=== PATIENT | female | born 1945 | race African-American/Black ===

== ENCOUNTER 2016-07-26 14:30 | Inpatient (IN) | payer MEDICARE ==
--- NOTE | 2016-07-26 15:14 | ED ---
Psych HPI - General Chief Complaint: Psychiatric Symptoms Stated Complaint: Mental Health Time Seen by Provider: 07/26/16 14:58 Source: patient Mode of arrival: ambulatory - History of Present Illness Initial Comments: This 70 year-old female presents with daughter with psychiatric concerns. The daughter states that she's been confused, combative, having grandiose thoughts, has had excessive spending, slings, sleepiness, personality changes, ananya, repetitive thoughts, calling people today at night, and suicidal thoughts. This apparently started right around July 08 and has been progressively worsening. They deny any previous known psychiatric problems. She apparently was diagnosed with temporal arteritis back in May and has been on prednisone. This is been tapered down from 60 mg a day to 15 mg per day. She is being treated at [facility] for this. They're unsure if her symptoms could be related to this. She was seen at [facility] recently and had a computed tomography scan urinalysis and blood work done which was essentially within normal limits. They have also followed up at [facility]. The patient does relate that she has depression and suicidal ideations but no plan. No other complaints or modifying factors. - Related Data Home Medications Medication Instructions Recorded Confirmed Glimepiride [Amaryl] 4 mg PO AC-BID 05/14/16 07/26/16 Levothyroxine Sodium [Synthroid] 50 mcg PO DAILY 05/14/16 07/26/16 Losartan Potassium 100 mg PO DAILY 05/14/16 07/26/16 Meloxicam [Mobic] 7.5 mg PO BID 05/14/16 07/26/16 amLODIPine [Norvasc] 5 mg PO BID 05/14/16 07/26/16 metFORMIN HCL [Glucophage] 1,000 mg PO BID 05/14/16 07/26/16 Ergocalciferol [Vitamin D2] 50,000 unit PO Q14D 07/26/16 07/26/16 Gabapentin [Neurontin] 300 mg PO DAILY 07/26/16 07/26/16 Insulin Aspart [NovoLOG] See Protocol SQ AC-TID 07/26/16 07/26/16 Insulin Glargine,Hum.rec.anlog 16 units SQ HS 07/26/16 07/26/16 [Hussain Guerrero] predniSONE 2.5 mg PO QAM 07/26/16 07/26/16 predniSONE 5 mg PO QAM 07/26/16 07/26/16 risperiDONE [RisperDAL] 0.5 mg PO BID 07/26/16 07/26/16 Allergies Allergy/AdvReac Type Severity Reaction Status Date / Time codeine AdvReac Nausea & Verified 07/26/16 14:54 Vomiting Review of Systems ROS Statement: Those systems with pertinent positive or pertinent negative responses have been documented in the HPI. ROS Other: All systems not noted in ROS Statement are negative. Past Medical History Past Medical History: Coronary Artery Disease (CAD), Dementia, Hyperlipidemia, Hypertension, Thyroid Disorder History of Any Multi-Drug Resistant Organisms: None Reported Additional Past Surgical History / Comment(s): carotid gland surgery Past Psychological History: No Psychological Hx Reported Smoking Status: Never smoker Past Alcohol Use History: None Reported Past Drug Use History: None Reported General Exam - General Exam Comments Initial Comments: GENERAL: The patient is well nourished and well hydrated. VITAL SIGNS: Heart rate, blood pressure, respiratory rate reviewed as recorded in nurse's notes. EYES: Pupils are round and reactive. Extraocular movements are intact. No conjunctival / lid redness or swelling. ENT: No external evidence of injury, swelling, or ecchymosis. Airway is patent. Throat is clear. NECK: Nontender. No swelling or evidence of injury. No subcutaneous emphysema. Trachea is midline. No thyroid mass. HEART: Regular rate and rhythm. Good peripheral pulses. LUNGS/CHEST: Breath sounds clear and equal bilaterally. No rales, rhonchi, or wheezes. No ecchymosis, subcutaneous emphysema, or tenderness. ABDOMEN: Abdomen soft without tenderness. No palpable masses or organomegaly. No peritoneal signs. No abdominal wall swelling or ecchymosis. EXTREMITIES: No extremity tenderness. Normal muscle tone and function. No thoracolumbar tenderness. NEUROLOGIC: Sensation is grossly intact. Cranial nerve exam reveals face is symmetrical, tongue is midline, speech is clear. SKIN: No abrasions or ecchymosis is noted. No induration or masses noted. PSYCHIATRIC: Alert and in no distress. Patient does have flight of thoughts and is quite conversive. Course Vital Signs 07/26/16 07/26/16 07/26/16 14:50 16:48 20:46 Temperature 98.3 F 97.8 F Pulse Rate 118 H 101 H 91 Respiratory 22 20 16 Rate Blood Pressure 174/103 158/90 155/89 O2 Sat by Pulse 98 98 98 Oximetry Medical Decision Making - Medical Decision Making The patient was seen and examined. All diagnostics are reviewed. These are fairly unremarkable. There is a slight elevation of the nonfasting blood sugar. A psychiatry consult is placed. They have evaluated the patient and are attempting psychiatric placement. It is felt as though she is medically cleared for further psychiatric treatment. - Lab Data Result diagrams: 07/26/16 16:41 07/26/16 16:41 Lab Results 07/26/16 07/26/16 07/26/16 Range/Units 15:38 16:41 16:41 WBC 10.9 H (3.8-10.6) k/uL RBC 4.63 (3.80-5.40) m/uL Hgb 12.0 (11.4-16.0) gm/dL Hct 38.7 (34.0-46.0) % MCV 83.7 (80.0-100.0) fL MCH 25.9 (25.0-35.0) pg MCHC 31.0 (31.0-37.0) g/dL RDW 15.3 (11.5-15.5) % Plt Count 221 (150-450) k/uL Neutrophils % 82 % Lymphocytes % 12 % Monocytes % 3 % Eosinophils % 1 % Basophils % 0 % Neutrophils # 9.0 H (1.3-7.7) k/uL Lymphocytes # 1.3 (1.0-4.8) k/uL Monocytes # 0.4 (0-1.0) k/uL Eosinophils # 0.1 (0-0.7) k/uL Basophils # 0.0 (0-0.2) k/uL Hypochromasia Slight Sodium 144 (137-145) mmol/L Potassium 4.3 (3.5-5.1) mmol/L Chloride 105 (98-107) mmol/L Carbon Dioxide 24 (22-30) mmol/L Anion Gap 15 mmol/L BUN 16 (7-17) mg/dL Creatinine 0.96 (0.52-1.04) mg/dL Est GFR (MDRD) Af Amer >60 (>60 ml/min/1.73 sqM) Est GFR (MDRD) Non-Af 58 (>60 ml/min/1.73 sqM) Glucose 177 H (74-99) mg/dL Calcium 9.9 (8.4-10.2) mg/dL Urine Color Colorless Urine Appearance Clear (Clear) Urine pH 5.5 (5.0-8.0) Ur Specific [place] 1.006 (1.001-1.035) Urine Protein Negative (Negative) Urine Glucose (UA) 3+ H (Negative) Urine Ketones Negative (Negative) Urine Blood Negative (Negative) Urine Nitrate Negative (Negative) Urine Bilirubin Negative (Negative) Urine Urobilinogen <2.0 (<2.0) mg/dL Ur Leukocyte Esterase Negative (Negative) Salicylates <1.0 mg/dL Urine Opiates Screen Not Detected (NotDetected) Ur Oxycodone Screen Not Detected (NotDetected) Urine Methadone Screen Not Detected (NotDetected) Ur Propoxyphene Screen Not Detected (NotDetected) Acetaminophen <10.0 ug/mL Ur Barbiturates Screen Not Detected (NotDetected) U Tricyclic Antidepress Not Detected (NotDetected) Ur Phencyclidine Scrn Not Detected (NotDetected) Ur Amphetamines Screen Not Detected (NotDetected) U Methamphetamines Scrn Not Detected (NotDetected) U Benzodiazepines Scrn Not Detected (NotDetected) Urine Cocaine Screen Not Detected (NotDetected) U Marijuana (THC) Screen Not Detected (NotDetected) Serum Alcohol <10 mg/dL Disposition Clinical Impression: Depression, Suicidal ideation, Acute psychosis, Ananya Disposition: OTHER INSTITUTION NOT DEFINED Time of Disposition: 21:20 - Out of Hospital Transfer - Req. Specs Out of Hospital Transfer - Requested Specifics: Psychiatric Non-ICU (Admit - geriatric psych)
[2016-07-26 15:55] LABS: Appearance,Urine Clear (Clear); Bilirubin,Urine Negative (Negative); Glucose,Urine (UA) 3+ (Negative); Ketones,Urine Negative (Negative); Leukocyte Esterase,Urine Negative (Negative); Nitrite,Urine Negative (Negative); PH, Urine 5.5 (5.0-8.0); Protein,Urine Negative (Negative); Specific Gravity,Urine 1.006 (1.001-1.035); UA Billing (MACRO vs. MICRO) CHEM; Urobilinogen,Urine <2.0 mg/dL (<2.0)
[2016-07-26 16:52] LABS: Basophils % (A) 0 %; CH 26.2; CHCM 31.4; Eosinophils # (A) 0.1 k/uL (0-0.7); Eosinophils % (A) 1 %; HCT 38.7 % (34.0-46.0); HDW 2.83; Hypochromasia Slight; Luc # (Auto) 0.17; Luc % (Auto) 2; Lymphocytes # (A) 1.3 k/uL (1.0-4.8); Lymphocytes % (A) 12 %; MCH 25.9 pg (25.0-35.0); MCV 83.7 fL (80.0-100.0); Mean Platelet Volume 6.8; Monocytes # (A) 0.4 k/uL (0-1.0); Monocytes % (A) 3 %; Neutrophils % (A) 82 %; RBC 4.63 m/uL (3.80-5.40); RDW 15.3 % (11.5-15.5); WBC 10.9 k/uL (3.8-10.6); WBC (Perox) 10.94
[2016-07-26 17:02] LABS: Acetaminophen <10.0 ug/mL; Alcohol <10 mg/dL; Anion Gap 15 mmol/L; Blood Urea Nitrogen 16 mg/dL (7-17); Calcium 9.9 mg/dL (8.4-10.2); Carbon Dioxide 24 mmol/L (22-30); Chloride 105 mmol/L (98-107); Glucose 177 mg/dL (74-99); Non-African American GFR(MDRD) 58 (>60 ml/min/1.73 sqM); Potassium 4.3 mmol/L (3.5-5.1); Salicylate <1.0 mg/dL; Sodium 144 mmol/L (137-145)
[2016-07-27] MEDS ORDERED: MAG HYDROX/AL HYDROX/SIMETH 30 ML CUP PO PRN (02:59)
[2016-07-27] MEDS ORDERED: risperiDONE 0.5 MG TAB PO SCH ×2 (04:00→09:00)
[2016-07-27] MEDS: ACETAMINOPHEN TAB 325 MG TAB PO PRN (04:45)
[2016-07-27 06:47] LABS: Glucose,Whole Blood 96 mg/dL (75-99)
[2016-07-27] MEDS: LEVOTHYROXINE 50 MCG TAB PO SCH (07:18)
[2016-07-27] MEDS: INSULIN LISPRO (humaLOG) 300 UNIT/3 ML VIAL SQ SCH ×4 (07:44→20:31)
[2016-07-27] MEDS: amLODIPine 5 MG TAB PO SCH ×2 (07:52→20:32)
[2016-07-27] MEDS: GLIMEPIRIDE 2 MG TAB PO SCH ×2 (07:52→17:54)
[2016-07-27] MEDS: LOSARTAN 50 MG TAB PO SCH (07:53)
[2016-07-27] MEDS: metFORMIN 500 MG TAB PO SCH ×2 (07:54→20:31)
[2016-07-27] MEDS: predniSONE 5 MG TAB PO SCH (07:55)
[2016-07-27] MEDS: predniSONE 10 MG TAB PO SCH (07:56)
[2016-07-27] MEDS ORDERED: ERGOCALCIFEROL 50,000 UNIT CAP PO SCH (09:00)
[2016-07-27 11:13] LABS: Hemoglobin A1C 7.7 % (4.2-6.1)
[2016-07-27 12:23] LABS: Glucose,Whole Blood 185 mg/dL (75-99)
--- NOTE | 2016-07-27 15:30 | P.HP ---
Psychiatric H&P - . History & Physical: Allergies Allergy/AdvReac Type Severity Reaction Status Date / Time codeine AdvReac Nausea & Verified 07/27/16 11:36 Vomiting Vital Signs Temp 97.6 F 07/27/16 03:00 Pulse 75 07/27/16 03:00 Resp 18 07/27/16 03:00 BP 171/88 07/27/16 03:00 Pulse Ox 98 07/27/16 01:26 Intake & Output 07/26/16 07/27/16 07/27/16 18:59 06:59 18:59 Weight 97.267 kg 97.267 kg Laboratory Last Values WBC 10.9 k/uL (3.8-10.6) H 07/26/16 16:41 RBC 4.63 m/uL (3.80-5.40) 07/26/16 16:41 Hgb 12.0 gm/dL (11.4-16.0) 07/26/16 16:41 Hct 38.7 % (34.0-46.0) 07/26/16 16:41 MCV 83.7 fL (80.0-100.0) 07/26/16 16:41 MCH 25.9 pg (25.0-35.0) 07/26/16 16:41 MCHC 31.0 g/dL (31.0-37.0) 07/26/16 16:41 RDW 15.3 % (11.5-15.5) 07/26/16 16:41 Plt Count 221 k/uL (150-450) 07/26/16 16:41 Neutrophils % 82 % 07/26/16 16:41 Lymphocytes % 12 % 07/26/16 16:41 Monocytes % 3 % 07/26/16 16:41 Eosinophils % 1 % 07/26/16 16:41 Basophils % 0 % 07/26/16 16:41 Neutrophils # 9.0 k/uL (1.3-7.7) H 07/26/16 16:41 Lymphocytes # 1.3 k/uL (1.0-4.8) 07/26/16 16:41 Monocytes # 0.4 k/uL (0-1.0) 07/26/16 16:41 Eosinophils # 0.1 k/uL (0-0.7) 07/26/16 16:41 Basophils # 0.0 k/uL (0-0.2) 07/26/16 16:41 Hypochromasia Slight 07/26/16 16:41 Sodium 144 mmol/L (137-145) 07/26/16 16:41 Potassium 4.3 mmol/L (3.5-5.1) 07/26/16 16:41 Chloride 105 mmol/L (98-107) 07/26/16 16:41 Carbon Dioxide 24 mmol/L (22-30) 07/26/16 16:41 Anion Gap 15 mmol/L 07/26/16 16:41 BUN 16 mg/dL (7-17) 07/26/16 16:41 Creatinine 0.96 mg/dL (0.52-1.04) 07/26/16 16:41 Est GFR (MDRD) Af Amer >60 (>60 ml/min/1.73 sqM) 07/26/16 16:41 Est GFR (MDRD) Non-Af 58 (>60 ml/min/1.73 sqM) 07/26/16 16:41 Glucose 177 mg/dL (74-99) H 07/26/16 16:41 POC Glucose (mg/dL) 185 mg/dL (75-99) H 07/27/16 12:18 POC Glu Senior Occupational Therapist ID [place] Aguilar 07/27/16 12:[address] Glu mg/dL 174 mg/dL 07/26/16 16:41 Hemoglobin A1c 7.7 % (4.2-6.1) H 07/26/16 16:41 Calcium 9.9 mg/dL (8.4-10.2) 07/26/16 16:41 TSH 1.140 mIU/L (0.465-4.680) 07/26/16 16:41 Urine Color Colorless 07/26/16 15:38 Urine Appearance Clear (Clear) 07/26/16 15:38 Urine pH 5.5 (5.0-8.0) 07/26/16 15:38 Ur Specific [place] 1.006 (1.001-1.035) 07/26/16 15:38 Urine Protein Negative (Negative) 07/26/16 15:38 Urine Glucose (UA) 3+ (Negative) H 07/26/16 15:38 Urine Ketones Negative (Negative) 07/26/16 15:38 Urine Blood Negative (Negative) 07/26/16 15:38 Urine Nitrate Negative (Negative) 07/26/16 15:38 Urine Bilirubin Negative (Negative) 07/26/16 15:38 Urine Urobilinogen <2.0 mg/dL (<2.0) 07/26/16 15:38 Ur Leukocyte Esterase Negative (Negative) 07/26/16 15:38 Salicylates <1.0 mg/dL 07/26/16 16:41 Urine Opiates Screen Not Detected (NotDetected) 07/26/16 15:38 Ur Oxycodone Screen Not Detected (NotDetected) 07/26/16 15:38 Urine Methadone Screen Not Detected (NotDetected) 07/26/16 15:38 Ur Propoxyphene Screen Not Detected (NotDetected) 07/26/16 15:38 Acetaminophen <10.0 ug/mL 07/26/16 16:41 Ur Barbiturates Screen Not Detected (NotDetected) 07/26/16 15:38 U Tricyclic Antidepress Not Detected (NotDetected) 07/26/16 15:38 Ur Phencyclidine Scrn Not Detected (NotDetected) 07/26/16 15:38 Ur Amphetamines Screen Not Detected (NotDetected) 07/26/16 15:38 U Methamphetamines Scrn Not Detected (NotDetected) 07/26/16 15:38 U Benzodiazepines Scrn Not Detected (NotDetected) 07/26/16 15:38 Urine Cocaine Screen Not Detected (NotDetected) 07/26/16 15:38 U Marijuana (THC) Screen Not Detected (NotDetected) 07/26/16 15:38 Serum Alcohol <10 mg/dL 07/26/16 16:41 07/27/16 15:00 IDENTIFYING DATA: This patient is a 70-year-old -[place] female who was admitted to the mental health unit through the emergency room for acute symptoms of rabia and psychosis. HPI: The patient presents with a petition filled out by her daughter Loren stating "confusion total loss of short-term memory, combativeness, impulsive spending emptied her account checking, suicidal thoughts, fits of rage, insomnia only 3 hours a night, rambling, rabia, delusions, grand ideas, thinks she has $700,000 in bank, leaving she had a conversation she didn't have, leaving the house refusing to return running to the bank". The patient states that she has temporal arteritis and she is currently on prednisone 15 mg daily. She reports that this was started back in May and since then she has had a multitude of symptoms. She agrees with many of the symptoms on the petition except for the excessive spending. She also states that she does not intend to stay on this mental health unit and wants to be discharged today. She threatens to natalee me if I don't release her. She states she has an organization called "[employer]" and plans to purchase 9 homes as part of a community outreach. She reports no hallucinations other than hearing "the voice of the Lord". She describes having paranoid thoughts and grandiose ideas. She reports no suicidal or homicidal ideation. She is endorsing no anxiety. She states that she does feel depressed and has suicidal ideation because "people keep bothering me and bugging me about the symptoms". She had recently presented to her primary care physician's office and Risperdal 0.5 mg twice daily was prescribed but the medication was not started as an outpatient. I was able to speak with the petitioner and the patient's other daughter in person and we discussed the patient's diagnosis and treatment. They emphasized the patient's recent insomnia. Her daughters requested visiting off of normal visiting times and that will be granted PAST PSYCHIATRIC HISTORY: No prior inpatient psychiatric care, no current outpatient psychiatric care, she states that she did have a suicide attempt at age 19 where she overdosed on sleeping pills but was not subsequently hospitalized. PMH: Diagnosis of temporal arteritis, coronary artery disease, hyperlipidemia, hypertension, thyroid disease, diabetes ALLERGIES: NO KNOWN DRUG ALLERGIES MEDICATIONS: The patient is currently prescribed Norvasc, Amaryl, Motrin, Humalog, Synthroid, Cozaar, Glucophage, prednisone 15 mg daily [] CHEMICAL DEPENDENCY HISTORY: No reported use of alcohol, marijuana, or any other illicit drug. She reports that she quit cigarette smoking. She has never been in residential treatment for chemical dependency reasons. FAMILY PSYCHIATRIC HISTORY: She states to her brothers were known to have had psychosis and one required inpatient psychiatric treatment, no suicides in the family FAMILY CHEMICAL DEPENDENCY HISTORY: Unknown SOCIAL HISTORY: The patient is a 70-year-old -[place] female she states she has been for over 40 years. She reports having 3 children 2 of her grandchildren live with her. 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 She has a high school education and attended 2 years at [employer]. She had 9 siblings but states all of them are . She has no history of service. She reports being born and raised in [place] and has lived here her whole life. In terms of legal history she states when she was an adolescent she was arrested for shoplifting, she reports no abuse history. MENTAL STATUS EXAM: The patient is an overweight -[place] female appearing her stated age, she presents with adequate hygiene grooming she is ambulating with a wheeled walker. Eye contact is appropriate. She is initially pleasant but becomes argumentative during the course of the hospitalization. She reports her mood is fine she states she has struggled since using the steroids however. Her speech is fluent spontaneous for boasts and pressured at times. She spontaneously reports grandiose thinking as well as paranoid and persecutory thoughts. She seems to have moments of insight recognizing she is doing things out of character and at other times lacks that insight and demands to be discharged. Insight and judgment are impaired. She is reporting suicidal ideation and depressive symptoms but no homicidal ideation. In terms of hallucinations she states "I hear the voice of the Lord" . She demonstrates no verbal or physical aggressiveness but does get mildly agitated towards the end of our interview when discussing treatment planning. She is alert she is oriented to person place and date she was able to register 3 words but could not recall any of the 3 after delay of 3 minutes. She was able to recall 2 words with multiple choice cues but could not get the third. When asked to name the months of the year backwards she omitted September when asked to name 5 major cities [facility] she began naming states. She was prompted and began naming states again and was prompted a third time and named 5 cities in [place] she was able to name 3 objects and she was able to abstract a proverb STRENGTHS/WEAKNESSES: Strengths: Family support, housing, income weaknesses: Current symptoms of rabia and psychosis INTELLECTUAL FUNCTIONING: Average IMPRESSIONS: [] 1. Psychosis unspecified rule out symptoms of psychosis and rabia secondary to steroid use, rule out remote history of depression 2. Deferred 3. Coronary artery disease, diabetes, hypothyroidism, temporal arteritis 4. Psychosocial dysfunction secondary to symptoms of rabia and psychosis PLAN: The patient has been admitted to the mental health unit she is here in voluntarily. I will complete a second clinical certificate due to her unwillingness to remain here voluntarily. We will utilize Risperdal 1 mg at bedtime, the M tab formulation. She has been seen by the sap abap developer for a medical consultation. Social work has met with the patient for a psychosocial assessment and begin discharge planning. We will monitor the patient for safety and encourage her appropriate participation in the milieu and monitor for symptoms of rabia and psychosis. We will monitor her sleep at night. As noted I met with her daughters to discuss diagnosis and treatment planning and discharge planning. We discussed utilizing Risperdal for symptoms of rabia and psychosis it's potential benefits and risks. 07/27/16 15:20
[2016-07-27 17:40] LABS: Glucose,Whole Blood 145 mg/dL (75-99)
[2016-07-27 20:13] LABS: Glucose,Whole Blood 144 mg/dL (75-99)
[2016-07-27] MEDS: risperiDONE ODT 1 MG TAB PO SCH (20:56)
--- NOTE | 2016-07-27 23:20 | P.CONS ---
History of Present Illness - Reason for Consult Consult date: 07/27/16 - History of Present Illness This is a pleasant 70 year old lady patient of Dr Johnston. She was recently diagnosed having temporal arteritis proven by biopsy, follwed at [facility] requiring oral tapering prednisone on director long term care basis. She is currently uisng 15 mg prednisone, She also has underlying diabetes mellitus type 2, hypothyroidism, hypertension.. She comes in thru the emergency room with psychosis, ananya symptoms and insomnia, agitation, She hasnt had sleep isnce 2015 when she was diagnosed to have temporal arteritis. She states improve t of her symptoms after stqrting resperidal. sHe has excessive spending, personality change, suicidal thoughts with current plans. Review of Systems All systems: negative Constitutional: Reports as per HPI, Reports fatigue, Denies anorexia, Denies chills, Denies chronic headaches, Denies chronic pain, Denies daytime sleepiness , Denies fever, Denies lethargy, Denies malaise, Denies night sweats, Denies poor appetite, Denies sweats, Denies weakness, Denies weight gain, Denies weight loss Cardiovascular: Reports as per HPI, Denies chest pain, Denies claudication, Denies decreased exercise tolerance, Denies dyspnea on exertion, Denies edema, Denies high blood pressure, Denies irregular heart beat, Denies leg edema, Denies lightheadedness, Denies orthopnea, Denies palpitations, Denies paroxysmal nocturnal dyspnea, Denies phlebitis, Denies rapid heart beat, Denies shortness of breath, Denies syncope Gastrointestinal: Reports as per HPI, Reports abdominal pain, Denies belching, Denies bloating, Denies BRBPR, Denies change in bowel habits, Denies coffee ground emesis, Denies constipation, Denies diarrhea, Denies dyspepsia, Denies early satiety, Denies excessive gas, Denies heartburn, Denies hematemesis, Denies hematochezia, Denies indigestion, Denies jaundice, Denies lactose intolerance, Denies loss of appetite, Denies melena, Denies nausea, Denies vomiting Genitourinary: Reports as per HPI, Denies abnormal vaginal bleeding, Denies decreased libido, Denies difficulty conceiving, Denies difficulty voiding, Denies dysmenorrhea, Denies dyspareunia, Denies dysuria, Denies flank pain, Denies genital sores, Denies hematuria, Denies hot flashes, Denies incomplete emptying, Denies kidney stones, Denies menorrhagia, Denies mixed incontinence, Denies nocturia, Denies pelvic pain, Denies post void dribbling, Denies , Denies prolapse symptoms, Denies stress incontinence, Denies urge incontinence , Denies urgency, Denies urinary frequency, Denies vaginal discharge, Denies vaginal dryness, Denies vaginal itching, Denies vaginal odor Menstruation: Reports as per HPI, Reports postmenopausal Musculoskeletal: Reports as per HPI, Reports gait dysfunction, Denies arm numbness/tingling, Denies atrophy, Denies fractures, Denies frequent falls, Denies hot joints, Denies leg numbness/tingling, Denies limitation of motion, Denies loss of height, Denies low back pain, Denies morning stiffness, Denies muscle cramps, Denies muscle weakness, Denies myalgias, Denies neck pain, Denies neck stiffness, Denies prior amputations, Denies redness of joints, Denies shooting arm pain, Denies shooting leg pain Integumentary: Reports as per HPI Neurological: Reports as per HPI, Denies aphasia, Denies ataxia, Denies balance difficulties, Denies burning pain, Denies change in mentation, Denies change in smell/taste, Denies change in speech, Denies confusion, Denies convulsions, Denies double vision, Denies gait dysfunction, Denies head injury, Denies headaches, Denies hearing difficulties, Denies lack of coordination, Denies loss of vision, Denies memory loss, Denies migraines, Denies motor disturbance, Denies numbness, Denies paralysis, Denies paresthesias, Denies seizures, Denies sensory deficit, Denies spasticity, Denies syncope, Denies tic, Denies tingling , Denies transient paralysis, Denies tremors, Denies vertigo, Denies weakness, Denies visual changes Psychiatric: Reports as per HPI, Denies anhedonia, Denies anxiety, Denies anxiety attacks, Denies change in appetite, Denies change in libido, Denies change in sleep habits, Denies confusion, Denies depression, Denies difficulty concentrating, Denies disorientation, Denies hallucinations, Denies hopelessness , Denies hypersomnia, Denies insomnia, Denies irritability, Denies memory loss, Denies mood swings, Denies paranoia, Denies sadness/tearfulness, Denies sleep disturbances, Denies suicidal ideation Endocrine: Reports as per HPI, Denies cold intolerance, Denies deepening of the voice, Denies excessive sweating, Denies excessive thirst, Denies fatigue, Denies flushing, Denies heat intolerance, Denies high blood sugars, Denies increase in ring/shoe/hat size, Denies low blood sugars, Denies nocturia, Denies palpitations, Denies polydipsia, Denies polyphagia, Denies polyuria, Denies proptosis, Denies recent glucocorticoid use, Denies thyroid mass, Denies weight change Hematologic/Lymphatic: Reports as per HPI Allergic/Immunologic: Reports as per HPI, Denies allergic rhinitis, Denies anaphylaxis, Denies angioedema, Denies gluten intolerance, Denies persistent infections, Denies seasonal allergies, Denies urticaria, Denies wheezing Past Medical History Past Medical History: Coronary Artery Disease (CAD), Dementia, Diabetes Mellitus , Hyperlipidemia, Hypertension, Thyroid Disorder (parotid gland tumor removal, chest wall excisional biopsy benign.) History of Any Multi-Drug Resistant Organisms: None Reported Additional Past Surgical History / Comment(s): carotid gland surgery Past Psychological History: No Psychological Hx Reported Additional Psychological History / Comment(s): Dementia Smoking Status: Never smoker Past Alcohol Use History: None Reported Past Drug Use History: None Reported Medications and Allergies Home Medications Medication Instructions Recorded Confirmed Type Glimepiride [Amaryl] 2 mg PO AC-BID 05/14/16 07/27/16 History Levothyroxine Sodium [Synthroid] 50 mcg PO DAILY 05/14/16 07/26/16 History Losartan Potassium 100 mg PO DAILY 05/14/16 07/26/16 History amLODIPine [Norvasc] 5 mg PO BID 05/14/16 07/26/16 History metFORMIN HCL [Glucophage] 1,000 mg PO BID 05/14/16 07/26/16 History Ergocalciferol [Vitamin D2] 50,000 unit PO Q14D 07/26/16 07/27/16 History Insulin Aspart [NovoLOG] See Protocol SQ AC-TID 07/26/16 07/26/16 History predniSONE 5 mg PO QAM 07/26/16 07/26/16 History predniSONE 10 mg PO QAM 07/26/16 07/27/16 History risperiDONE [RisperDAL] 0.5 mg PO BID 07/26/16 07/26/16 History Ibuprofen [Motrin] 800 mg PO Q8HR PRN 07/27/16 07/27/16 History Allergies Allergy/AdvReac Type Severity Reaction Status Date / Time codeine AdvReac Nausea & Verified 07/27/16 11:36 Vomiting Physical Exam Vitals: Vital Signs Temp Pulse Resp BP 07/27/16 03:00 97.6 F 75 18 171/88 Intake and Output 07/26/16 07/27/16 07/27/16 22:59 06:59 14:59 Other: Weight 97.267 kg 97.267 kg Patient Weight 07/28/16 06:59 Weight 97.267 kg - Constitutional General appearance: average body habitus, cooperative, morbidly obese, no acute distress - EENT Eyes: disc margins sharp, PERRLA, dentition normal ENT: hearing grossly normal, NA/AT, normal oropharynx - Neck Neck: no lymphadenopathy, normal ROM, no other, no rigidity, no stridor, no thyromegaly Thyroid: bilateral: normal size - Respiratory Respiratory: bilateral: CTA - Gastrointestinal General gastrointestinal: normal bowel sounds - Integumentary Integumentary: normal, normal turgor - Musculoskeletal Musculoskeletal: generalized weakness, strength equal bilaterally Results CBC & Chem 7: 07/26/16 16:41 07/26/16 16:41 Labs: Abnormal Lab Results - Last 24 Hours (Table) 07/27/16 Range/Units 12:18 POC Glucose (mg/dL) 185 H (75-99) mg/dL Laboratory Results WBC 10.9 k/uL (3.8-10.6) H 07/26/16 16:41 RBC 4.63 m/uL (3.80-5.40) 07/26/16 16:41 Hgb 12.0 gm/dL (11.4-16.0) 07/26/16 16:41 Hct 38.7 % (34.0-46.0) 07/26/16 16:41 MCV 83.7 fL (80.0-100.0) 07/26/16 16:41 MCH 25.9 pg (25.0-35.0) 07/26/16 16:41 MCHC 31.0 g/dL (31.0-37.0) 07/26/16 16:41 RDW 15.3 % (11.5-15.5) 07/26/16 16:41 Plt Count 221 k/uL (150-450) 07/26/16 16:41 Neutrophils % 82 % 07/26/16 16:41 Lymphocytes % 12 % 07/26/16 16:41 Monocytes % 3 % 07/26/16 16:41 Eosinophils % 1 % 07/26/16 16:41 Basophils % 0 % 07/26/16 16:41 Neutrophils # 9.0 k/uL (1.3-7.7) H 07/26/16 16:41 Lymphocytes # 1.3 k/uL (1.0-4.8) 07/26/16 16:41 Monocytes # 0.4 k/uL (0-1.0) 07/26/16 16:41 Eosinophils # 0.1 k/uL (0-0.7) 07/26/16 16:41 Basophils # 0.0 k/uL (0-0.2) 07/26/16 16:41 Hypochromasia Slight 07/26/16 16:41 Sodium 144 mmol/L (137-145) 07/26/16 16:41 Potassium 4.3 mmol/L (3.5-5.1) 07/26/16 16:41 Chloride 105 mmol/L (98-107) 07/26/16 16:41 Carbon Dioxide 24 mmol/L (22-30) 07/26/16 16:41 Anion Gap 15 mmol/L 07/26/16 16:41 BUN 16 mg/dL (7-17) 07/26/16 16:41 Creatinine 0.96 mg/dL (0.52-1.04) 07/26/16 16:41 Est GFR (MDRD) Af Amer >60 (>60 ml/min/1.73 sqM) 07/26/16 16:41 Est GFR (MDRD) Non-Af 58 (>60 ml/min/1.73 sqM) 07/26/16 16:41 Glucose 177 mg/dL (74-99) H 07/26/16 16:41 POC Glucose (mg/dL) 185 mg/dL (75-99) H 07/27/16 12:18 POC Glu Office Administrator ID [place] Aguilar 07/27/16 12:[address] Glu mg/dL 174 mg/dL 07/26/16 16:41 Hemoglobin A1c 7.7 % (4.2-6.1) H 07/26/16 16:41 Calcium 9.9 mg/dL (8.4-10.2) 07/26/16 16:41 TSH 1.140 mIU/L (0.465-4.680) 07/26/16 16:41 Urine Color Colorless 07/26/16 15:38 Urine Appearance Clear (Clear) 07/26/16 15:38 Urine pH 5.5 (5.0-8.0) 07/26/16 15:38 Ur Specific Golden 1.006 (1.001-1.035) 07/26/16 15:38 Urine Protein Negative (Negative) 07/26/16 15:38 Urine Glucose (UA) 3+ (Negative) H 07/26/16 15:38 Urine Ketones Negative (Negative) 07/26/16 15:38 Urine Blood Negative (Negative) 07/26/16 15:38 Urine Nitrate Negative (Negative) 07/26/16 15:38 Urine Bilirubin Negative (Negative) 07/26/16 15:38 Urine Urobilinogen <2.0 mg/dL (<2.0) 07/26/16 15:38 Ur Leukocyte Esterase Negative (Negative) 07/26/16 15:38 Salicylates <1.0 mg/dL 07/26/16 16:41 Urine Opiates Screen Not Detected (NotDetected) 07/26/16 15:38 Ur Oxycodone Screen Not Detected (NotDetected) 07/26/16 15:38 Urine Methadone Screen Not Detected (NotDetected) 07/26/16 15:38 Ur Propoxyphene Screen Not Detected (NotDetected) 07/26/16 15:38 Acetaminophen <10.0 ug/mL 07/26/16 16:41 Ur Barbiturates Screen Not Detected (NotDetected) 07/26/16 15:38 U Tricyclic Antidepress Not Detected (NotDetected) 07/26/16 15:38 Ur Phencyclidine Scrn Not Detected (NotDetected) 07/26/16 15:38 Ur Amphetamines Screen Not Detected (NotDetected) 07/26/16 15:38 U Methamphetamines Scrn Not Detected (NotDetected) 07/26/16 15:38 U Benzodiazepines Scrn Not Detected (NotDetected) 07/26/16 15:38 Urine Cocaine Screen Not Detected (NotDetected) 07/26/16 15:38 U Marijuana (THC) Screen Not Detected (NotDetected) 07/26/16 15:38 Serum Alcohol <10 mg/dL 07/26/16 16:41 Assessment and Plan Plan: 1. Ananya aggravated by prednisone use and insomnia with sleep deprivation. patient cannot get off the prednisone with fears of causing blindlness from temporal arteritis. she showed immediate response with resperidal. no sleep agents currently offered, medications need to be simplified with the regimen offered by psychiatry. 2. temporal aeteritis, currently on predniosne 15 mg, to be tapered down slowly by [facility] 3. Diabetes Mellitus type 2' currenlty on glimepwride, metofrmin and maribel.og scale correctional coverage 4. hypothyroidism, ucrrently on levothyroxine 5 hypertension on losaetwn norvasc. no current changes made 6insomnia with sleep deprivation syndrome, see above' might need to add melatonin [address] Rinaldi in allowing us to participate in her care. Please do not hesistate to contact us for any medical problems that may arise during her care. Time with Patient: Greater than 30
[2016-07-28] MEDS: ACETAMINOPHEN TAB 325 MG TAB PO PRN (03:38)
[2016-07-28 06:55] LABS: Glucose,Whole Blood 131 mg/dL (75-99)
[2016-07-28] MEDS: LEVOTHYROXINE 50 MCG TAB PO SCH (07:09)
[2016-07-28] MEDS: LOSARTAN 50 MG TAB PO SCH (08:26)
[2016-07-28] MEDS: amLODIPine 5 MG TAB PO SCH ×2 (08:26→21:13)
[2016-07-28] MEDS: GLIMEPIRIDE 2 MG TAB PO SCH ×2 (08:26→17:34)
[2016-07-28] MEDS: predniSONE 10 MG TAB PO SCH (08:27)
[2016-07-28] MEDS: predniSONE 5 MG TAB PO SCH (08:27)
[2016-07-28] MEDS: metFORMIN 500 MG TAB PO SCH ×2 (08:27→21:14)
[2016-07-28] MEDS: INSULIN LISPRO (humaLOG) 300 UNIT/3 ML VIAL SQ SCH ×5 (08:28→21:13)
[2016-07-28] MEDS: IBUPROFEN 800 MG TAB PO PRN ×2 (08:33→21:15)
--- NOTE | 2016-07-28 11:08 | P.PN ---
Progress Note - Text Interval history: The patient is found at a table in the hallway playing cards with a peer. She follows me to an interview room. She states that she would like to be discharged as she has to giveaway houses. She reports having 100s of thousands of dollars and would like to donate to 40 inch TVs to the mental health unit. She states that if I do not agree she will go to the head of the hospital to accomplish this task. She reports she has an divorce attorney retained for several lawsuits. She reports as she feels more comfortable here today she will consider not suing me. She requests to have snacks in between meals and we will have dietary meet with her. She states she slept 4 hours last evening staff report she slept 3 hours last evening. Patient's appetite is stable she has been directable. She becomes mildly agitated when she was weighed as she does not believe the measurement provided. She is reporting no side effects from the Risperdal at this time. Mental status exam: The patient is a overweight -Spanish female appearing her stated age. She is ambulating with a wheeled walker. She is dressed in her own clothing. Eye contact is appropriate speech is spontaneous fluent nonpressured. She spontaneously describes a delusional thought content mainly grandiose in nature. She reports no thoughts of self-harm or harm to others. Thought process can be linear for much of the conversation she can be briefly tangential at times. Insight and judgment impaired. She demonstrates no verbal or physical aggressiveness. Plan: We are utilizing Risperdal 1 mg at bedtime to address her symptoms of psychosis and rabia. We will allow the medication time to demonstrate efficacy. We will continue to monitor her for safety including vital signs. We will ask dietary to meet with the patient regarding the availability of snacks in between meals. Her family will be permitted to visit off normal visiting hours to provide the patient additional support. The patient's encouraged to participate in the milieu.
[2016-07-28 11:38] LABS: Glucose,Whole Blood 127 mg/dL (75-99)
[2016-07-28 17:37] LABS: Glucose,Whole Blood 183 mg/dL (75-99)
[2016-07-28] MEDS ORDERED: ZIPRASIDONE 20 MG VIAL IM PRN (18:17)
[2016-07-28] MEDS: risperiDONE ODT 1 MG TAB PO SCH (18:19)
[2016-07-28 20:21] LABS: Glucose,Whole Blood 152 mg/dL (75-99)
[2016-07-28] MEDS: MELATONIN 3 MG TABLET PO SCH (21:14)
[2016-07-29 06:21] LABS: Glucose,Whole Blood 96 mg/dL (75-99)
[2016-07-29] MEDS: LEVOTHYROXINE 50 MCG TAB PO SCH (06:28)
[2016-07-29] MEDS: LOSARTAN 50 MG TAB PO SCH (08:27)
[2016-07-29] MEDS: GLIMEPIRIDE 2 MG TAB PO SCH ×2 (08:27→18:34)
[2016-07-29] MEDS: metFORMIN 500 MG TAB PO SCH ×2 (08:28→21:16)
[2016-07-29] MEDS: predniSONE 10 MG TAB PO SCH (08:28)
[2016-07-29] MEDS: amLODIPine 5 MG TAB PO SCH ×2 (08:28→21:17)
[2016-07-29] MEDS: predniSONE 5 MG TAB PO SCH (08:28)
[2016-07-29] MEDS: INSULIN LISPRO (humaLOG) 300 UNIT/3 ML VIAL SQ SCH ×4 (09:12→21:15)
--- NOTE | 2016-07-29 09:46 | P.PN ---
Progress Note - Text Interval history: The patient is found at the front counter attendant she follows me to an interview room. She had approached me several times this morning to speak intrusively. She states that she is going to be discharged today and will go to the [facility] with her family for 2 days. She states that she will purchase 9 homes to give away. She reports praying for everybody on the unit. She discusses concerns that doctors in this hospital are pretending to be gynecologists to take advantage of female patients. She reports sleeping approximate 4 hours last evening. She is reporting no side effects from her medication. She has consistently been complaining about not getting enough food while here we have consulted dietary. Mental status exam: The patient is an overweight -Guyanese female she is dressed in her own clothing she is ambulating with a wheeled walker. She initially is seated calmly in her chair and is soft-spoken but during the session becomes acutely agitated uses profanity and informs me that I'm fired. She often makes references to suing the hospital and several other individuals. She spontaneously reports grandiose delusional thoughts as well as paranoid and persecutory auditory thoughts. Insight and judgment are impaired. She maintains a bland affect until she became agitated later in the session. Once agitated she quickly stood up and left the room. She threatened no physical violence. Thought process is not well organized she demonstrates tangential thinking and loose associations. There are times when she can be more linear. Plan: The patient continues to demonstrate acute symptoms of psychosis that are causing psychosocial dysfunction. I will titrate the Risperdal M tab to 0.5 mg in the morning and continue the 1 mg at bedtime. We will consider utilizing Depakote as a mood stabilizer but at this time controlling the psychosis appears to be more relevant. We will continue to monitor her for safety, encourage her appropriate participation in the milieu, and we will continue to try to provide reality orientation when possible. We will stay in touch with her family to involve them in treatment and discharge planning. We are anticipating a deferral conference this week. Vital signs reviewed there is no evidence of orthostasis she is reporting no dizziness she is ambulating appropriately with her wheeled walker.
[2016-07-29] MEDS: risperiDONE ODT 1 MG TAB PO SCH ×2 (10:04→21:16)
[2016-07-29 11:07] VITALS: BMI 37.7
[2016-07-29 13:19] LABS: Glucose,Whole Blood 160 mg/dL (75-99)
[2016-07-29 17:27] LABS: Glucose,Whole Blood 172 mg/dL (75-99)
[2016-07-29 19:56] LABS: Glucose,Whole Blood 158 mg/dL (75-99)
[2016-07-29] MEDS: MELATONIN 3 MG TABLET PO SCH (21:16)
[2016-07-30 05:28] LABS: Glucose,Whole Blood 65 mg/dL (75-99)
[2016-07-30] MEDS: LEVOTHYROXINE 50 MCG TAB PO SCH ×2 (05:30→05:45)
[2016-07-30 05:44] LABS: Glucose,Whole Blood 91 mg/dL (75-99)
[2016-07-30] MEDS: INSULIN LISPRO (humaLOG) 300 UNIT/3 ML VIAL SQ SCH ×4 (08:57→22:11)
[2016-07-30] MEDS: LOSARTAN 50 MG TAB PO SCH (09:27)
[2016-07-30] MEDS: predniSONE 10 MG TAB PO SCH (09:27)
[2016-07-30] MEDS: amLODIPine 5 MG TAB PO SCH ×2 (09:27→22:04)
[2016-07-30] MEDS: predniSONE 5 MG TAB PO SCH (09:27)
[2016-07-30] MEDS: risperiDONE ODT 1 MG TAB PO SCH ×2 (09:28→22:05)
[2016-07-30] MEDS: GLIMEPIRIDE 2 MG TAB PO SCH ×2 (09:33→09:40)
[2016-07-30] MEDS: metFORMIN 500 MG TAB PO SCH ×3 (09:33→22:04)
--- NOTE | 2016-07-30 09:47 | P.PN ---
Progress Note - Text Interval history: The patient is found in the hallway at the front office director she follows me to an interview room. The patient continues to be hyperverbal and psychotic per staff report. She does require redirection. The patient apologizes for her agitated behavior yesterday. She states that she loves the food here and does not mind staying here. Social work notes reviewed and it does appear that her family feels that this behavior is definitely triggered by use of the steroids. The patient states she is willing to sign a release so that I can contact her physician at the [facility] to discuss any changes we might be able to make to the steroid. The patient reports sleeping about 4 hours last night nursing notes indicate she slept 3 hours. The patient continues to spontaneously describe paranoid thoughts and grandiose thinking. Social work notes indicate the patient has not had any psychiatric symptoms prior to May when the steroids were initiated. Mental status exam: The patient is an overweight -Eritrean female she is ambulating without a walker this morning. Eye contact is appropriate speech is spontaneous fluent she is quite verbose she is directable today. She demonstrates loose associations flight of ideas at times tangential thinking. She continues to demonstrate a psychotic thought content. She speaks of having an excessive amount of money and will give away houses and is offering money to patient's on the mental health unit. She expresses concerns about "mean nurses " and other staff in a persecutory fashion. Insight and judgment are poor. She demonstrates no verbal or physical aggressiveness today. Affect is less labile than yesterday. Plan: The patient will continue on her current medication we will contact her treating physician at the [facility] who is prescribing the prednisone. The patient requires continued psychiatric hospitalization for her symptoms of rabia and psychosis. Vital signs reviewed. We will continue to monitor her for safety and encourage her appropriate participation in the milieu. Her family continues to visit her and have been involved in the treatment planning.
[2016-07-30 12:40] LABS: Glucose,Whole Blood 197 mg/dL (75-99)
[2016-07-30] MEDS: GLIMEPIRIDE 1 MG TAB PO SCH (17:54)
[2016-07-30 17:59] LABS: Glucose,Whole Blood 149 mg/dL (75-99)
[2016-07-30 20:13] LABS: Glucose,Whole Blood 186 mg/dL (75-99)
[2016-07-30] MEDS ORDERED: ZIPRASIDONE 20 MG VIAL IM STA (20:44)
[2016-07-30] MEDS ORDERED: ZIPRASIDONE 20 MG VIAL IM ONE ×2 (21:00→21:06)
[2016-07-30] MEDS ORDERED: WATER FOR INJECTION, STERILE 10 ML IV ONE ×2 (21:00→21:05)
[2016-07-30] MEDS: MELATONIN 3 MG TABLET PO SCH (22:04)
[2016-07-31] MEDS: LEVOTHYROXINE 50 MCG TAB PO SCH ×2 (05:46→05:53)
[2016-07-31 06:18] LABS: Glucose,Whole Blood 99 mg/dL (75-99)
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
[2016-07-31] MEDS: INSULIN LISPRO (humaLOG) 300 UNIT/3 ML VIAL SQ SCH ×4 (09:36→20:53)
[2016-07-31] MEDS: GLIMEPIRIDE 2 MG TAB PO SCH (09:37)
[2016-07-31 12:03] LABS: Glucose,Whole Blood 135 mg/dL (75-99)
[2016-07-31] MEDS: LOSARTAN 50 MG TAB PO SCH (12:47)
[2016-07-31] MEDS: risperiDONE ODT 1 MG TAB PO SCH ×2 (12:47→20:49)
[2016-07-31] MEDS: metFORMIN 500 MG TAB PO SCH ×3 (12:47→20:53)
[2016-07-31] MEDS: predniSONE 10 MG TAB PO SCH ×2 (12:47→13:51)
[2016-07-31] MEDS: predniSONE 5 MG TAB PO SCH (12:47)
[2016-07-31] MEDS: amLODIPine 5 MG TAB PO SCH ×2 (12:47→20:49)
[2016-07-31 17:22] LABS: Glucose,Whole Blood 162 mg/dL (75-99)
[2016-07-31] MEDS: GLIMEPIRIDE 1 MG TAB PO SCH (17:59)
[2016-07-31] MEDS: DIVALPROEX ER 250 MG TAB.ER.24H PO SCH (20:50)
[2016-07-31 21:26] LABS: Glucose,Whole Blood 167 mg/dL (75-99)
[2016-08-01] MEDS: LEVOTHYROXINE 50 MCG TAB PO SCH (06:30)
[2016-08-01] MEDS: MAGNESIUM HYDROXIDE 2,400 MG/10 ML CUP PO PRN (06:31)
[2016-08-01 07:01] LABS: Glucose,Whole Blood 96 mg/dL (75-99)
[2016-08-01] MEDS: amLODIPine 5 MG TAB PO SCH ×2 (08:18→21:18)
[2016-08-01] MEDS: LOSARTAN 50 MG TAB PO SCH (08:18)
[2016-08-01] MEDS: metFORMIN 500 MG TAB PO SCH ×2 (08:20→21:16)
[2016-08-01] MEDS: predniSONE 10 MG TAB PO SCH (08:20)
[2016-08-01] MEDS: GLIMEPIRIDE 2 MG TAB PO SCH (08:20)
[2016-08-01] MEDS: risperiDONE ODT 1 MG TAB PO SCH ×2 (08:20→21:18)
[2016-08-01] MEDS: INSULIN LISPRO (humaLOG) 300 UNIT/3 ML VIAL SQ SCH ×4 (08:20→21:16)
[2016-08-01] MEDS: IBUPROFEN 800 MG TAB PO PRN (08:21)
--- NOTE | 2016-08-01 08:54 | P.PN ---
Progress Note - Text Interval history: The patient is found in the hallway she follows me to an interview room. She states that she slept 9 hours last night. Documentation suggests that she slept 4. She refused several medications yesterday but did comply with the prednisone and it appears the evening dose of Risperdal and Depakote. We discussed the importance of complying with all of her medications. She states she refused to get back at the mean nurses on the emulsion operator. She continues to demonstrate a tangential thought process and ongoing delusional thoughts. I did have the opportunity to speak with her son Param via phone yesterday. He confirms that the patient had no psychiatric symptoms prior to starting the steroids certainly no manic or psychotic symptoms. Mental status exam: The patient is an overweight Afro-Cambodian female appearing her stated age. Eye contact is appropriate speech is fluent spontaneous she is verbose. She reports her mood is "wonderful". She demonstrates tangential thinking loose associations. She continues to endorse persecutory thinking and grandiose thinking. Insight and judgment are poor. She demonstrates no verbal or physical aggressiveness today. She is dressed in her own clothing hygiene grooming are adequate. Affect is expressive she demonstrates a full range without tearfulness. Plan: The patient continues to experience symptoms of rabia and psychosis. She is encouraged to comply with her medications as written. We will consider titrating the Depakote further. Her CRP was within the normal range we were able to reduce the prednisone 10 mg daily as directed by her side panel hanger. We continue to closely involve family in the patient's treatment. The patient is not yet stable for discharge she is demonstrated little improvement so far. We will continue to monitor her for safety and encourage her participation in the milieu.
[2016-08-01] MEDS ORDERED: ERGOCALCIFEROL 50,000 UNIT CAP PO SCH (09:00)
[2016-08-01 12:55] LABS: Glucose,Whole Blood 164 mg/dL (75-99)
[2016-08-01] MEDS: GLIMEPIRIDE 1 MG TAB PO SCH (17:52)
[2016-08-01 17:54] LABS: Glucose,Whole Blood 161 mg/dL (75-99)
[2016-08-01] MEDS: DIVALPROEX ER 250 MG TAB.ER.24H PO SCH (21:18)
[2016-08-02] MEDS: LEVOTHYROXINE 50 MCG TAB PO SCH (05:34)
[2016-08-02 06:12] LABS: Glucose,Whole Blood 96 mg/dL (75-99)
[2016-08-02] MEDS: GLIMEPIRIDE 2 MG TAB PO SCH (08:27)
[2016-08-02] MEDS: INSULIN LISPRO (humaLOG) 300 UNIT/3 ML VIAL SQ SCH ×5 (08:28→20:07)
[2016-08-02] MEDS: metFORMIN 500 MG TAB PO SCH ×2 (08:29→20:04)
[2016-08-02] MEDS: amLODIPine 5 MG TAB PO SCH ×2 (09:09→20:06)
[2016-08-02] MEDS: predniSONE 10 MG TAB PO SCH (09:09)
[2016-08-02] MEDS: risperiDONE ODT 1 MG TAB PO SCH (09:09)
[2016-08-02] MEDS: LOSARTAN 50 MG TAB PO SCH (09:09)
--- NOTE | 2016-08-02 09:21 | P.PN ---
Progress Note - Text Interval history: The patient is found at the electrician front she follows me to an interview room. She states that she would like to write numerous checks to provide equipment for the mental health unit and the like me to write an order to approve that. She reports that she slept well last night however staff documented very little sleep last evening. She continues to spontaneously verbalize paranoid and persecutory thoughts as well as thoughts of grandiosity. We discussed drawing a CRP for Friday at the recommendation of her sewer and inspector. If the result is in the normal range we will continue the prednisone at 10 mg daily. The patient has no questions or concerns regarding her medication. Mental status exam: The patient is an overweight -Guyanese female. Eye contact is appropriate speech is fluent spontaneous she is verbose. She continues to have a disorganized thought process. She continues to feel persecuted by staff and continues to have several grandiose ideas and plans. She demonstrates no agitated behavior with me today. Insight and judgment are poor. She is noted to have lability of affect throughout the day. She is oriented to person place and date. She is dressed in her own clothing. Plan: The patient continues to exhibit symptoms of psychosis with elements of rabia. After numerous days be seen no improvement with utilization of Risperdal. Rather than titrate the dose further I will initiate Seroquel 50 mg at bedtime in conjunction with the Depakote ER. We will discontinue the Risperdal. We will of course consider titrating the Depakote further. We will monitor her for any sedation or hypotension. Vital signs reviewed. The patient requires continued psychiatric hospitalization due to her lack of improvement. We will draw the C-reactive protein on Friday. Dr. Kurtz will provide coverage over the weekend and I will resume her care on Friday.
[2016-08-02] MEDS: DIVALPROEX ER 250 MG TAB.ER.24H PO SCH ×2 (10:30→20:06)
[2016-08-02] MEDS: IBUPROFEN 800 MG TAB PO PRN (10:44)
[2016-08-02 12:44] LABS: Glucose,Whole Blood 165 mg/dL (75-99)
[2016-08-02 17:31] LABS: Glucose,Whole Blood 163 mg/dL (75-99)
[2016-08-02] MEDS: GLIMEPIRIDE 1 MG TAB PO SCH (17:43)
[2016-08-02 20:06] LABS: Glucose,Whole Blood 149 mg/dL (75-99)
[2016-08-02] MEDS: QUEtiapine 50 MG TAB PO SCH (20:06)
[2016-08-03] MEDS: LEVOTHYROXINE 50 MCG TAB PO SCH (06:08)
[2016-08-03] MEDS: IBUPROFEN 800 MG TAB PO PRN (06:08)
[2016-08-03] MEDS: ACETAMINOPHEN TAB 325 MG TAB PO PRN (06:09)
[2016-08-03 06:28] LABS: Glucose,Whole Blood 115 mg/dL (75-99)
[2016-08-03] MEDS: amLODIPine 5 MG TAB PO SCH ×2 (08:36→21:33)
[2016-08-03] MEDS: predniSONE 10 MG TAB PO SCH (08:36)
[2016-08-03] MEDS: DIVALPROEX ER 250 MG TAB.ER.24H PO SCH ×2 (08:36→21:33)
[2016-08-03] MEDS: INSULIN LISPRO (humaLOG) 300 UNIT/3 ML VIAL SQ SCH ×4 (08:36→21:34)
[2016-08-03] MEDS: GLIMEPIRIDE 2 MG TAB PO SCH (08:36)
[2016-08-03] MEDS: LOSARTAN 50 MG TAB PO SCH (08:36)
[2016-08-03] MEDS: metFORMIN 500 MG TAB PO SCH ×2 (08:37→21:34)
[2016-08-03 12:52] LABS: Glucose,Whole Blood 153 mg/dL (75-99)
--- NOTE | 2016-08-03 15:45 | P.PN ---
Progress Note - Text SUBJECTIVE: I reviewed the medical record and interviewed Ms. Jeffery. She has several complaints about her treatment on the unit unit. The primary of which was number times her requests have been denied by staff. However, she offered her blessings and prayers to the nursing staff. OBJECTIVE: She presented as a casually groomed elderly -Welsh female who walked with the aid of a wheeled walker. She was pleasant on approach and appeared to attend to the interview. She had no distinguishing features or prominent physical abnormalities. She had a bright facial expression. She was alert and oriented to person, place and time. She showed no abnormality of psychomotor activity. She had a slow and unsteady gait. Her speech was pressured, digressive and circumstantial. Her affect was euphoric. She denied suicidal ideation or wishes. She denied homicidal ideation. She denied feelings of hopelessness, helplessness or worthlessness. She denied ideas of reference and did not express paranoid ideation or delusional thoughts. She was religiously preoccupied. She denied hallucinations and did not appear to be responding to internal stimuli. ASSESSMENT: She continues to show signs and symptoms of hypomania. PLAN: Continued current treatment plan, encourage participation in therapeutic groups and activities as tolerated, evaluate clinical status and response to treatment daily basis.
[2016-08-03 17:37] LABS: Glucose,Whole Blood 166 mg/dL (75-99)
[2016-08-03] MEDS: GLIMEPIRIDE 1 MG TAB PO SCH (18:42)
[2016-08-03 20:19] LABS: Glucose,Whole Blood 146 mg/dL (75-99)
[2016-08-03] MEDS: QUEtiapine 50 MG TAB PO SCH (21:33)
[2016-08-04] MEDS: LEVOTHYROXINE 50 MCG TAB PO SCH (06:11)
[2016-08-04] MEDS: INSULIN LISPRO (humaLOG) 300 UNIT/3 ML VIAL SQ SCH ×4 (08:51→22:21)
[2016-08-04] MEDS: GLIMEPIRIDE 2 MG TAB PO SCH (08:51)
[2016-08-04] MEDS: amLODIPine 5 MG TAB PO SCH ×2 (09:52→22:21)
[2016-08-04] MEDS: LOSARTAN 50 MG TAB PO SCH (09:52)
[2016-08-04] MEDS: predniSONE 10 MG TAB PO SCH (09:52)
[2016-08-04] MEDS: metFORMIN 500 MG TAB PO SCH ×2 (09:55→22:21)
[2016-08-04] MEDS: DIVALPROEX ER 250 MG TAB.ER.24H PO SCH ×2 (09:57→22:21)
[2016-08-04 12:46] LABS: Glucose,Whole Blood 117 mg/dL (75-99)
--- NOTE | 2016-08-04 14:18 | P.PN ---
Progress Note - Text SUBJECTIVE: Mrs. Jeffery was restless and intrusive. She approached me several times during the day with various complaints. She alleged that nursing staff owes her $1 million because she is charging us $100,000 every time we denied a request. She asked me to call [employer] and order her a set of new clothing. She also requested that I allow her family to come into unit and visit for 12 hours. She was angry when I told her that we could not allow that length of visit. OBJECTIVE: She presented as a casually dressed dressed moderately obese 70- year-old -Slovenian female who is mostly pleasant on approach. She maintained eye contact and appeared to attend to the interview. She had a bright facial expression. She was alert and oriented to person, place and time. She was restless and paced the unit. Her speech was spontaneous. She demonstrated pressured speech and flight of ideas. She denied suicidal ideation or wishes. She did not expressed depressive cognitions including helplessness, hopelessness or worthlessness. Quite the opposite she has inflated self-esteem. She did not express ideas of reference. She did not overtly express paranoid ideation but suggested a conspiracy against her by nursing staff. Her thinking was concrete but his associations were coherent. She perseverated on several grandiose themes. She denied hallucinations and did not appear to be responding to internal stimuli. She slept 2 hours last night. She did not require when necessary medication over the last 24 hours. ASSESSMENT: She continues to demonstrate signs and symptoms of rabia. She remains on prednisone 10 mg daily for the treatment of a temporal arthritis. PLAN: Increase Seroquel to 100 mg at bedtime and Depakote ER to 500 mg twice a day, 10 units 15 minute checks. Encourage the result of a walker when ambulating. Encouraged continued participation in therapeutic groups and activities. Dr. Hernandes to resume care on 08/05/2016.
[2016-08-04] MEDS: GLIMEPIRIDE 1 MG TAB PO SCH (18:00)
[2016-08-04] MEDS: IBUPROFEN 800 MG TAB PO PRN (18:22)
[2016-08-04] MEDS ORDERED: QUEtiapine 50 MG TAB PO SCH (21:00)
[2016-08-04 22:32] LABS: Glucose,Whole Blood 192 mg/dL (75-99)
[2016-08-05] MEDS: IBUPROFEN 800 MG TAB PO PRN (04:25)
[2016-08-05] MEDS: ACETAMINOPHEN TAB 325 MG TAB PO PRN (04:32)
[2016-08-05 06:04] LABS: Glucose,Whole Blood 146 mg/dL (75-99)
[2016-08-05] MEDS: LEVOTHYROXINE 50 MCG TAB PO SCH (06:33)
[2016-08-05] MEDS: GLIMEPIRIDE 2 MG TAB PO SCH (08:01)
[2016-08-05] MEDS: INSULIN LISPRO (humaLOG) 300 UNIT/3 ML VIAL SQ SCH ×4 (08:02→20:28)
--- NOTE | 2016-08-05 08:34 | P.PN ---
Progress Note - Text Interval history: The patient is found in the hallway she follows me to an interview room. She reports that the staff continues to deny her things. She reports that she would like to pay for overtime here on the unit she would also like to repair the heating equipment. She states that she would like to be discharged and would like her family to visit more often. Notes from the weekend were reviewed. Her Depakote ER and Seroquel were increased. She states that she will continue to follow complaints as long as she sees injustices. The patient is documented to have slept only 3 hours last evening. Mental status exam: The patient is an overweight -Libyan female dressed in her own clothing. Eye contact is appropriate. Speech is fluent spontaneous verbose mildly pressured at times. She describes her mood as being "wonderful and fantastic". Affect was more constricted during this session. She continues to experience grandiose and persecutory thoughts. She is endorsing no hallucinations. She does again reference her yarsanism beliefs numerous times throughout the session. Insight and judgment are impaired. She demonstrates no verbal or physical aggressiveness during this session. Thought process is often circumstantial and can be tangential still. [facility] and year. No observed EPS. Plan: The patient will continue on the Depakote ER which was increased over the weekend. We will draw a Depakote level after enough days have passed to reach steady state. I will increase the Seroquel 250 g at bedtime as she continues to insufficiently sleep at night. The patient requires continued inpatient psychiatric hospitalization. A CRP will be drawn and we will review that results to see if we are able to maintain the 10 mg of prednisone. Vital signs reviewed. She is instructed to continue using her wheeled walker if needed.
[2016-08-05] MEDS: DIVALPROEX ER 250 MG TAB.ER.24H PO SCH ×2 (10:29→20:29)
[2016-08-05] MEDS: amLODIPine 5 MG TAB PO SCH ×2 (10:29→20:29)
[2016-08-05] MEDS: metFORMIN 500 MG TAB PO SCH ×2 (10:30→20:32)
[2016-08-05] MEDS: LOSARTAN 50 MG TAB PO SCH (10:30)
[2016-08-05] MEDS: predniSONE 10 MG TAB PO SCH (10:30)
--- NOTE | 2016-08-05 14:20 | P.PN ---
Progress Note - Text 08/05: We have been asked to reassess patient as she has been refusing her diabetic medications. Her blood sugars are running 117-192. Patient states that she is taking all her other medications that she does not want to take her diabetic medications. Described in detail the need for her to do this as she is currently on prednisone for her temporal arteritis. Despite this, patient continues to refuse. Nursing staff updated.
[2016-08-05 17:14] LABS: Glucose,Whole Blood 137 mg/dL (75-99)
[2016-08-05] MEDS: GLIMEPIRIDE 1 MG TAB PO SCH (17:43)
[2016-08-05] MEDS: QUEtiapine 50 MG TAB PO SCH (20:29)
[2016-08-06 05:34] LABS: Glucose,Whole Blood 96 mg/dL (75-99)
[2016-08-06] MEDS: LEVOTHYROXINE 50 MCG TAB PO SCH (05:45)
[2016-08-06] MEDS: LOSARTAN 50 MG TAB PO SCH (09:52)
[2016-08-06] MEDS: amLODIPine 5 MG TAB PO SCH ×2 (09:52→22:14)
[2016-08-06] MEDS: INSULIN LISPRO (humaLOG) 300 UNIT/3 ML VIAL SQ SCH ×4 (09:52→23:23)
[2016-08-06] MEDS: GLIMEPIRIDE 2 MG TAB PO SCH (09:52)
[2016-08-06] MEDS: DIVALPROEX ER 250 MG TAB.ER.24H PO SCH ×2 (09:53→22:14)
[2016-08-06] MEDS: metFORMIN 500 MG TAB PO SCH ×2 (09:53→22:14)
[2016-08-06] MEDS: predniSONE 10 MG TAB PO SCH (09:53)
--- NOTE | 2016-08-06 10:09 | P.PN ---
Progress Note - Text Interval history: The patient is found in the hallway she follows me to an interview room. She states that she slept 6 hours last night staff have documented 3. She reports that the Seroquel helped her fall asleep quickly. She continues to spontaneously verbalize grandiose thoughts and persecutory concerns. She states that she is building a $1.5 million home in [place] and is buying another one in [place]. She states that people here don't like her and no one will help her. She plans on leaving today and states there is nothing we can do to stop her. Her CRP came back at 9 which is elevated from last measurement but within normal range. We will recheck in several days. I did have a phone conversation with the patient's daughter, Loren, to discuss the patient's current status medications and goals prior to discharge. Mental status exam: The patient is an overweight -Guamanian female ambulating with a walker. She is dressed in her own clothing. Eye contact is appropriate speech is spontaneous fluent mildly pressured. She is reporting no thoughts of harming herself or others. She makes numerous hindu references during our brief session. She continues to have a delusional thought content that is impacting her ability to function. She will still have demonstrations of irritability and labile affect. She demonstrates no verbal or physical aggressiveness. Insight and judgment is impaired. Plan: The patient will continue on her current medications we will plan to get a Depakote level later in the week. Recheck the CRP later in the week. We will continue Seroquel as written. Vital signs are reviewed. She requires continued hospitalization for acute safety reasons. She does have a court hearing scheduled for this Friday. I discussed with family that as soon as her symptoms improve and they feel that they can manage her at home we will begin planning for discharge.
[2016-08-06 13:08] LABS: Glucose,Whole Blood 159 mg/dL (75-99)
[2016-08-06] MEDS: GLIMEPIRIDE 1 MG TAB PO SCH (17:23)
[2016-08-06 20:08] LABS: Glucose,Whole Blood 236 mg/dL (75-99)
[2016-08-06] MEDS: QUEtiapine 50 MG TAB PO SCH (22:15)
[2016-08-07] MEDS: MAGNESIUM HYDROXIDE 2,400 MG/10 ML CUP PO PRN (02:30)
[2016-08-07] MEDS: IBUPROFEN 800 MG TAB PO PRN (02:30)
[2016-08-07] MEDS: ACETAMINOPHEN TAB 325 MG TAB PO PRN (02:31)
[2016-08-07 06:08] LABS: Glucose,Whole Blood 122 mg/dL (75-99)
[2016-08-07] MEDS: LEVOTHYROXINE 50 MCG TAB PO SCH (06:22)
[2016-08-07] MEDS: INSULIN LISPRO (humaLOG) 300 UNIT/3 ML VIAL SQ SCH ×4 (08:02→20:06)
[2016-08-07] MEDS: LOSARTAN 50 MG TAB PO SCH (10:32)
[2016-08-07] MEDS: amLODIPine 5 MG TAB PO SCH ×2 (10:32→20:07)
[2016-08-07] MEDS: predniSONE 10 MG TAB PO SCH (10:32)
[2016-08-07] MEDS: GLIMEPIRIDE 2 MG TAB PO SCH (10:32)
[2016-08-07] MEDS: metFORMIN 500 MG TAB PO SCH ×2 (10:33→20:07)
[2016-08-07] MEDS: DIVALPROEX ER 250 MG TAB.ER.24H PO SCH ×2 (10:34→20:06)
--- NOTE | 2016-08-07 10:52 | P.PN ---
Progress Note - Text Interval history: The patient is found in the hallway she follows me to an interview room. She reports that she sleeping more than staff are recording. She continues to feel that she's been underfed during the overnight hours. Again we have consulted dietary further recommendations. 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 The patient states that she does not feel that she is grandiose and is preparing for her court hearing Friday. She appreciates our session today by leaving the office. She has complied with the Depakote but refused the Seroquel in the evening last night. She states she does not want to comply with that dose but is more agreeable to a decreased dose. Mental status exam: The patient is an overweight -South Sudanese female appearing her stated age. She has a wheeled walker accessible but is not using it this morning. She reports her mood is okay she finds herself frustrated with the structure here on the mental health unit. She reports no suicidal or homicidal ideation. She does continue to have grandiose thoughts with some paranoid thinking. Her behavior is more controlled there is less impulsivity. She does not raise her voice she demonstrates no verbal or physical aggressiveness. Insight and judgment remains impaired. The patient is ambulating without ataxia at time she chooses to utilize the wheeled walker. Plan: The patient will continue on her current medications. I will reduce the Seroquel to 100 mg at bedtime to improve her compliance. We will draw a Depakote level and another CRP tomorrow. Vital signs reviewed. We will continue to monitor her for safety. She has a court hearing scheduled for Friday 9 AM. We are hoping to see continued clinical improvement so that we are able to facilitate a discharge by the end of the week and she has a very supportive family.
[2016-08-07 12:46] LABS: Glucose,Whole Blood 143 mg/dL (75-99)
[2016-08-07] MEDS ORDERED: cloNIDine HCL 0.1 MG TAB PO PRN (13:41)
[2016-08-07] MEDS: GLIMEPIRIDE 1 MG TAB PO SCH (17:20)
[2016-08-07 20:04] LABS: Glucose,Whole Blood 203 mg/dL (75-99)
[2016-08-07] MEDS: QUEtiapine 100 MG TAB PO SCH (20:07)
[2016-08-08 05:31] LABS: Glucose,Whole Blood 149 mg/dL (75-99)
[2016-08-08] MEDS: LEVOTHYROXINE 50 MCG TAB PO SCH (05:31)
[2016-08-08] MEDS: IBUPROFEN 800 MG TAB PO PRN (06:47)
[2016-08-08] MEDS: ACETAMINOPHEN TAB 325 MG TAB PO PRN (06:48)
[2016-08-08] MEDS: INSULIN LISPRO (humaLOG) 300 UNIT/3 ML VIAL SQ SCH ×4 (07:30→19:55)
[2016-08-08] MEDS: GLIMEPIRIDE 2 MG TAB PO SCH (07:30)
--- NOTE | 2016-08-08 09:40 | P.PN ---
Progress Note - Text Interval history: The patient is found at the front desk person she follows me to an interview room. She reports that she slept 8 hours last evening and nursing confirms. She states she feels great mood is improved. She continues to be bothered by rules here on the mental health unit and continues to express some grandiose thinking. Behavior again appears to be improving there has been no yelling no agitation no impulsive behavior. She has been redirectable. Mental status exam: The patient is an overweight -Senegalese female appearing her stated age. She is ambulating without ataxia. She intermittently uses her walker. She endorses her mood as being "good". Affect is congruent. She reports no suicidal or homicidal ideation intent or plan. She continues to have some delusional thought content. Thought process is more linear. She demonstrates no agitation and her affect is more consistent. Insight and judgment slowly improving. There is no verbal or physical aggressiveness. She is oriented. Plan: We are awaiting the Depakote level and most recent CRP. We are seeing some clinical improvement we will consider discharge in the next few days if she continues to demonstrate stability with further clinical improvement. Social work will confer with family to see if they feels she is manageable at home. We will continue to monitor for safety. Vital signs are reviewed.
[2016-08-08] MEDS: predniSONE 10 MG TAB PO SCH (09:54)
[2016-08-08] MEDS: metFORMIN 500 MG TAB PO SCH ×2 (09:54→20:42)
[2016-08-08] MEDS: amLODIPine 5 MG TAB PO SCH ×2 (09:54→20:42)
[2016-08-08] MEDS: DIVALPROEX ER 250 MG TAB.ER.24H PO SCH ×2 (09:54→20:42)
[2016-08-08] MEDS: LOSARTAN 50 MG TAB PO SCH (09:54)
[2016-08-08 11:31] LABS: ALT 52 U/L (9-52); AST 27 U/L (14-36); C Reactive Protein <5.0 mg/L (<10.0)
[2016-08-08 12:47] LABS: Glucose,Whole Blood 214 mg/dL (75-99)
--- NOTE | 2016-08-08 17:42 | XR ---
EXAMINATION TYPE: XR lumbar spine 3V DATE OF EXAM: 08/08/2016 5:20 PM COMPARISON: NONE HISTORY: Pain after injury TECHNIQUE: 3 views FINDINGS: The bones and joints and soft tissues are negative for acute findings. Degenerative facet c hanges are noted in the mid and lower lumbar spine, [id number] in degree. IMPRESSION: NO ACUTE PROCESS.
[2016-08-08] MEDS: GLIMEPIRIDE 1 MG TAB PO SCH (17:53)
[2016-08-08 19:52] LABS: Glucose,Whole Blood 279 mg/dL (75-99)
--- NOTE | 2016-08-08 20:14 | XR ---
EXAMINATION TYPE: XR Hip Complete RT DATE OF EXAM: 08/08/2016 6:24 PM COMPARISON: NONE HISTORY: Pain following trauma TECHNIQUE: 2 views FINDINGS: The bones and joints and soft tissues are negative. IMPRESSION: Negative for fracture or malalignment.
[2016-08-08] MEDS: QUEtiapine 100 MG TAB PO SCH (20:42)
[2016-08-09 05:16] LABS: Glucose,Whole Blood 121 mg/dL (75-99)
[2016-08-09 05:21] VITALS: BP 174/89; PULSE 89; RESP 16; TEMP 98.4
[2016-08-09] MEDS: LEVOTHYROXINE 50 MCG TAB PO SCH (05:33)
[2016-08-09] MEDS: GLIMEPIRIDE 2 MG TAB PO SCH (10:32)
[2016-08-09] MEDS: LOSARTAN 50 MG TAB PO SCH (10:33)
[2016-08-09] MEDS: amLODIPine 5 MG TAB PO SCH (10:33)
[2016-08-09] MEDS: INSULIN LISPRO (humaLOG) 300 UNIT/3 ML VIAL SQ SCH ×2 (10:33→12:40)
[2016-08-09] MEDS: DIVALPROEX ER 250 MG TAB.ER.24H PO SCH (10:35)
[2016-08-09] MEDS: predniSONE 10 MG TAB PO SCH (10:36)
[2016-08-09] MEDS: metFORMIN 500 MG TAB PO SCH (10:36)
--- NOTE | 2016-08-09 10:52 | P.DS ---
Providers Date of admission: 07/27/16 02:27 Expected date of discharge: 08/09/16 Attending physician: Marcos Rinaldi Consults: 07/27/16 02:59 Consult Physician Routine Consulting Provider: Evelin Marcus Consult Reason/Comments: H & P and medical follow up Do you want consulting provider notified?: Yes, Notify in am Primary care physician: Cong Johnston - Discharge Diagnosis(es) (1) Unspecified psychosis Current Visit: Yes Status: Acute Priority: High Hospital Course: Brief summary admission note: This patient is a 70-year-old female who was admitted to the mental health unit through the emergency room for acute symptoms of psychosis and rabia. The patient presented with a petition completed by her daughter noting that the patient was confused she demonstrated impulsive behavior and combativeness. The patient had presented also with grandiose ideas and paranoid thinking. She does have a documented temporal arteritis and is being treated with steroids since May. Her family feels that the psychiatric symptoms are iatrogenic and due to the steroids that are medically necessary. For full details please refer to my psychiatric evaluation dated 07/27/2016. Summary of hospital course: The patient was admitted to the mental health unit in voluntarily. I did complete a second clinical certificate to pursue court ordered treatment. A full court hearing was held today. The patient's was originally started on Risperdal for her symptoms of psychosis and that medication was titrated. Unfortunately no benefit was perceived and she was placed on Seroquel in addition we utilize Depakote ER for mood stabilization. Over this last week the patient has demonstrated an improved ability to sleep and she has exercised more control over her behavior. She has not been demonstrating any agitated behavior or aggressiveness and has not been using profanity. She does continue to have some grandiose thinking with some mild paranoid thinking but that has significantly improved. She was seen for a routine medical consultation. I did speak with her rotary pump operator at the [facility], Dr. Blankenship. We discussed a procedure of checking her CRP and lowering the prednisone to 10 mg daily if the CRP result was acceptable. We were able to do that and have checked the CRP twice since then and has remained under 10. The last 2 readings were 9 and most recently 5. Her Depakote level drawn yesterday was 75.4 her liver enzymes were within normal limits. The patient's family has been closely involved in the patient's care. They have been visiting daily and social work has spoken to them several times during the hospitalization. Her family feels that they are able to manage her now in an outpatient setting and with close family support. Mental status exam: The patient is an overweight -Nicaraguan female appearing her stated age. She is ambulating with a walker today. She is dressed in her own clothing hygiene's adequate. Eye contact is good speech is fluent and spontaneous nonpressured. Her thought process is more linear. She demonstrates no aggressive behavior there is no aggressive speech. She reports no suicidal or homicidal ideation intent or plan. Affect is becoming more appropriately expressive. She does continue to have some grandiose thinking with some mild paranoid thoughts but these have significantly improved. She is alert and oriented to person place and date. Symptoms of rabia are much improved. Impressions 1. Psychosis unspecified rule out symptoms of psychosis and rabia secondary to use of steroids, rule out remote history of depression 2. Coronary artery disease, diabetes, hyperthyroidism, temporal arteritis 3. Psychosocial dysfunction secondary to recent symptoms of psychosis and rabia Plan: The patient will be discharged from the mental health unit today to return home with close family support. She will continue on Seroquel 100 mg at bedtime and Depakote ER 500 mg twice daily. Social work will arrange outpatient mental health follow-up. The patient will continue following with her primary care physician as needed and with her rotary pump operator at the [facility]. She will continue on prednisone 10 mg daily. There is no imminent safety risk she is appropriate for continued outpatient care. I have asked the court order a combined inpatient outpatient 90 day treatment order. The patient is instructed to return to the hospital with any acute safety concerns. Patient Condition at Discharge: Stable Plan - Discharge Summary New Discharge Prescriptions: Divalproex ER [Depakote ER] 500 mg PO BID #120 tab.er.24h QUEtiapine [SEROquel] 100 mg PO HS #30 tab predniSONE 10 mg PO DAILY #30 tab Discharge Medication List Glimepiride [Amaryl] 2 mg PO AC-BID 05/14/16 [History] Levothyroxine Sodium [Synthroid] 50 mcg PO DAILY 05/14/16 [History] Losartan Potassium 100 mg PO DAILY 05/14/16 [History] amLODIPine [Norvasc] 5 mg PO BID 05/14/16 [History] metFORMIN HCL [Glucophage] 1,000 mg PO BID 05/14/16 [History] Ergocalciferol [Vitamin D2 (DRISDOL)] 50,000 unit PO Q14D 07/26/16 [History] Insulin Aspart [NovoLOG] See Protocol SQ AC-TID 07/26/16 [History] Ibuprofen [Motrin] 800 mg PO Q8HR PRN 07/27/16 [History] Divalproex ER [Depakote ER] 500 mg PO BID #120 tab.er.24h 08/09/16 [Rx] QUEtiapine [SEROquel] 100 mg PO HS #30 tab 08/09/16 [Rx] predniSONE 10 mg PO DAILY #30 tab 08/09/16 [Rx] Follow up Appointment(s)/Referral(s): [facility] [Outside] - 1 Week (FridayAugust 12 at 11:00 with Javier) Cong Johnston MD [Primary Care Provider] - 1-2 days
== END 2016-08-09 13:53 | disposition home or self-care (01) | DRG 885 ==
LOC: EC 14:30 → 3MHU 07-27 02:27
PROVIDERS: ADMIT Psychiatry & Neurology Psychiatry; ATTEND Psychiatry & Neurology Psychiatry
DX: F29 Unspecified psychosis not due to a substance or known physiological condition (principal); F03.90 Unspecified dementia, unspecified severity, without behavioral disturbance, psychotic disturbance, mood disturbance, and anxiety; R45.851 Suicidal ideations; M31.6 Other giant cell arteritis; E03.9 Hypothyroidism, unspecified; E66.3 Overweight; E78.5 Hyperlipidemia, unspecified; I10 Essential (primary) hypertension; I25.10 Atherosclerotic heart disease of native coronary artery without angina pectoris; M19.90 Unspecified osteoarthritis, unspecified site; Z79.52 Long term (current) use of systemic steroids; Z79.899 Other long term (current) drug therapy; Z79.84 Long term (current) use of oral hypoglycemic drugs; Z79.1 Long term (current) use of non-steroidal anti-inflammatories (NSAID); Z79.4 Long term (current) use of insulin; T38.0X5A Adverse effect of glucocorticoids and synthetic analogues, initial encounter
CPT/HCPCS: 36415; 72100; 73502; 80048; 80164; 80306; 80320; 81003; 82075; 83036; 83520; 84443; 84450; 84460; 85025; 86140; 93005; 99285

== ENCOUNTER 2016-12-07 15:14 | Inpatient (IN) | payer MEDICARE ==
--- NOTE | 2016-12-07 15:37 | ED ---
General Adult HPI - General Chief complaint: Weakness Stated complaint: WEAKNESS Time Seen by Provider: 12/07/16 15:20 Source: patient, EMS, RN notes reviewed Mode of arrival: EMS Limitations: no limitations - History of Present Illness Initial comments: Patient is a pleasant 71-year-old female presenting to emergency Department complaining of weakness. 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 Following this patient did have an episode where she was admitted to [facility]. Patient has had intermittent weakness over the past month. Symptoms worsened last night and worsened this morning. Patient is unable to walk more than one or 2 steps at this time. Patient feels weak all over. Majority of weakness appears to be in the legs. No isolated area of weakness. No confusion. No speech problems. No headache. - Related Data Home Medications Medication Instructions Recorded Confirmed Glimepiride [Amaryl] 2 mg PO AC-BID 05/14/16 07/27/16 Levothyroxine Sodium [Synthroid] 50 mcg PO DAILY 05/14/16 07/26/16 Losartan Potassium 100 mg PO DAILY 05/14/16 07/26/16 amLODIPine [Norvasc] 5 mg PO BID 05/14/16 07/26/16 metFORMIN HCL [Glucophage] 1,000 mg PO BID 05/14/16 07/26/16 Ergocalciferol [Vitamin D2 50,000 unit PO Q14D 07/26/16 07/27/16 (DRISDOL)] Ibuprofen [Motrin] 800 mg PO Q8HR PRN 07/27/16 07/27/16 Previous Rx's Medication Instructions Recorded Divalproex ER [Depakote ER] 500 mg PO BID #120 tab.er.24h 08/09/16 QUEtiapine [SEROquel] 100 mg PO HS #30 tab 08/09/16 predniSONE 10 mg PO DAILY #30 tab 08/09/16 Allergies Allergy/AdvReac Type Severity Reaction Status Date / Time codeine AdvReac Nausea & Verified 12/07/16 15:27 Vomiting Review of Systems ROS Statement: Those systems with pertinent positive or pertinent negative responses have been documented in the HPI. ROS Other: All systems not noted in ROS Statement are negative. Constitutional: Denies: fever Eyes: Denies: eye pain ENT: Denies: ear pain Respiratory: Denies: cough Cardiovascular: Denies: chest pain Endocrine: Reports: fatigue Gastrointestinal: Denies: abdominal pain Genitourinary: Denies: dysuria Musculoskeletal: Denies: back pain Skin: Denies: rash Neurological: Reports: weakness. Denies: headache, paresthesias, confusion Past Medical History Past Medical History: Coronary Artery Disease (CAD), Dementia, Diabetes Mellitus , Hyperlipidemia, Hypertension, Osteoarthritis (OA), Thyroid Disorder History of Any Multi-Drug Resistant Organisms: None Reported Additional Past Surgical History / Comment(s): carotid gland surgery Past Psychological History: No Psychological Hx Reported Additional Psychological History / Comment(s): Dementia Smoking Status: Never smoker Past Alcohol Use History: None Reported Past Drug Use History: None Reported General Exam Limitations: no limitations General appearance: alert, in no apparent distress Head exam: Present: atraumatic Eye exam: Present: normal appearance, PERRL, EOMI. Absent: nystagmus ENT exam: Present: normal oropharynx Neck exam: Present: normal inspection Respiratory exam: Present: normal lung sounds bilaterally Cardiovascular Exam: Present: regular rate, normal rhythm GI/Abdominal exam: Present: soft. Absent: tenderness Extremities exam: Present: normal inspection. Absent: pedal edema, calf tenderness Neurological exam: Present: alert, oriented X3, CN II-XII intact Expanded Patient oriented to: Present: person, place, time Speech: Present: fluid speech Cranial nerves: EOM's Intact: Normal, Facial Sensation: Normal Sensory exam: Upper Extremity Light Touch: Normal, Lower Extremity Light Touch: Normal Motor strength exam: RUE: 5, LUE: 5, RLE: 2/1, LLE: 2/1 Eye Response: (4) open spontaneously Motor Response: (6) obeys commands Verbal Response: (5) oriented Psychiatric exam: Present: flat affect Skin exam: Present: normal color Course Vital Signs 12/07/16 12/07/16 12/07/16 15:16 15:52 17:24 Temperature 97.8 F Pulse Rate 72 75 75 Respiratory 18 Rate Blood Pressure 163/76 180/80 210/95 O2 Sat by Pulse 98 Oximetry - Reevaluation(s) Reevaluation #1: 12/07/16 17:14 Case was discussed in detail with Dr. Johnston who does want lumbar puncture done and neurology consult. He does not feel patient will benefit from steroids secondary to severe psychosis associated recently. He questions if patient could benefit from IgG however will defer this to neurology. Dr. Mcdaniels has been paged. 12/07/16 17:54 Dr. Mcdaniels patient again EKG Findings - EKG Comments: EKG Findings:: Normal sinus rhythm 72. [place] 186. QRS 88. QT 388. QTC 424. Left axis. LVH with nonspecific T waves. Procedures - Lumbar Puncture Consent Obtained: verbal consent, written consent Time Out Performed: Yes Indication for Procedure: other (Weakness) Patient Position: sitting upright/leaning forward Skin Prep: Povidone-Iodine 1% Local Anesthetic Used: Lidocaine 1% Interspace Used: L4-L5 Complications: none Patient Tolerated Procedure: well Additional Comments: Despite 3 attempts unable to obtain cerebral spinal fluid. Medical Decision Making - Lab Data Result diagrams: 12/07/16 15:40 12/07/16 15:40 Lab Results 12/07/16 12/07/16 12/07/16 Range/Units 15:40 15:40 15:40 WBC 6.7 (3.8-10.6) k/uL RBC 4.09 (3.80-5.40) m/uL Hgb 11.2 L (11.4-16.0) gm/dL Hct 35.5 (34.0-46.0) % MCV 86.7 (80.0-100.0) fL MCH 27.3 (25.0-35.0) pg MCHC 31.5 (31.0-37.0) g/dL RDW 13.8 (11.5-15.5) % Plt Count 201 (150-450) k/uL Neutrophils % 63 % Lymphocytes % 27 % Monocytes % 6 % Eosinophils % 1 % Basophils % 1 % Neutrophils # 4.2 (1.3-7.7) k/uL Lymphocytes # 1.8 (1.0-4.8) k/uL Monocytes # 0.4 (0-1.0) k/uL Eosinophils # 0.1 (0-0.7) k/uL Basophils # 0.0 (0-0.2) k/uL Hypochromasia Slight PT (9.0-12.0) sec INR (<1.1) APTT (22.0-30.0) sec Sodium 145 (137-145) mmol/L Potassium 3.6 (3.5-5.1) mmol/L Chloride 106 (98-107) mmol/L Carbon Dioxide 25 (22-30) mmol/L Anion Gap 14 mmol/L BUN 21 H (7-17) mg/dL Creatinine 1.08 H (0.52-1.04) mg/dL Est GFR (MDRD) Af Amer >60 (>60 ml/min/1.73 sqM) Est GFR (MDRD) Non-Af 50 (>60 ml/min/1.73 sqM) Glucose 112 H (74-99) mg/dL Calcium 9.1 (8.4-10.2) mg/dL Phosphorus 3.5 (2.5-4.5) mg/dL Magnesium 2.0 (1.6-2.3) mg/dL Total Bilirubin 0.4 (0.2-1.3) mg/dL AST 28 (14-36) U/L ALT 29 (9-52) U/L Alkaline Phosphatase 54 (38-126) U/L Total Creatine Kinase 123 (30-135) U/L CK-MB (CK-2) 0.8 (0.0-2.4) ng/mL CK-MB (CK-2) Rel Index 0.7 Troponin I <0.012 (0.000-0.034) ng/mL Total Protein 7.4 (6.3-8.2) g/dL Albumin 4.1 (3.5-5.0) g/dL TSH 2.410 (0.465-4.680) mIU/L Free T4 1.22 (0.78-2.19) ng/dL Free T3 pg/mL 3.1 (2.8-5.3) pg/ml Urine Color Urine Appearance (Clear) Urine pH (5.0-8.0) Ur Specific [place] (1.001-1.035) Urine Protein (Negative) Urine Glucose (UA) (Negative) Urine Ketones (Negative) Urine Blood (Negative) Urine Nitrite (Negative) Urine Bilirubin (Negative) Urine Urobilinogen (<2.0) mg/dL Ur Leukocyte Esterase (Negative) 12/07/16 12/07/16 Range/Units 15:40 15:51 WBC (3.8-10.6) k/uL RBC (3.80-5.40) m/uL Hgb (11.4-16.0) gm/dL Hct (34.0-46.0) % MCV (80.0-100.0) fL MCH (25.0-35.0) pg MCHC (31.0-37.0) g/dL RDW (11.5-15.5) % Plt Count (150-450) k/uL Neutrophils % % Lymphocytes % % Monocytes % % Eosinophils % % Basophils % % Neutrophils # (1.3-7.7) k/uL Lymphocytes # (1.0-4.8) k/uL Monocytes # (0-1.0) k/uL Eosinophils # (0-0.7) k/uL Basophils # (0-0.2) k/uL Hypochromasia PT 10.2 (9.0-12.0) sec INR 1.0 (<1.1) APTT 22.8 (22.0-30.0) sec Sodium (137-145) mmol/L Potassium (3.5-5.1) mmol/L Chloride (98-107) mmol/L Carbon Dioxide (22-30) mmol/L Anion Gap mmol/L BUN (7-17) mg/dL Creatinine (0.52-1.04) mg/dL Est GFR (MDRD) Af Amer (>60 ml/min/1.73 sqM) Est GFR (MDRD) Non-Af (>60 ml/min/1.73 sqM) Glucose (74-99) mg/dL Calcium (8.4-10.2) mg/dL Phosphorus (2.5-4.5) mg/dL Magnesium (1.6-2.3) mg/dL Total Bilirubin (0.2-1.3) mg/dL AST (14-36) U/L ALT (9-52) U/L Alkaline Phosphatase (38-126) U/L Total Creatine Kinase (30-135) U/L CK-MB (CK-2) (0.0-2.4) ng/mL CK-MB (CK-2) Rel Index Troponin I (0.000-0.034) ng/mL Total Protein (6.3-8.2) g/dL Albumin (3.5-5.0) g/dL TSH (0.465-4.680) mIU/L Free T4 (0.78-2.19) ng/dL Free T3 pg/mL (2.8-5.3) pg/ml Urine Color Yellow Urine Appearance Clear (Clear) Urine pH 5.5 (5.0-8.0) Ur Specific [place] 1.015 (1.001-1.035) Urine Protein Trace H (Negative) Urine Glucose (UA) Negative (Negative) Urine Ketones 1+ H (Negative) Urine Blood Negative (Negative) Urine Nitrite Negative (Negative) Urine Bilirubin Negative (Negative) Urine Urobilinogen <2.0 (<2.0) mg/dL Ur Leukocyte Esterase Negative (Negative) - Radiology Data Radiology results: report reviewed (Computed tomography scan of the brain reveals no acute intercranial hemorrhage.), image reviewed (Chest x-ray shows no acute process) Disposition Clinical Impression: Leg weakness Disposition: ADMITTED IP TO THIS HOSP Referrals: Evelin Marcus MD [Primary Care Provider] - 1-2 days Time of Disposition: 17:55
[2016-12-07 15:58] LABS: Basophils % (A) 1 %; CHCM 31.3; Eosinophils # (A) 0.1 k/uL (0-0.7); Eosinophils % (A) 1 %; HCT 35.5 % (34.0-46.0); HGB 11.2 gm/dL (11.4-16.0); Hypochromasia Slight; Luc # (Auto) 0.19; Luc % (Auto) 3; Lymphocytes # (A) 1.8 k/uL (1.0-4.8); Lymphocytes % (A) 27 %; MCH 27.3 pg (25.0-35.0); MCHC 31.5 g/dL (31.0-37.0); MCV 86.7 fL (80.0-100.0); Mean Platelet Volume 7.5; Monocytes # (A) 0.4 k/uL (0-1.0); Monocytes % (A) 6 %; Neutrophils # (A) 4.2 k/uL (1.3-7.7); Neutrophils % (A) 63 %; RBC 4.09 m/uL (3.80-5.40); RDW 13.8 % (11.5-15.5); WBC 6.7 k/uL (3.8-10.6); WBC (Perox) 7.48
[2016-12-07 15:58] LABS: Appearance,Urine Clear (Clear); Bilirubin,Urine Negative (Negative); Glucose,Urine (UA) Negative (Negative); Ketones,Urine 1+ (Negative); Leukocyte Esterase,Urine Negative (Negative); Nitrite,Urine Negative (Negative); PH, Urine 5.5 (5.0-8.0); Protein,Urine Trace (Negative); Specific Gravity,Urine 1.015 (1.001-1.035); UA Billing (MACRO vs. MICRO) CHEM; Urobilinogen,Urine <2.0 mg/dL (<2.0)
[2016-12-07 16:06] LABS: ALT 29 U/L (9-52); AST 28 U/L (14-36); Alkaline Phosphatase 54 U/L (38-126); Anion Gap 14 mmol/L; Blood Urea Nitrogen 21 mg/dL (7-17); Calcium 9.1 mg/dL (8.4-10.2); Carbon Dioxide 25 mmol/L (22-30); Chloride 106 mmol/L (98-107); Glucose 112 mg/dL (74-99); Non-African American GFR(MDRD) 50 (>60 ml/min/1.73 sqM); Phosphorous 3.5 mg/dL (2.5-4.5); Potassium 3.6 mmol/L (3.5-5.1); Sodium 145 mmol/L (137-145); Total Bilirubin 0.4 mg/dL (0.2-1.3); Total Protein 7.4 g/dL (6.3-8.2)
[2016-12-07 16:12] LABS: Creatine Kinase 123 U/L (30-135); Partial Thromboplastin Time 22.8 sec (22.0-30.0); Prothrombin Time 10.2 sec (9.0-12.0)
[2016-12-07 16:26] LABS: Creatine Kinase MB 0.8 ng/mL (0.0-2.4); Troponin I <0.012 ng/mL (0.000-0.034)
--- NOTE | 2016-12-07 16:27 | XR ---
EXAMINATION TYPE: XR chest 2V DATE OF EXAM: 12/07/2016 COMPARISON: NONE HISTORY: Weakness, coronary artery disease TECHNIQUE: Frontal and lateral views of the chest are obtained. FINDINGS: There is no focal air space opacity, pleural effusion, or pneumothorax seen. Patient is ro tated. There are overlying cardiac leads. The cardiac silhouette size is within normal limits. The osseous structures are intact. IMPRESSION: No acute cardiopulmonary process.
--- NOTE | 2016-12-07 16:57 | CT ---
EXAMINATION TYPE: CT brain wo con DATE OF EXAM: 12/07/2016 COMPARISON: Prior CT brain 05/14/2016 HISTORY: Weakness and falls. CT DLP: 1121.00 mGycm Automated exposure control for dose reduction was used. FINDINGS: There is no acute intracranial hemorrhage, mass effect, or midline shift identified. Periventricular white matter demyelination, cortical atrophy is again seen. The ventricles and sulci are within marco a l limits in size. The globes are intact and the visualized sinuses are clear. IMPRESSION: No acute intracranial hemorrhage, mass effect, or midline shift is seen.
[2016-12-07] MEDS ORDERED: LIDOCAINE 2% INJ 20 MG/ML (20 ML MDV) ONE (19:07)
[2016-12-07] MEDS ORDERED: LIDOCAINE 1% INJ 10MG/ML (20 ML MDV) ONE (19:07)
--- NOTE | 2016-12-07 19:31 | P.CNNES ---
History of Present Illness Consult date: 12/07/16 Reason for Consult: Patient admitted with bilateral leg weakness and back pain. History of Present Illness: This patient is a 71-year-old right-handed white female who was brought into the emergency room today for evaluation of sudden onset of bilateral leg weakness. She was accompanied by her daughter who has been providing help for her. The patient apparently celebrated her birthday yesterday and was noted by several family members as having a great deal of difficulty to stand and ambulate. According to the daughter she was shuffling and just taking one or 2 steps before feeling excessively fatigued and tired. According to the daughter this is a sudden change in the last 48 hours. Prior to that she was able to get up and ambulate with the use of a walker. She does have a history of having chronic low back pain. This was evaluated last year with some neuroimaging studies. After review of her tests she was not felt to require any surgical intervention. She has been managing fairly well and does use a walker at home. Apparently in the last 2 days she has significantly declined with inability to stand and significant weakness in both of her legs. She does have some degree of back pain which she rates as 3/10 in intensity at this time. She has not had any recent lumbar imaging studies. The patient was brought into the emergency room at [facility] for further evaluation. She required a wheelchair. She felt weak all over. The majority of her weakness was only in her legs as described to the ER physician. She was seen in the ER by Dr. Henson. He sent her for a computed tomography scan of the brain which was reported negative for acute stroke or hemorrhage. Given the acute onset of her symptoms that was concern for possibility of Guillain-Beaver syndrome. We did discuss this with Dr. Henson in the ER. We did recommend that a lumbar puncture be performed for further evaluation. Dr. Henson attempted 3 times to perform the LP. He was unsuccessful. He has consulted anesthesia to try and obtain the spinal fluid today. The patient has no previous history of similar episode of severe weakness in the legs. She has been having symptoms of fatigue in general but the leg weakness has been quite severe in the last 2 days. We are recommending an MRI of the lumbar spine to be done for further evaluation. Anesthesia has been consulted. If they are unsuccessful we are recommending a fluoroscopic LP to be done by radiology as soon as possible. The patient does have a history recently of being treated for temporal arteritis. She was treated for this condition with IV steroids and did seem to respond. Unfortunately she developed severe psychosis secondary to steroid use. She is unable to take steroids at this time. We have discussed all of this patient's exam findings with the patient and her daughter at bedside. She does appear to have significant bilateral lower extremity weakness. She is areflexic in the lower extremities but this may also be due to her history of diabetes and diabetic neuropathy. She states her back pain currently is only 3/ 10. Her weakness is significant and she is unable to stand without assistance at this time. We have discussed the differential diagnosis in detail with the patient and her daughter at bedside. We would like to rule out first and foremost the possibility of Guillain-Beaver syndrome. If she does test positive for this condition she will be started on IVIG as primary treatment for 5 days. The patient is now been admitted and neurology has been consulted for further evaluation and recommendations. Review of Systems Constitutional: Denies chills, Denies fever Eyes: denies blurred vision, denies pain Ears, nose, mouth and throat: Denies headache, Denies sore throat Cardiovascular: Denies chest pain, Denies shortness of breath Respiratory: Denies cough Gastrointestinal: Denies abdominal pain, Denies diarrhea, Denies nausea, Denies vomiting Genitourinary: Denies dysuria, Denies hematuria Musculoskeletal: Denies myalgias Integumentary: Denies pruritus, Denies rash Neurological: Denies numbness, Denies weakness Psychiatric: Denies anxiety, Denies depression Endocrine: Denies fatigue, Denies weight change Past Medical History Past Medical History: Coronary Artery Disease (CAD), Dementia, Diabetes Mellitus , Hyperlipidemia, Hypertension, Osteoarthritis (OA), Thyroid Disorder History of Any Multi-Drug Resistant Organisms: None Reported Additional Past Surgical History / Comment(s): carotid gland surgery Past Psychological History: No Psychological Hx Reported Additional Psychological History / Comment(s): Dementia Smoking Status: Never smoker Past Alcohol Use History: None Reported Past Drug Use History: None Reported Medications and Allergies Home Medications Medication Instructions Recorded Confirmed Type Glimepiride [Amaryl] 2 mg PO W/BRKFST 05/14/16 12/07/16 History Losartan Potassium 100 mg PO QAM 05/14/16 12/07/16 History amLODIPine [Norvasc] 5 mg PO BID 05/14/16 12/07/16 History metFORMIN HCL [Glucophage] 500 mg PO BID 05/14/16 12/07/16 History Ergocalciferol [Vitamin D2 50,000 unit PO Q14D 07/26/16 12/07/16 History (DRISDOL)] Ibuprofen [Motrin] 800 mg PO Q8HR PRN 07/27/16 12/07/16 History Divalproex Sodium [Depakote ER] 500 mg PO BID 12/07/16 12/07/16 History Furosemide [Lasix] 40 mg PO BID 12/07/16 12/07/16 History Glimepiride [Amaryl] 1 mg PO W/SUPPER 12/07/16 12/07/16 History Insulin Glargine,Hum.rec.anlog 12 units SQ HS 12/07/16 12/07/16 History [Toujeo Solostar] Levothyroxine Sodium [Synthroid] 75 mcg PO QAM 12/07/16 12/07/16 History Mar-Gxio-Ehcli Acid 1 cap PO QAM 12/07/16 12/07/16 History [-U Capsule (formulary)] metFORMIN HCL [Metformin HCl] 1,000 mg PO AC-BRKFST 12/07/16 12/07/16 History Allergies Allergy/AdvReac Type Severity Reaction Status Date / Time codeine AdvReac Nausea & Verified 12/07/16 18:08 Vomiting morphine AdvReac Nausea & Verified 12/07/16 18:08 Vomiting Physical Examination - Vital Signs Vital Signs: Vital Signs Temp Pulse Resp BP Pulse Ox 12/07/16 18:15 98.4 F 67 18 174/86 99 12/07/16 17:37 68 185/93 98 12/07/16 17:24 75 210/95 12/07/16 15:52 75 180/80 12/07/16 15:16 97.8 F 72 18 163/76 98 Intake and Output 12/07/16 12/07/16 12/07/16 06:59 14:59 22:59 Other: Weight 107.955 kg Patient Weight 12/08/16 06:59 Weight 107.955 kg - Constitutional General appearance: cooperative, obese - EENT EENT: PERRL, mucous membranes moist - Respiratory Respiratory: lungs clear, normal breath sounds - Cardiovascular Cardiovascular: regular rate, normal S1, normal S2 Extremities: no peripheral edema bilaterally - Gastrointestinal Gastrointestinal: normoactive bowel sounds - Integumentary Integumentary: normal - Neurologic Cranial nerve examination: PERRL, EOMI, VFF, V1/V2/V3 grossly intact, face symmetric, tongue midline, intact gag reflex, intact corneal reflex, normal palatal elevation Speech examination: intact Sensorimotor examination: intact Motor examination - right side: 1/5: dorsiflexion, toe extension (EHL), plantarflexion, 2/5: knee extensors, 3/5: hip flexors, 5/5: biceps, triceps, wrist flexion, wrist extension, truck spotter Motor examination - left side: 1/5: dorsiflexion, toe extension (EHL), plantarflexion, 2/5: knee extensors, 3/5: hip flexors, 5/5: biceps, triceps, wrist flexion, wrist extension, truck spotter Detailed sensory examination: intact Reflex and gait examination: intact Reflexes: 1+: ankle, bicep, knee, tricep - Musculoskeletal Musculoskeletal: no pain - Psychiatric Psychiatric: mood/affect appropriate, cooperative Results - Laboratory Findings CBC and BMP: 12/07/16 15:40 12/07/16 15:40 Abnormal Lab Findings: Abnormal Labs 12/07/16 12/07/16 12/07/16 15:40 15:40 15:51 Hgb 11.2 L BUN 21 H Creatinine 1.08 H Glucose 112 H Urine Protein Trace H Urine Ketones 1+ H Assessment and Plan (1) Acute inflammatory demyelinating polyneuropathy Status: Acute Code(s): G37.8 - OTH DEMYELINATING DISEASES OF CENTRAL NERVOUS SYSTEM (2) Lumbar disc disease with radiculopathy Status: Acute Code(s): M51.16 - INTERVERTEBRAL DISC DISORDERS W RADICULOPATHY , LUMBAR REGION (3) Diabetes mellitus Status: Acute Code(s): E11.9 - TYPE 2 DIABETES MELLITUS WITHOUT COMPLICATIONS (4) Leg weakness Status: Acute Code(s): R29.898 - OTH SYMPTOMS AND SIGNS INVOLVING THE MUSCULOSKELETAL SYSTEM Plan: This patient is a 71-year-old right-handed white female who was brought into the emergency room at [facility] for evaluation of severe leg weakness bilaterally of relatively sudden onset. Patient was brought in by her daughter who states that in the last 48 hours are spent a drastic change in her ability to walk and ambulate at home. She had celebrated her birthday yesterday with several family members and was noted by them as having a major change in her leg strength bilaterally. She was unable to get up out of bed this morning. Her daughter finally decided to bring her to the emergency room today for further evaluation. She was seen in the ER by Dr. Henson. Computed tomography scan of the brain was done and was negative for any acute changes. We had recommended a lumbar puncture to be done to rule out Guillain-Beaver syndrome. 3 attempts were made by Dr. Henson in the ER however he was unsuccessful. Anesthesia has been consulted and we will await to see if this can be completed as soon as possible. If this also fails she will need to undergo fluoroscopic lumbar puncture procedure for spinal fluid analysis. We will await the spinal fluid results to see if she does have a more definitive pitcher for Guillain-Beaver syndrome. If she does prove to be positive for Guillain-Beaver she will require IVIG treatment for 5 days. We've discussed all of these findings today with the patient and her daughter at bedside. They're aware of her very guarded condition at this time. We would recommend an MRI of the lumbar spine to further evaluate for any acute lumbar disc disease as well. She does have a history of chronic low back pain. We recommend tight control of her diabetes mellitus. We will continue close neurological follow-up of this patient during this admission. Her overall prognosis at this time remains very guarded. Time with Patient: Greater than 30
--- NOTE | 2016-12-07 19:38 | P.PN ---
Progress Note - Text Anesthesia was consulted to perform a lumbar puncture by Dr. Arslan Piña. There was a prior attempt earlier today by the ER physician to perform a lumbar puncture and it was not successful. The patient is incurring [lower extremity weakness ]. The chart was reviewed. The procedure, the risks and benefits of the procedure, were explained to the patient. The patient then agreed to the procedure after informed consent was obtained. Procedure: The patient was placed in the sitting position. The low back was then sterilely prepped and draped. Then 1 mL of lidocaine 1% was injected subcutaneously at the L3-L4 interspace. Then a 22-gauge quinke spinal needle was placed into the subarachnoid space at L3-L4 without difficulty. Then approximately 8 mL's of clear colorless spinal fluid was obtained in 4 tubes. 2 mL's/tube. The patient tolerated the procedure well. There were no complications. Instructions were then given to the patient. Patient was to be at bed rest for the next 2 hours. Patient is encouraged to increase oral fluids. Patient may take previously prescribed pain meds if needed.
[2016-12-07] MEDS: SODIUM CHLORIDE 0.9% 1,000 ML IV SCH (19:52)
[2016-12-07] MEDS ORDERED: IBUPROFEN 800 MG TAB PO PRN (20:09)
[2016-12-07 20:14] LABS: Glucose,CSF 59 mg/dL (40-70)
[2016-12-07 20:36] LABS: Glucose,Whole Blood 61 mg/dL (75-99)
[2016-12-07] MEDS: DIVALPROEX ER 500 MG TAB.ER.24H PO SCH (20:38)
[2016-12-07] MEDS: FUROSEMIDE 40 MG TAB PO SCH (20:39)
[2016-12-07] MEDS: amLODIPine 5 MG TAB PO SCH (20:39)
[2016-12-07] MEDS: INSULIN LISPRO (humaLOG) 300 UNIT/3 ML VIAL SQ SCH (20:39)
[2016-12-07] MEDS: metFORMIN 500 MG TAB PO SCH (20:40)
[2016-12-07] MEDS: INSULIN GLARGINE 100 UNIT/ML 10 ML VIAL SQ SCH (20:41)
[2016-12-07 20:54] LABS: Prothrombin Time 10.4 sec (9.0-12.0)
[2016-12-07 21:01] LABS: Glucose,Whole Blood 92 mg/dL (75-99)
[2016-12-07 22:16] LABS: Appearance,CSF Clear
[2016-12-07 22:22] LABS: Appearance,CSF Clear
[2016-12-07 22:23] LABS: Red Blood Cell, CSF Crenated 95 %; Red Blood Cell, CSF Fresh 5 %
[2016-12-07 22:27] VITALS: BMI 39.6
[2016-12-08] MEDS: LEVOTHYROXINE 75 MCG TAB PO SCH (05:50)
[2016-12-08] MEDS: INSULIN LISPRO (humaLOG) 300 UNIT/3 ML VIAL SQ SCH ×4 (06:30→20:36)
[2016-12-08 07:30] LABS: Glucose,Whole Blood 80 mg/dL (75-99)
[2016-12-08 07:39] LABS: Cholesterol 189 mg/dL (<200); HDL Cholesterol 45 mg/dL (40-60); Triglycerides 139 mg/dL (<150)
[2016-12-08] MEDS: metFORMIN 500 MG TAB PO SCH ×3 (07:45→18:11)
[2016-12-08] MEDS: FUROSEMIDE 40 MG TAB PO SCH ×2 (08:30→20:35)
[2016-12-08] MEDS: DIVALPROEX ER 500 MG TAB.ER.24H PO SCH ×2 (08:30→20:35)
[2016-12-08] MEDS: LOSARTAN 50 MG TAB PO SCH (08:30)
[2016-12-08] MEDS: GLIMEPIRIDE 2 MG TAB PO SCH (08:30)
[2016-12-08] MEDS: amLODIPine 5 MG TAB PO SCH ×2 (08:30→20:35)
[2016-12-08] MEDS: IMMUNE GLOBULIN (HUMAN-IGG) 5 GM in EMPTY BAG 1 BAG IV ONE ×2 (08:48→11:00)
[2016-12-08] MEDS ORDERED: IMMUNE GLOBULIN 1 GM/10 ML VL IV SCH (09:00)
[2016-12-08] MEDS ORDERED: IMMUNE GLOBULIN (HUMAN-IGG) 20 GM in EMPTY BAG 1 BAG IV ONE (10:00)
--- NOTE | 2016-12-08 10:49 | US ---
EXAMINATION TYPE: US carotid duplex BILAT DATE OF EXAM: 12/08/2016 COMPARISON: NONE CLINICAL HISTORY: Stenosis. Stenosis EXAM MEASUREMENTS: RIGHT: Peak Systolic Velocity (PSV) cm/sec ----- Right CCA: 48.8 ----- Right ICA: 49.6 ----- Right ECA: 47.9 ICA/CCA ratio: 1.0 RIGHT: End Diastole cm/sec ----- Right CCA: 8.3 ----- Right ICA: 12.5 ----- Right ECA: 6.4 LEFT: Peak Systolic Velocity (PSV) cm/sec ----- Left CCA: 43.3 ----- Left ICA: 41.6 ----- Left ECA: 41.6 ICA/CCA ratio: 1.0 LEFT: End Diastole cm/sec ----- Left CCA: 7.4 ----- Left ICA: 13.3 ----- Left ECA: 5.6 VERTEBRALS (direction of flow): Right Vertebral: Antegrade Left Vertebral: Antegrade No elevated velocities, no significant stenosis Grayscale, color Doppler, spectral Doppler imaging performed of the carotid arteries. IMPRESSION: No hemodynamic significant stenosis of the proximal internal carotid arteries bilaterall y by Doppler criteria, an indirect measurement of carotid stenosis
[2016-12-08 11:12] LABS: Hemoglobin A1C 6.6 % (4.2-6.1)
--- NOTE | 2016-12-08 11:16 | ECHOF ---
Referral Reason:Thrombus MEASUREMENTS -------- HEIGHT: 165.1 cm WEIGHT: 108.0 kg BP: 177/84 RVIDd: 2.8 cm (< 3.3) IVSd: 1.3 cm (0.6 - 1.1) LVIDd: 5.0 cm (3.9 - 5.3) LVPWd: 1.3 cm (0.6 - 1.1) IVSs: 1.8 cm LVIDs: 3.0 cm LVPWs: 1.9 cm LA Diam: 3.4 cm (2.7 - 3.8) LAESV Index (A-L): 17.48 ml/m Ao Diam: 3.4 cm (2.0 - 3.7) AV Cusp: 1.7 cm (1.5 - 2.6) MV EXCURSION: 14.230 mm (> 18.000) MV EF SLOPE: 61 mm/s (70 - 150) EPSS: 0.8 cm MV E Costa: 0.84 m/s MV DecT: 197 ms MV A Costa: 0.86 m/s MV E/A Ratio: 0.98 FINDINGS -------- Sinus rhythm. This was a technically good study. The left ventricular size is normal. There is mild concentric left ventricular hypertrophy. Overall left ventricular systolic function is normal with, an EF between 55 - 60 %. The right ventricle is normal in size and function. Normal LA size by volume 22+/-6 ml/m2. The right atrium is normal in size. There is mild aortic valve sclerosis. Mild mitral annular calcification present. There is trace mitral regurgitation. The tricuspid valve appears structurally normal. Trace/mild (physiologic) pulmonic regurgitation. The aortic root size is normal. IVC Not well visulized. The pericardium is normal. CONCLUSIONS -------- 1. Sinus rhythm. 2. Mild mitral annular calcification present. 3. There is trace mitral regurgitation. 4. The tricuspid valve appears structurally normal. 5. Trace/mild (physiologic) pulmonic regurgitation. 6. The aortic root size is normal. 7. IVC Not well visulized. 8. The pericardium is normal. 9. This was a technically good study. 10. The left ventricular size is normal. 11. There is mild concentric left ventricular hypertrophy. 12. Overall left ventricular systolic function is normal with, an EF between 55 - 60 %. 13. The right ventricle is normal in size and function. 14. Normal LA size by volume 22+/-6 ml/m2. 15. The right atrium is normal in size. 16. There is mild aortic valve sclerosis. [employer] MACHINE: Becca Trevino RDCS
[2016-12-08 12:06] LABS: Glucose,Whole Blood 97 mg/dL (75-99)
[2016-12-08 12:17] LABS: Glucose,Whole Blood 88 mg/dL (75-99)
--- NOTE | 2016-12-08 13:55 | P.HPIM ---
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 Also was seen by physiatry and orthopedic for mild to moderate spinal stenosis of the lumbar spine did not require any surgery. Patient has been seen Dr. Marcus's last few month she apparently has been having significant decreased mobility with multiple fall abnormal balance and gait and worsening encephalopathy. Patient presented to the emergency department by a family late on 12/07/2016 not been able to ambulate and walk and severe weakness of the lower extremity becomes sudden that day. Patient was seen and evaluated her testing in the emergency room did not show initially any major abnormality. CAT scan of the brain showed no acute intracranial abnormality. 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 Dr. Mcdaniels was called to see patient in the emergency department and order IVIG after LP was ordered to be done for spinal fluid analysis. Patient was admitted to the hospital after her LP done. Review of Systems Constitutional: Reports chronic pain, Reports fatigue, Reports lethargy, Reports malaise, Denies as per HPI, Denies anorexia, Denies chills, Denies chronic headaches, Denies daytime sleepiness, Denies fever, Denies night sweats , Denies poor appetite, Denies sweats, Denies weakness, Denies weight gain, Denies weight loss Eyes: bilateral as per HPI Ears: bilateral: decreased hearing Ears, nose, mouth and throat: Reports ant. neck pain, Reports nasal congestion, Reports nasal discharge, Reports sinus pressure, Reports sore throat, Denies as per HPI, Denies bleeding gums, Denies dental pain, Denies dysphagia, Denies epistaxis, Denies headache, Denies hoarseness, Denies mouth pain, Denies neck fullness/pressure, Denies neck lump, Denies nose pain, Denies odynophagia, Denies post-nasal drip, Denies sinus pain, Denies swelling in mouth, Denies swelling in throat, Denies vertigo, Denies voice changes Breasts: bilateral: as per HPI Cardiovascular: Reports chest pain, Reports decreased exercise tolerance, Reports edema, Reports high blood pressure, Denies as per HPI, Denies claudication, Denies dyspnea on exertion, Denies irregular heart beat, Denies leg edema, Denies lightheadedness, Denies orthopnea, Denies palpitations, Denies paroxysmal nocturnal dyspnea, Denies phlebitis, Denies rapid heart beat, Denies shortness of breath, Denies syncope Respiratory: Reports congestion, Reports cough, Reports dyspnea, Reports home oxygen, Denies as per HPI, Denies cough with sputum, Denies excessive sputum, Denies hemoptysis, Denies pain, Denies pain on inspiration, Denies pleurisy, Denies respiratory infections, Denies sleep apnea, Denies snoring, Denies wheezing Gastrointestinal: Reports abdominal pain, Reports bloating, Reports dyspepsia, Reports excessive gas, Reports heartburn, Reports indigestion, Reports nausea, Denies as per HPI, Denies belching, Denies BRBPR, Denies change in bowel habits , Denies coffee ground emesis, Denies constipation, Denies diarrhea, Denies early satiety, Denies hematemesis, Denies hematochezia, Denies jaundice, Denies lactose intolerance, Denies loss of appetite, Denies melena, Denies vomiting Genitourinary: Reports nocturia, Reports stress incontinence, Denies as per HPI , Denies abnormal vaginal bleeding, Denies decreased libido, Denies difficulty conceiving, Denies difficulty voiding, Denies dysmenorrhea, Denies dyspareunia, Denies dysuria, Denies flank pain, Denies genital sores, Denies hematuria, Denies hot flashes, Denies incomplete emptying, Denies kidney stones, Denies menorrhagia, Denies mixed incontinence, Denies pelvic pain, Denies post void dribbling, Denies , Denies prolapse symptoms, Denies urge incontinence, Denies urgency, Denies urinary frequency, Denies vaginal discharge, Denies vaginal dryness, Denies vaginal itching, Denies vaginal odor Musculoskeletal: Reports frequent falls, Reports gait dysfunction, Reports low back pain, Reports morning stiffness, Reports muscle cramps, Reports muscle weakness, Denies as per HPI, Denies arm numbness/tingling, Denies atrophy, Denies fractures, Denies hot joints, Denies leg numbness/tingling, Denies limitation of motion, Denies loss of height, Denies myalgias, Denies neck pain, Denies neck stiffness, Denies prior amputations, Denies redness of joints, Denies shooting arm pain, Denies shooting leg pain Musculoskeletal: bilateral: ankle pain, ankle stiffness, foot pain, foot stiffness, foot swelling Integumentary: Reports dryness, Reports pruritus, Reports rash, Denies as per HPI, Denies acne, Denies boils, Denies brittle nails, Denies change in hair/ nails, Denies color changes, Denies darkening of skin, Denies depigmentation, Denies foot/leg ulcers, Denies growths, Denies hirsutism, Denies lesions, Denies onychomycosis, Denies sores, Denies striae, Denies unusual bruising, Denies wounds Neurological: Reports ataxia, Reports motor disturbance, Reports numbness, Reports paresthesias, Denies as per HPI, Denies aphasia, Denies balance difficulties, Denies burning pain, Denies change in mentation, Denies change in smell/taste, Denies change in speech, Denies confusion, Denies convulsions, Denies double vision, Denies gait dysfunction, Denies head injury, Denies headaches, Denies hearing difficulties, Denies lack of coordination, Denies loss of vision, Denies memory loss, Denies migraines, Denies paralysis, Denies seizures, Denies sensory deficit, Denies spasticity, Denies syncope, Denies tic , Denies tingling, Denies transient paralysis, Denies tremors, Denies vertigo, Denies weakness, Denies visual changes Psychiatric: Reports anhedonia, Reports anxiety, Reports anxiety attacks, Reports change in sleep habits, Reports depression, Reports difficulty concentrating, Reports hypersomnia, Reports mood swings, Reports sadness/ tearfulness Endocrine: Reports fatigue, Reports flushing, Reports heat intolerance, Reports thyroid mass, Denies as per HPI, Denies cold intolerance, Denies deepening of the voice, Denies excessive sweating, Denies excessive thirst, Denies high blood sugars, Denies increase in ring/shoe/hat size, Denies low blood sugars, Denies nocturia, Denies palpitations, Denies polydipsia, Denies polyphagia, Denies polyuria, Denies proptosis, Denies recent glucocorticoid use, Denies weight change Hematologic/Lymphatic: Reports easy bleeding, Denies as per HPI, Denies easy bruising, Denies lymphadenopathy, Denies lymphedema, Denies thrombophilia Allergic/Immunologic: Denies as per HPI, Denies allergic rhinitis, Denies anaphylaxis, Denies angioedema, Denies gluten intolerance, Denies persistent infections, Denies seasonal allergies, Denies urticaria, Denies wheezing Past Medical History Past Medical History: Coronary Artery Disease (CAD), Dementia, Diabetes Mellitus , Hyperlipidemia, Hypertension, Osteoarthritis (OA), Thyroid Disorder History of Any Multi-Drug Resistant Organisms: None Reported Additional Past Surgical History / Comment(s): carotid gland surgery Past Psychological History: No Psychological Hx Reported Additional Psychological History / Comment(s): Dementia Smoking Status: Never smoker Past Alcohol Use History: None Reported Past Drug Use History: None Reported Medications and Allergies Home Medications Medication Instructions Recorded Confirmed Type Glimepiride [Amaryl] 2 mg PO W/BRKFST 05/14/16 12/07/16 History Losartan Potassium 100 mg PO QAM 05/14/16 12/07/16 History amLODIPine [Norvasc] 5 mg PO BID 05/14/16 12/07/16 History metFORMIN HCL [Glucophage] 500 mg PO BID 05/14/16 12/07/16 History Ergocalciferol [Vitamin D2 50,000 unit PO Q14D 07/26/16 12/07/16 History (DRISDOL)] Ibuprofen [Motrin] 800 mg PO Q8HR PRN 07/27/16 12/07/16 History Divalproex Sodium [Depakote ER] 500 mg PO BID 12/07/16 12/07/16 History Furosemide [Lasix] 40 mg PO BID 12/07/16 12/07/16 History Glimepiride [Amaryl] 1 mg PO W/SUPPER 12/07/16 12/07/16 History Insulin Glargine,Hum.rec.anlog 12 units SQ HS 12/07/16 12/07/16 History [Toujeo Solostar] Levothyroxine Sodium [Synthroid] 75 mcg PO QAM 12/07/16 12/07/16 History Cbg-[id number]-Znqpv Acid 1 cap PO QAM 12/07/16 12/07/16 History [-U Capsule (formulary)] metFORMIN HCL [Metformin HCl] 1,000 mg PO AC-BRKFST 12/07/16 12/07/16 History Allergies Allergy/AdvReac Type Severity Reaction Status Date / Time codeine AdvReac Nausea & Verified 12/07/16 18:08 Vomiting morphine AdvReac Nausea & Verified 12/07/16 18:08 Vomiting Physical Exam Vitals: Vital Signs Temp Pulse Pulse Resp BP BP Pulse Ox 12/08/16 08:00 66 18 12/08/16 07:00 98.7 F 66 18 166/87 97 12/08/16 06:00 97.5 F L 67 16 177/84 97 12/08/16 04:00 97.8 F 65 162/85 99 12/08/16 02:00 77 16 156/91 98 12/08/16 00:00 97.3 F L 62 169/88 95 12/07/16 22:11 97.7 F 63 16 156/74 97 12/07/16 19:50 65 194/89 95 12/07/16 18:15 98.4 F 67 18 174/86 99 12/07/16 17:37 68 185/93 98 12/07/16 17:24 75 210/95 12/07/16 15:52 75 180/80 12/07/16 15:16 97.8 F 72 18 163/76 98 Intake and Output 12/07/16 12/08/16 12/08/16 22:59 06:59 14:59 Other: Voiding Method Bedside Commode Bedside Commode Diaper Diaper # Voids 1 1 Weight 107.955 kg - Constitutional General appearance: no average body habitus, cooperative, disheveled, no mild distress, no morbidly obese, no acute distress, no obese, no severe distress, no thin - EENT Eyes: no abnormal pupil, no anicteric sclerae, no disc margins sharp, no edentulous, no EOMI, no PERRLA, no fundus normal, no photophobia, no dentition normal, no poor dentition, no ptosis, no scleral icterus, normal appearance ENT: no hard of hearing, no hearing grossly normal, no NA/AT, normal oropharynx , no other, pharyngeal erythema, no thrush, no tonsillar exudates, no tonsillar swelling Ears: bilateral: normal - Neck Neck: normal ROM Carotids: left: upstroke normal, upstroke delayed Thyroid: bilateral: normal size - Respiratory Respiratory: bilateral: CTA, diminished - Cardiovascular Rhythm: regular Heart sounds: normal: S1, S2 Abnormal Heart Sounds: systolic murmur - Gastrointestinal General gastrointestinal: no absent bowel sounds, no decreased bowel sounds, no distended, no hepatomegaly, no hyperactive bowel sounds, normal bowel sounds, no organomegaly, no rigid, no scaphoid, soft, no splenomegaly, no tenderness, no umbilical hernia, no ventral hernia - Integumentary Integumentary: normal, pale, rash - Neurologic Creatinine nerve II-12 intact even family up approach with slightly droopy face before she made it to the emergency room had recover after the her emergency course. Lower extremity had slight more weakness in the left compared to the right side but both still weak compared to her baseline right-sided 3 out of 5 compared to 2 out of 5 for the left. Upper extremity strength is better but 3+ over 5 in both. Not been able to do gait exam currently the patient had slight flatter flexes at this point. With help she still shoveling when she had them to walk similar to parkinsonism with no other Parkinson symptoms. Neurologic: CNII-XII intact - Musculoskeletal Musculoskeletal: generalized weakness, left sided weakness - Psychiatric Psychiatric: A&O x's 3, appropriate affect, no intact judgment & insight Results CBC & Chem 7: 12/07/16 15:40 12/07/16 15:40 Labs: Abnormal Lab Results - Last 24 Hours (Table) 12/07/16 12/07/16 12/07/16 Range/Units 15:40 15:40 15:51 Hgb 11.2 L (11.4-16.0) gm/dL BUN 21 H (7-17) mg/dL Creatinine 1.08 H (0.52-1.04) mg/dL Glucose 112 H (74-99) mg/dL POC Glucose (mg/dL) (75-99) mg/dL Hemoglobin A1c (4.2-6.1) % LDL Cholesterol, Calc (0-99) mg/dL Urine Protein Trace H (Negative) Urine Ketones 1+ H (Negative) CSF RBC (0-10) u/L CSF Total Protein (12-60) mg/dL 12/07/16 12/07/16 12/07/16 Range/Units 17:15 17:15 20:33 Hgb (11.4-16.0) gm/dL BUN (7-17) mg/dL Creatinine (0.52-1.04) mg/dL Glucose (74-99) mg/dL POC Glucose (mg/dL) 61 L (75-99) mg/dL Hemoglobin A1c (4.2-6.1) % LDL Cholesterol, Calc (0-99) mg/dL Urine Protein (Negative) Urine Ketones (Negative) CSF RBC 423 H (0-10) u/L CSF Total Protein 69 H (12-60) mg/dL 12/08/16 12/08/16 Range/Units 06:57 06:57 Hgb (11.4-16.0) gm/dL BUN (7-17) mg/dL Creatinine (0.52-1.04) mg/dL Glucose (74-99) mg/dL POC Glucose (mg/dL) (75-99) mg/dL Hemoglobin A1c 6.6 H (4.2-6.1) % LDL Cholesterol, Calc 116 H (0-99) mg/dL Urine Protein (Negative) Urine Ketones (Negative) CSF RBC (0-10) u/L CSF Total Protein (12-60) mg/dL Microbiology - Last 24 Hours (Table) 12/07/16 17:15 CSF Gram Stain - Preliminary Cerebral Spinal Fluid CSF Culture - Preliminary Thrombosis Risk Factor Assmnt - DVT/VTE Prophylaxis DVT/VTE Prophylaxis: Pharmacologic Prophylaxis ordered, Mechanical Prophylaxis ordered - Choose All That Apply Any of the Below Risk Factors Present?: Yes Each Factor Represents 1 point: Obesity (BMI >25), Swollen legs (current) Other Risk Factors: Yes Each Risk Factor Represents 2 Points: Age 61-74 years Thrombosis Risk Factor Assessment Total Risk Factor Score: 4 Thrombosis Risk Factor Assessment Level: Moderate Risk Assessment and Plan Plan: 1 severe weakness of the lower extremity: 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 Mcdaniels cannot be on any steroid at this point with her recent reactive psychosis from steroid. 2 severe abnormal balance gait and mobility with known mild to moderate spinal stenosis [address] jackson off MRI of the lumbar spine was order to see if there is any abnormality new or change compared to 2 years ago. 3 mild to moderate encephalopathy: Patient is doing better with her mentation but has not been back to normal completely since her acute psychosis from steroid. 4 giant cell arthritis: She was taking off steroids so far she was seen by Dr. Tatiana cosme in [facility] and manage till she was weaned off steroids. 5 diabetes: Patient remain on metformin 500 mg 2 in the morning when in the evening along with Amaryl 2 mg in a.m. 1 mg in p.m. still using Toujeo 12 unit to at bedtime and sliding scales as needed. 6 recent history of acute psychosis: Has been on Depakote CAD ER 500 mg twice a day. 7 chronic neuropathy: Has not been on any medication lately if can't tolerate gabapentin might be a good option and choice. 8 hypothyroidism: Continue levothyroxine 75 g daily. 9 hypertension: Remain on Norvasc 5 mg twice a day and losartan 100 mg daily. 10 Friday elevated creatinine: With GFR still normal at this point with no sign of chronic kidney disease. 11 GI prophylaxis: Patient will be on hep Synthroid 20 mg daily. 12 DVT prophylaxis: Patient will be on heparin 5000 units obtain his twice a day. Next CODE STATUS: Full code. Family meeting: I had long discussion with the daughter all her questions were answer, the son apparently was upset refused to stay in the room at the time. The plan was still to order an MRI of the lumbar spine and follow Dr. Arslan cardenas still ask if patient had any consistent symptom with Parkinson disease and how to guided through making a diagnosis of severe progressive neuropathy. Expectation from this admission: Patient be in the hospital for more than 2 nights
[2016-12-08 17:27] LABS: Glucose,Whole Blood 104 mg/dL (75-99)
[2016-12-08] MEDS: SODIUM CHLORIDE 0.9% 1,000 ML IV SCH (18:11)
[2016-12-08] MEDS: GLIMEPIRIDE 1 MG TAB PO SCH (18:18)
--- NOTE | 2016-12-08 19:42 | P.PN ---
Subjective This patient is a 71-year-old right-handed -[place] female who was admitted to hospital yesterday with complaint of severe bilateral leg weakness present further 2 days prior to her admission. Apparently prior to this she had been ambulating at home very easily. She suddenly became quite severe in the bilateral leg weakness. Her daughter was noticing this significant change and decided to bring her to the emergency room for further evaluation yesterday. She was seen in the ER by Dr. Henson. It was recommended for her to undergo a lumbar puncture for further evaluation and Dr. Henson attempted this in the ER. He tried 3 times and was unsuccessful. Anesthesia was consulted and they were able to obtain spinal fluid. Her spinal fluid analysis from yesterday came back revealing CSF protein of 69 and slightly elevated. CSF glucose was 59. 2 for containing 0 RBCs and 0 WBCs. 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 She was started on IVIG and is tolerating this quite well. We would recommend she continue on IVIG daily for 5 days. Physical therapy is also been consulted and we will await their assessment. Patient states she was able to ambulate to the bathroom with assistance earlier this morning. She feels there may be slight improvement in her lower extremity strength. We have recommended a MRI of the lumbar spine to be done and we're waiting this to be scheduled for her for further evaluation of her known history of chronic low back pain. Depending on these results she may require reevaluation from orthopedic spine surgery. Her overall prognosis at this time remains guarded. Objective - Vital Signs Vital signs: Vital Signs Temp 97.6 F 12/08/16 18:00 Pulse 79 12/08/16 18:00 Resp 18 12/08/16 18:00 BP 164/79 12/08/16 18:00 Pulse Ox 99 12/08/16 18:00 Intake & Output 12/08/16 12/08/16 12/09/16 06:59 18:59 06:59 Weight 107.955 kg Other: Voiding Method Bedside Commode Bedside Commode Diaper Diaper # Voids 1 2 - Exam Physical examination: PHYSICAL EXAMINATION: Patient is resting comfortably in bed. VITAL SIGNS: Blood pressure is [164/79]. Heart rate is [79]. Respiration is [18] . Temperature is [97.7]. HEENT: Head is atraumatic, neck is supple, there were no carotid bruits. CHEST: Lungs are clear to auscultation and percussion. CARDIAC: S1, S2 normal rate and rhythm. There is no murmur. ABDOMEN: Soft and nontender. Bowel sounds are present. EXTREMITIES: There is no pedal edema. Peripheral pulses are present. Neurological examination: Patient's neurological examination is unchanged from yesterday. She remains areflexic in the lower extremities. Muscle strength is unchanged from yesterday in the lower extremities. - Labs CBC & Chem 7: 12/07/16 15:40 12/07/16 15:40 Labs: Abnormal Lab Results - Last 24 Hours (Table) 12/07/16 12/07/16 12/07/16 Range/Units 17:15 17:15 20:33 POC Glucose (mg/dL) 61 L (75-99) mg/dL Hemoglobin A1c (4.2-6.1) % LDL Cholesterol, Calc (0-99) mg/dL CSF RBC 423 H (0-10) u/L CSF Total Protein 69 H (12-60) mg/dL 12/08/16 12/08/16 12/08/16 Range/Units 06:57 06:57 17:26 POC Glucose (mg/dL) 104 H (75-99) mg/dL Hemoglobin A1c 6.6 H (4.2-6.1) % LDL Cholesterol, Calc 116 H (0-99) mg/dL CSF RBC (0-10) u/L CSF Total Protein (12-60) mg/dL Microbiology - Last 24 Hours (Table) 12/07/16 17:15 CSF Gram Stain - Preliminary Cerebral Spinal Fluid CSF Culture - Preliminary Assessment and Plan (1) Acute inflammatory demyelinating polyneuropathy Status: Acute Code(s): G37.8 - OTH DEMYELINATING DISEASES OF CENTRAL NERVOUS SYSTEM (2) Lumbar disc disease with radiculopathy Status: Acute Code(s): M51.16 - INTERVERTEBRAL DISC DISORDERS W RADICULOPATHY , LUMBAR REGION (3) Diabetes mellitus Status: Acute Code(s): E11.9 - TYPE 2 DIABETES MELLITUS WITHOUT COMPLICATIONS (4) Leg weakness Status: Acute Code(s): R29.898 - OTH SYMPTOMS AND SIGNS INVOLVING THE MUSCULOSKELETAL SYSTEM Plan: This patient is a 71-year-old right-handed -[place] female admitted to hospital yesterday with 2 day history of severe weakness in bilateral lower extremities. Patient apparently was unable to stand and walk on the day of her admission to the hospital. She was seen in the emergency room in an attempt to perform a lumbar puncture was done by the ER physician Dr. Henson. This was unsuccessful and anesthesia was consulted and a lumbar puncture was completed yesterday. Spinal fluid results are as noted above. CSF was abnormal with increase in serum protein. Given her history of areflexia with sudden bilateral lower extremity weakness there was concern for possibility of early Guillain-Beaver syndrome. 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 We did review the results of the spinal fluid today with the patient in detail. She has been able to get up with assistance but is a 2 person assist. She was able to take a few steps. We are recommending that she continue on IVIG for 5 days. She is also awaiting an MRI of the lumbar spine to be done for further evaluation of her chronic low back pain and recent changes with muscle strength in the lower extremities. We are recommending physical therapy to evaluate her as well. We will continue to follow her progress closely. We have reviewed all of the test results today with the patient at bedside. All of her questions were answered. She is aware of our current treatment plan and is in full agreement. Overall prognosis at this time remains guarded.
[2016-12-08 20:17] LABS: Glucose,Whole Blood 173 mg/dL (75-99)
[2016-12-08] MEDS: INSULIN GLARGINE 100 UNIT/ML 10 ML VIAL SQ SCH (20:36)
[2016-12-08] MEDS: HEPARIN SODIUM,PORCINE 5,000 UNIT/ML 1 ML VIAL SQ SCH (20:36)
[2016-12-08 21:58] VITALS: RESP 16
[2016-12-09] MEDS: SODIUM CHLORIDE 0.9% 1,000 ML IV SCH ×4 (04:44→17:17)
[2016-12-09] MEDS: LEVOTHYROXINE 75 MCG TAB PO SCH (06:18)
[2016-12-09 07:01] LABS: Anion Gap 11 mmol/L; Calcium 8.6 mg/dL (8.4-10.2); Carbon Dioxide 23 mmol/L (22-30); Chloride 111 mmol/L (98-107); Glucose 83 mg/dL (74-99); Non-African American GFR(MDRD) >60 (>60 ml/min/1.73 sqM); Sodium 145 mmol/L (137-145); Total Bilirubin 0.6 mg/dL (0.2-1.3); Total Protein 8.1 g/dL (6.3-8.2)
[2016-12-09 07:07] LABS: ALT 29 U/L (9-52); AST 32 U/L (14-36); Alkaline Phosphatase 51 U/L (38-126); Blood Urea Nitrogen 12 mg/dL (7-17); Potassium 3.6 mmol/L (3.5-5.1)
[2016-12-09 07:49] LABS: Glucose,Whole Blood 81 mg/dL (75-99)
[2016-12-09 07:49] LABS: Basophils % (A) 1 %; CHCM 31.6; Eosinophils # (A) 0.1 k/uL (0-0.7); Eosinophils % (A) 2 %; HDW 2.58; HGB 12.1 gm/dL (11.4-16.0); Hypochromasia Slight; Luc # (Auto) 0.13; Luc % (Auto) 2; Lymphocytes # (A) 1.6 k/uL (1.0-4.8); Lymphocytes % (A) 26 %; MCH 27.2 pg (25.0-35.0); MCHC 31.8 g/dL (31.0-37.0); MCV 85.7 fL (80.0-100.0); Mean Platelet Volume 10.2; Monocytes # (A) 0.5 k/uL (0-1.0); Monocytes % (A) 8 %; Neutrophils # (A) 3.7 k/uL (1.3-7.7); Neutrophils % (A) 61 %; RBC 4.43 m/uL (3.80-5.40); WBC 6.1 k/uL (3.8-10.6); WBC (Perox) 6.11
[2016-12-09] MEDS: INSULIN LISPRO (humaLOG) 300 UNIT/3 ML VIAL SQ SCH ×4 (07:58→21:01)
[2016-12-09] MEDS: GLIMEPIRIDE 2 MG TAB PO SCH (08:11)
[2016-12-09] MEDS: FUROSEMIDE 40 MG TAB PO SCH ×2 (08:11→21:08)
[2016-12-09] MEDS: LOSARTAN 50 MG TAB PO SCH (08:12)
[2016-12-09] MEDS: DIVALPROEX ER 500 MG TAB.ER.24H PO SCH ×2 (08:12→21:08)
[2016-12-09] MEDS: amLODIPine 5 MG TAB PO SCH ×2 (08:12→21:08)
[2016-12-09] MEDS: FAMOTIDINE 20 MG TAB PO SCH (08:12)
[2016-12-09] MEDS: metFORMIN 500 MG TAB PO SCH ×3 (08:12→17:17)
[2016-12-09] MEDS: HEPARIN SODIUM,PORCINE 5,000 UNIT/ML 1 ML VIAL SQ SCH ×2 (08:12→21:08)
[2016-12-09] MEDS ORDERED: IMMUNE GLOBULIN (HUMAN-IGG) 5 GM in EMPTY BAG 1 BAG IV ONE (09:00)
[2016-12-09] MEDS ORDERED: IMMUNE GLOBULIN (HUMAN-IGG) 20 GM in EMPTY BAG 1 BAG IV ONE (10:00)
[2016-12-09 11:42] LABS: Glucose,Whole Blood 104 mg/dL (75-99)
[2016-12-09] MEDS: PRENATAL VIT-IRON-FOLIC ACID 1 EACH CAP PO SCH (12:14)
--- NOTE | 2016-12-09 13:08 | P.PN ---
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 Also was seen by physiatry and orthopedic for mild to moderate spinal stenosis of the lumbar spine did not require any surgery. Patient has been seen Dr. Marcus's last few month she apparently has been having significant decreased mobility with multiple fall abnormal balance and gait and worsening encephalopathy. Patient presented to the emergency department by a family late on 12/07/2016 not been able to ambulate and walk and severe weakness of the lower extremity becomes sudden that day. Patient was seen and evaluated her testing in the emergency room did not show initially any major abnormality. CAT scan of the brain showed no acute intracranial abnormality. 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 Dr. Mcdaniels was called to see patient in the emergency department and order IVIG after LP was ordered to be done for spinal fluid analysis. Patient was admitted to the hospital after her LP. Analysis of the spinal fluid to me looks negative for transfer myelitis but from Dr. Mcdaniels notes seems he still have suspicion for transfer myelitis and preferred to continue IVIG for total of 5 days. Attempt for physical therapy and ambulating patient today was not very successful but was able to stand with 2 people help ambulating very minimum at this point. Patient is laying in bed does not look in any pain or distress her interaction is very limited and was too sleepy at the time is seen her. I had long discussion with the family yesterday in was going on with the testing and lifted up to Dr. Mcdaniels to decide on the final with a trans- myelitis and the IVIG treatment which was still in a fall of his guide on this no family member at the bedside today with try to meet with the family again tomorrow. Objective - Vital Signs Vital signs: Vital Signs Temp 97.6 F 12/09/16 07:00 Pulse 73 12/09/16 07:00 Resp 16 12/09/16 07:00 BP 154/76 12/09/16 07:00 Pulse Ox 97 12/09/16 07:00 Intake & Output 12/08/16 12/09/16 12/09/16 18:59 06:59 18:59 Intake Total 57.75 Balance 57.75 Weight 107.955 kg 107.955 kg Intake: Intake, IV Titration 57.75 Amount Immune Globulin (Human- 57.75 IgG) 20 gm In Empty Bag 1 bag @ Titrate IV .Q0M ONE Rx#:[id number] Other: Voiding Method Bedside Commode Bedside Commode Bedside Commode Diaper Diaper Diaper # Voids 2 2 - Constitutional General appearance: Present: disheveled, no acute distress. Absent: average body habitus, cooperative, mild distress, morbidly obese, obese, severe distress , thin - EENT Eyes: Present: abnormal pupil. Absent: anicteric sclerae, disc margins sharp, edentulous, EOMI, PERRLA, fundus normal, photophobia, dentition normal, poor dentition, ptosis, scleral icterus, normal appearance ENT: Present: normal oropharynx. Absent: hard of hearing, hearing grossly normal, NA/AT, other, pharyngeal erythema, thrush, tonsillar exudates, tonsillar swelling Ears: bilateral: normal - Neck Neck: Present: normal ROM. Absent: lymphadenopathy, other, rigidity, stridor, thyromegaly Carotids: bilateral: upstroke normal Thyroid: bilateral: normal size - Respiratory Respiratory: bilateral: CTA, diminished, dullness - Cardiovascular Rhythm: regular Heart sounds: normal: S1, S2 Abnormal Heart Sounds: Present: systolic murmur - Gastrointestinal General gastrointestinal: Present: decreased bowel sounds, soft. Absent: absent bowel sounds, distended, hepatomegaly, hyperactive bowel sounds, normal bowel sounds, organomegaly, rigid, scaphoid, splenomegaly, tenderness, umbilical hernia, ventral hernia - Integumentary Integumentary: Present: normal, pale, rash. Absent: calor, cellulitis, cyanotic , decreased turgor, flushed, jaundiced, normal turgor, ulcer - Neurologic Neurologic Comment(s): Severe generalized weak not interacting well currently and nerve II-12 has minimal effect and the creatinine nerve VII on the left side, upper extremity are strong lower oximetry still weak more in the left side than the right side. Neurologic: Present: CNII-XII intact - Musculoskeletal Musculoskeletal: Present: generalized weakness, left sided weakness - Labs CBC & Chem 7: 12/09/16 06:34 12/09/16 06:34 Labs: Abnormal Lab Results - Last 24 Hours (Table) 12/08/16 12/08/16 12/09/16 Range/Units 17:26 20:13 06:34 Plt Count 147 L (150-450) k/uL Chloride (98-107) mmol/L POC Glucose (mg/dL) 104 H 173 H (75-99) mg/dL 12/09/16 12/09/16 Range/Units 06:34 11:33 Plt Count (150-450) k/uL Chloride 111 H (98-107) mmol/L POC Glucose (mg/dL) 104 H (75-99) mg/dL Microbiology - Last 24 Hours (Table) 12/07/16 17:15 CSF Gram Stain - Preliminary Cerebral Spinal Fluid CSF Culture - Preliminary Assessment and Plan Plan: 1 severe weakness of the lower extremity: 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 Mcdaniels cannot be on any steroid at this point with her recent reactive psychosis from steroid. 2 severe abnormal balance gait and mobility with known mild to moderate spinal stenosis [address] Estrada, MRI of the lumbar spine was order to see if there is any abnormality new or change compared to 2 years ago. 3 mild to moderate encephalopathy: Patient is doing better with her mentation but has not been back to normal completely since her acute psychosis from steroid. 4 giant cell arthritis: She was taking off steroids so far she was seen by Dr. Tatiana cosme in [facility] and manage till she was weaned off steroids. 5 diabetes: Patient remain on metformin 500 mg 2 in the morning when in the evening along with Amaryl 2 mg in a.m. 1 mg in p.m. still using Toujeo 12 unit to at bedtime and sliding scales as needed. 6 recent history of acute psychosis: Has been on Depakote CAD ER 500 mg twice a day. 7 chronic neuropathy: Has not been on any medication lately if can't tolerate gabapentin might be a good option and choice. 8 hypothyroidism: Continue levothyroxine 75 g daily. 9 hypertension: Remain on Norvasc 5 mg twice a day and losartan 100 mg daily. 10 Friday elevated creatinine: With GFR still normal at this point with no sign of chronic kidney disease. 11 GI prophylaxis: Patient will be on hep Synthroid 20 mg daily. 12 DVT prophylaxis: Patient will be on heparin 5000 units obtain his twice a day. Next CODE STATUS: Full code. Still continue treatment with IVIG, by tomorrow if family prefer to transfer patient to [facility] will help to transfer her to Tertiary center.
--- NOTE | 2016-12-09 14:05 | P.PN ---
Subjective This patient is a 71-year-old right-handed -Martiniquais female who was admitted to hospital yesterday with complaint of severe bilateral leg weakness present further 2 days prior to her admission. Apparently prior to this she had been ambulating at home very easily. She suddenly became quite severe in the bilateral leg weakness. Her daughter was noticing this significant change and decided to bring her to the emergency room for further evaluation yesterday. She was seen in the ER by Dr. Henson. It was recommended for her to undergo a lumbar puncture for further evaluation and Dr. Henson attempted this in the ER. He tried 3 times and was unsuccessful. Anesthesia was consulted and they were able to obtain spinal fluid. Her spinal fluid analysis from yesterday came back revealing CSF protein of 69 and slightly elevated. CSF glucose was 59. CSF cell count in tube 2 containing 0 RBCs and 0 WBCs. 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 She was started on IVIG and is tolerating this quite well. We would recommend she continue on IVIG daily for 5 days. Physical therapy is also been consulted and we will await their assessment. Patient states she was able to ambulate to the bathroom with assistance earlier this morning. She feels there may be slight improvement in her lower extremity strength. Patient is sitting in her chair at bedside and really shows improvement in her leg strength this morning. She is able to lift her legs easily off of the ground which she could not do 2 days ago. Patient's neurological examination continues to reveal areflexia in both lower extremities. Patient also feels improvement with overall strength in the legs today as compared to yesterday. She was able to stand today and walk to the bathroom with nursing assistance. Patient is completed day 2 of IVIG therapy today. She seems to be tolerating the immunoglobulin therapy quite well. She is not yet had her MRI of the lumbar spine. We have recommended a MRI of the lumbar spine to be done and we are awaiting this to be scheduled for her for further evaluation of her known history of chronic low back pain. Her previous MRI of the lumbar spine was done over 2 years ago. Depending on this MRI result we will consider reevaluation by orthopedic spine surgery as she has seen Dr. Pasia in the past. Would recommend further follow- up to rule out any acute lumbar disc disease contributing to her lower extremity weakness. Dr. Johnston has talked to the patient's daughter and there may be some thought of possibly transferring this patient to a tertiary center such as [facility]. Dr. Johnston will discuss this again with the family members tomorrow. In the meantime she should continue with current treatment plans. Her overall prognosis at this time remains guarded. Objective - Vital Signs Vital signs: Vital Signs Temp 97.6 F 12/09/16 07:00 Pulse 73 12/09/16 07:00 Resp 16 12/09/16 07:00 BP 154/76 12/09/16 07:00 Pulse Ox 97 12/09/16 07:00 Intake & Output 12/08/16 12/09/16 12/09/16 18:59 06:59 18:59 Intake Total 57.75 Balance 57.75 Weight 107.955 kg 107.955 kg Intake: Intake, IV Titration 57.75 Amount Immune Globulin (Human- 57.75 IgG) 20 gm In Empty Bag 1 bag @ Titrate IV .Q0M ONE Rx#:[id number] Other: Voiding Method Bedside Commode Bedside Commode Bedside Commode Diaper Diaper Diaper # Voids 2 2 - Exam Physical examination: PHYSICAL EXAMINATION: Patient is resting comfortably and is sitting up in chair at bedside. VITAL SIGNS: Blood pressure is [154/76]. Heart rate is [73]. Respiration is [16] . Temperature is [97.7]. HEENT: Head is atraumatic, neck is supple, there were no carotid bruits. CHEST: Lungs are clear to auscultation and percussion. CARDIAC: S1, S2 normal rate and rhythm. There is no murmur. ABDOMEN: Soft and nontender. Bowel sounds are present. EXTREMITIES: There is no pedal edema. Peripheral pulses are present. Neurological examination: Patient's neurological examination is stable on examination today. She remains areflexic in the lower extremities. Muscle strength is improved in the lower extremities today. Patient is able to lift both legs to 90 from the knee which she was unable to do on initial evaluation 2 days ago. Patient was able to stand and take steps with nurse assistance. She was able to walk to bathroom with nursing assistance today. Muscle strength in the upper extremities is 4/5. Lower extremity strength proximal is 3/5 with a proximal to distal gradient. Plantar responses flexor bilaterally. - Labs CBC & Chem 7: 12/09/16 06:34 12/09/16 06:34 Labs: Abnormal Lab Results - Last 24 Hours (Table) 12/08/16 12/08/16 12/09/16 Range/Units 17:26 20:13 06:34 Plt Count 147 L (150-450) k/uL Chloride (98-107) mmol/L POC Glucose (mg/dL) 104 H 173 H (75-99) mg/dL 12/09/16 12/09/16 Range/Units 06:34 11:33 Plt Count (150-450) k/uL Chloride 111 H (98-107) mmol/L POC Glucose (mg/dL) 104 H (75-99) mg/dL Microbiology - Last 24 Hours (Table) 12/07/16 17:15 CSF Gram Stain - Preliminary Cerebral Spinal Fluid CSF Culture - Preliminary Assessment and Plan (1) Acute inflammatory demyelinating polyneuropathy Status: Acute Code(s): G37.8 - OTH DEMYELINATING DISEASES OF CENTRAL NERVOUS SYSTEM (2) Lumbar disc disease with radiculopathy Status: Acute Code(s): M51.16 - INTERVERTEBRAL DISC DISORDERS W RADICULOPATHY , LUMBAR REGION (3) Diabetes mellitus Status: Acute Code(s): E11.9 - TYPE 2 DIABETES MELLITUS WITHOUT COMPLICATIONS (4) Leg weakness Status: Acute Code(s): R29.898 - OT SYMPTOMS AND SIGNS INVOLVING THE MUSCULOSKELETAL SYSTEM Plan: This patient is a 71-year-old right-handed female was being evaluated for acute onset of bilateral lower extremity leg weakness. Symptoms progressed very quickly at home over 48 hours according to the daughter who provided the medical history on admission. She was unable to stand or walk. There was concern for possibility of acute demyelinating polyneuropathy. She underwent a lumbar puncture which came back abnormal with slightly elevated protein. The patient was areflexic in the lower extremities. Given the sudden weakness and sudden onset of her symptoms it was felt she may have early stage Guillain-Beaver syndrome. She was started on IVIG and is currently completed day 2 of IVIG therapy. We will continue immunotherapy for a total of 5 days. Patient is shown some improvement today in the lower extremity strength. This was clearly improvement from 2 days prior. We're waiting MRI of the lumbar spine to be done for further evaluation of her known history of chronic low back pain and arthritic changes in the lumbar spine. Previous MRI of the lumbar spine was done over 2 years ago. The admitting physician Dr. Johnston has discussed with the patient's daughter possibility of transfer to a tertiary center. We will await their further input tomorrow regarding further treatment plans. If the patient is transferred to a tertiary center she may benefit from EMG study which may be more definitive in diagnosing acute demyelinating polyneuropathy. She does have overlapping history of severe polyneuropathy from diabetes mellitus. However this sudden weakness in 48 hours and inability to walk suggests more of an acute process such as AIDP. In the meantime we will continue with IVIG therapy and will continue close monitoring with PT/OT evaluation. Case was discussed at length with the patient today at bedside. She was sitting up in her chair and does seem to be noticing improvement in terms of lower extremity muscle strength since admission to the hospital. We will continue close neurological follow-up of this patient during this admission.
[2016-12-09 17:11] LABS: Glucose,Whole Blood 74 mg/dL (75-99)
[2016-12-09] MEDS: GLIMEPIRIDE 1 MG TAB PO SCH (17:17)
[2016-12-09 20:27] LABS: Glucose,Whole Blood 79 mg/dL (75-99)
[2016-12-09] MEDS: INSULIN GLARGINE 100 UNIT/ML 10 ML VIAL SQ SCH (21:08)
[2016-12-10] MEDS: LEVOTHYROXINE 75 MCG TAB PO SCH (06:18)
[2016-12-10 07:26] LABS: Basophils % (A) 0 %; CH 27.1; CHCM 31.3; Eosinophils # (A) 0.1 k/uL (0-0.7); Eosinophils % (A) 1 %; HCT 39.4 % (34.0-46.0); HDW 2.58; HGB 12.4 gm/dL (11.4-16.0); Hypochromasia Slight; Luc # (Auto) 0.17; Luc % (Auto) 3; Lymphocytes # (A) 1.1 k/uL (1.0-4.8); Lymphocytes % (A) 21 %; MCH 27.2 pg (25.0-35.0); MCHC 31.4 g/dL (31.0-37.0); MCV 86.7 fL (80.0-100.0); Mean Platelet Volume 7.1; Monocytes # (A) 0.4 k/uL (0-1.0); Monocytes % (A) 8 %; Neutrophils # (A) 3.4 k/uL (1.3-7.7); Neutrophils % (A) 67 %; RBC 4.55 m/uL (3.80-5.40); RDW 13.8 % (11.5-15.5); WBC 5.1 k/uL (3.8-10.6); WBC (Perox) 5.05
[2016-12-10 07:29] LABS: Glucose,Whole Blood 111 mg/dL (75-99)
[2016-12-10 07:35] LABS: ALT 32 U/L (9-52); AST 28 U/L (14-36); Alkaline Phosphatase 64 U/L (38-126); Anion Gap 10 mmol/L; Blood Urea Nitrogen 12 mg/dL (7-17); Calcium 8.8 mg/dL (8.4-10.2); Carbon Dioxide 27 mmol/L (22-30); Chloride 106 mmol/L (98-107); Glucose 117 mg/dL (74-99); Non-African American GFR(MDRD) 56 (>60 ml/min/1.73 sqM); Potassium 3.3 mmol/L (3.5-5.1); Sodium 143 mmol/L (137-145); Total Bilirubin 0.5 mg/dL (0.2-1.3); Total Protein 8.6 g/dL (6.3-8.2)
[2016-12-10] MEDS: GLIMEPIRIDE 2 MG TAB PO SCH (08:47)
[2016-12-10] MEDS: amLODIPine 5 MG TAB PO SCH (08:49)
[2016-12-10] MEDS: DIVALPROEX ER 500 MG TAB.ER.24H PO SCH (08:49)
[2016-12-10] MEDS: HEPARIN SODIUM,PORCINE 5,000 UNIT/ML 1 ML VIAL SQ SCH (08:50)
[2016-12-10] MEDS: LOSARTAN 50 MG TAB PO SCH (08:50)
[2016-12-10] MEDS: FAMOTIDINE 20 MG TAB PO SCH (08:51)
[2016-12-10] MEDS: FUROSEMIDE 40 MG TAB PO SCH (08:51)
[2016-12-10] MEDS: metFORMIN 500 MG TAB PO SCH ×2 (08:52→14:22)
[2016-12-10] MEDS: SODIUM CHLORIDE 0.9% 1,000 ML IV SCH (08:53)
[2016-12-10] MEDS: INSULIN LISPRO (humaLOG) 300 UNIT/3 ML VIAL SQ SCH ×2 (08:53→11:56)
[2016-12-10] MEDS ORDERED: IMMUNE GLOBULIN (HUMAN-IGG) 5 GM in EMPTY BAG 1 BAG IV ONE (09:00)
[2016-12-10 09:45] VITALS: BP 158/83; PULSE 90; TEMP 100.1
[2016-12-10] MEDS ORDERED: IMMUNE GLOBULIN (HUMAN-IGG) 20 GM in EMPTY BAG 1 BAG IV ONE (10:00)
--- NOTE | 2016-12-10 10:24 | EEG ---
DATE OF SERVICE: 12/09/2016 INDICATIONS FOR EXAMINATION: This patient is a 71-year-old female being evaluated for bilateral leg weakness and difficulty with ambulation of sudden onset. Patient being evaluated for possibility of Guillain-Merino syndrome. The patient also with a history of steroid-induced psychosis with memory loss. AGE: 71Y EEG FINDINGS: A routine 21-channel, awake digital EEG recording was accomplished utilizing the 10 to 20 international system with bipolar and referential montages. The background activity in the most alert resting state consists of a low to medium amplitude, fairly well-developed and well-sustained 5 to 6 Hz activity over the posterior head regions. This posterior rhythm attenuates to eye opening. There is a small amount of low amplitude 18 to 20 Hz beta activity seen maximally over the anterior head regions. Muscle and movement artifact was observed on a few occasions during the tracing. Hyperventilation was not performed. Photic stimulation at flash frequencies of 2 to 30 Hz produced a minimal occipital driving response. Towards the mid and latter portion of the tracing, the patient does drift into spontaneous drowsiness. No epileptiform discharges were seen. IMPRESSION: This EEG is moderately abnormal in diffuse fashion due to slowing of the EEG background. The EEG failed to reveal any focal, lateralized or epileptiform abnormalities. Clinical correlation is recommended.
--- NOTE | 2016-12-10 11:15 | MR ---
EXAMINATION TYPE: MR lumbar spine wo con DATE OF EXAM: 12/10/2016 COMPARISON: Plain film 08/08/2016 HISTORY: Patient with bilateral leg weakness and back pain TECHNIQUE: Multiplanar, multisequence images of the lumbar spine were acquired. L1-L2: Normal disc appearance without desiccation. No herniation, protrusion or disc bulging. No ca nal stenosis is present. Foramina are patent bilaterally. L2-L3: Normal disc appearance without desiccation. No herniation, protrusion or disc bulging. No ca nal stenosis is present. Foramina are patent bilaterally. L3-L4: Normal disc appearance without desiccation. No herniation, protrusion or disc bulging. No ca nal stenosis is present. Foramina are patent bilaterally. L4-L5: Posterior broad-based disc bulge effaces the anterior thecal sac. There is facet arthropathy w ith hypertrophy of the ligamentum flavum encroaching on the lateral recesses. No significant foramina l encroachment or central stenosis. L5-S1: Circumferential extension of broad-based disc bulge causes some foraminal encroachment right g reater than left, there is no significant central stenosis. Lumbar segments are intact. No paraspinal masses are identified. Conus medullaris has a normal appe arance. Lumbar vertebral bodies show preserved height and alignment. Multilevel spondylosis is presen t, there is endplate discogenic marrow signal change. This spaces are relatively maintained. Probable hemangioma present within the L1 vertebral body. IMPRESSION: Degenerative disc disease as described.
[2016-12-10 11:51] LABS: Glucose,Whole Blood 78 mg/dL (75-99)
[2016-12-10] MEDS: PRENATAL VIT-IRON-FOLIC ACID 1 EACH CAP PO SCH (14:22)
[2016-12-11 02:27] LABS: Lyme Specimen Source Not Provided
[2016-12-11] MEDS ORDERED: IMMUNE GLOBULIN (HUMAN-IGG) 5 GM in EMPTY BAG 1 BAG IV ONE (09:00)
[2016-12-11] MEDS ORDERED: IMMUNE GLOBULIN (HUMAN-IGG) 20 GM in EMPTY BAG 1 BAG IV ONE (10:00)
[2016-12-12] MEDS ORDERED: IMMUNE GLOBULIN (HUMAN-IGG) 5 GM in EMPTY BAG 1 BAG IV ONE (09:00)
[2016-12-12] MEDS ORDERED: IMMUNE GLOBULIN (HUMAN-IGG) 20 GM in EMPTY BAG 1 BAG IV ONE (10:00)
--- NOTE | 2016-12-15 10:32 | P.DS ---
Providers Date of admission: 12/07/16 17:57 Expected date of discharge: 12/10/16 Attending physician: Cong Johnston Consults: 12/07/16 17:55 Consult Physician Urgent Consulting Provider: Rip Sims Consult Reason/Comments: Lumbar puncture Do you want consulting provider notified?: Yes 12/07/16 17:57 Consult Physician Urgent Consulting Provider: Portia Mcdaniels Consult Reason/Comments: weakness Do you want consulting provider notified?: Already Contacted Primary care physician: Evelin Marcus [place] Course: 71-year-old female with known for long time known to have history of diabetes, hypertension, hyperlipidemia, neuropathy, atherosclerotic heart disease and 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 Also was seen by physiatry and orthopedic for mild to moderate spinal stenosis of the lumbar spine did not require any surgery. Patient has been seen Dr. Mracus's last few month she apparently has been having significant decreased mobility with multiple fall abnormal balance and gait and worsening encephalopathy. Patient presented to the emergency department by a family late on 12/07/2016 not been able to ambulate and walk and severe weakness of the lower extremity becomes sudden that day. Patient was seen and evaluated her testing in the emergency room did not show initially any major abnormality. CAT scan of the brain showed no acute intracranial abnormality. 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 Dr. Mcdaniels was called to see patient in the emergency department and order IVIG after LP was ordered to be done for spinal fluid analysis. Patient was admitted to the hospital after her LP. Analysis of the spinal fluid to me looks negative for transfer myelitis but from Dr. Mcdaniels notes seems he still have suspicion for transfer myelitis and preferred to continue IVIG for total of 5 days. Attempt for physical therapy and ambulating patient today was not very successful but was able to stand with 2 people help ambulating very minimum at this point. Patient is laying in bed does not look in any pain or distress her interaction is very limited and was too sleepy at the time is seen her. I had long discussion with the family yesterday in was going on with the testing and lifted up to Dr. Mcdaniels to decide on the final with a trans- myelitis and the IVIG treatment which was still in a fall of his guide on this no family member at the bedside today with try to meet with the family again tomorrow. 12/10: MRI of the lumbar spine showed degenerative disc disease. Dr. Mcdaniels continues to follow with concern for early [place] Beaver syndrome and patient was started on IVIG. There is also concern for acute demyelinating polyneuropathy and he has recommended transfer to tertiary center. Discussed with the patient and family and it was agreed the patient will be transferred to [facility] which will be arranged today. 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 Estrada, 3 metabolic encephalopathy 4 giant cell arthritis: She was taken off steroids, seen by Dr. Tatiana cosme in [facility] 5 diabetes mellitus type II 6 recent history of acute psychosis 7 chronic neuropathy 8 hypothyroidism 9 hypertension 10 no sign of chronic kidney disease. Impression and plan of care have been directed as dictated by the signing physician. Iona Prajapati nurse practitioner acting as scribe for signing physician. Patient Condition at Discharge: Stable Plan - Discharge Summary New Discharge Prescriptions: No Action metFORMIN HCL [Glucophage] 500 mg PO BID amLODIPine [Norvasc] 5 mg PO BID Losartan Potassium 100 mg PO QAM Glimepiride [Amaryl] 2 mg PO W/BRKFST Ergocalciferol [Vitamin D2 (DRISDOL)] 50,000 unit PO Q14D Ibuprofen [Motrin] 800 mg PO Q8HR PRN PRN Reason: Mild To Moderate Pain Levothyroxine Sodium [Synthroid] 75 mcg PO QAM metFORMIN HCL [Metformin HCl] 1,000 mg PO AC-BRKFST Glimepiride [Amaryl] 1 mg PO W/SUPPER Furosemide [Lasix] 40 mg PO BID Divalproex Sodium [Depakote ER] 500 mg PO BID Wmr-Wuuz-Bzsed Acid [-U Capsule (formulary)] 1 cap PO QAM Insulin Glargine,Hum.rec.anlog [Hussain Guerrero] 12 units SQ HS Discharge Medication List Glimepiride [Amaryl] 2 mg PO W/BRKFST 05/14/16 [History] Losartan Potassium 100 mg PO QAM 05/14/16 [History] amLODIPine [Norvasc] 5 mg PO BID 05/14/16 [History] metFORMIN HCL [Glucophage] 500 mg PO BID 05/14/16 [History] Ergocalciferol [Vitamin D2 (DRISDOL)] 50,000 unit PO Q14D 07/26/16 [History] Ibuprofen [Motrin] 800 mg PO Q8HR PRN 07/27/16 [History] Divalproex Sodium [Depakote ER] 500 mg PO BID 12/07/16 [History] Furosemide [Lasix] 40 mg PO BID 12/07/16 [History] Glimepiride [Amaryl] 1 mg PO W/SUPPER 12/07/16 [History] Insulin Glargine,Hum.rec.anlog [Toujeo Solostar] 12 units SQ HS 12/07/16 [ History] Levothyroxine Sodium [Synthroid] 75 mcg PO QAM 12/07/16 [History] Thc-Wzdf-Asxoq Acid [-U Capsule (formulary)] 1 cap PO QAM 12/07 [History] metFORMIN HCL [Metformin HCl] 1,000 mg PO AC-BRKFST 12/07/16 [History] Follow up Appointment(s)/Referral(s): Evelin Marcus MD [Primary Care Provider] - 1-2 days Discharge Disposition: TRANSFER TO SHORT TERM HOSP
[2016-12-17] MEDS ORDERED: ERGOCALCIFEROL 50,000 UNIT CAP PO SCH (12:00)
== END 2016-12-10 15:15 | disposition short-term general hospital (02) | DRG 94 ==
LOC: EC 15:14 → 5MS5E 17:57
PROVIDERS: ADMIT Internal Medicine Geriatric Medicine; ATTEND Internal Medicine Geriatric Medicine
PROC: 009U3ZX Drainage of Spinal Canal, Percutaneous Approach, Diagnostic (ICD-10-PCS; principal; 2016-12-07)
DX: G61.0 Guillain-Barre syndrome (principal); G93.40 Encephalopathy, unspecified; E11.40 Type 2 diabetes mellitus with diabetic neuropathy, unspecified; F03.90 Unspecified dementia, unspecified severity, without behavioral disturbance, psychotic disturbance, mood disturbance, and anxiety; M31.6 Other giant cell arteritis; M51.16 Intervertebral disc disorders with radiculopathy, lumbar region; M19.91 Primary osteoarthritis, unspecified site; E03.9 Hypothyroidism, unspecified; I10 Essential (primary) hypertension; E78.5 Hyperlipidemia, unspecified; I25.10 Atherosclerotic heart disease of native coronary artery without angina pectoris; M48.06 Spinal stenosis, lumbar region; G89.29 Other chronic pain; Z79.4 Long term (current) use of insulin; Z79.84 Long term (current) use of oral hypoglycemic drugs; Z79.899 Other long term (current) drug therapy
CPT/HCPCS: 36415; 62270; 70450; 71020; 72148; 80053; 80061; 81003; 82550; 82553; 82945; 83036; 83735; 84100; 84157; 84439; 84443; 84481; 84484; 85025; 85610; 85730; 87070; 87205; 87476; 88108; 89050; 93005; 93306; 93880; 95819; 99285

== ENCOUNTER 2017-02-18 19:41 | Inpatient (IN) | payer MEDICARE ==
[2017-02-18] MEDS ORDERED: SODIUM CHLORIDE 0.9% 1,000 ML IV STA (20:33)
[2017-02-18 20:59] LABS: Basophils % (A) 0 %; CH 27.8; CHCM 32.1; Eosinophils # (A) 0.1 k/uL (0-0.7); Eosinophils % (A) 1 %; HCT 40.2 % (34.0-46.0); HDW 2.51; HGB 13.3 gm/dL (11.4-16.0); Luc % (Auto) 3; Lymphocytes # (A) 1.4 k/uL (1.0-4.8); Lymphocytes % (A) 18 %; MCH 28.8 pg (25.0-35.0); MCHC 33.1 g/dL (31.0-37.0); MCV 86.8 fL (80.0-100.0); Mean Platelet Volume 7.3; Monocytes # (A) 0.4 k/uL (0-1.0); Monocytes % (A) 5 %; Neutrophils # (A) 5.8 k/uL (1.3-7.7); Neutrophils % (A) 73 %; RBC 4.63 m/uL (3.80-5.40); RDW 14.2 % (11.5-15.5); WBC 7.9 k/uL (3.8-10.6); WBC (Perox) 8.14
[2017-02-18 21:10] LABS: AST 15 U/L (14-36); Alkaline Phosphatase 81 U/L (38-126); Anion Gap 12 mmol/L; Blood Urea Nitrogen 18 mg/dL (7-17); Calcium 9.4 mg/dL (8.4-10.2); Carbon Dioxide 26 mmol/L (22-30); Chloride 100 mmol/L (98-107); Glucose 175 mg/dL (74-99); Non-African American GFR(MDRD) 52 (>60 ml/min/1.73 sqM); Potassium 3.8 mmol/L (3.5-5.1); Sodium 138 mmol/L (137-145); Total Bilirubin 0.6 mg/dL (0.2-1.3); Total Protein 7.5 g/dL (6.3-8.2)
[2017-02-18 21:16] LABS: ALT 16 U/L (9-52); Prothrombin Time 10.3 sec (9.0-12.0)
--- NOTE | 2017-02-18 21:18 | CT ---
EXAMINATION TYPE: CT brain wo con DATE OF EXAM: 02/18/2017 COMPARISON: 12/07/2016 HISTORY: Possible seizure, shaking. CT DLP: 1020.30 mGycm. Automated Exposure Control for Dose Reduction was Utilized. TECHNIQUE: CT scan of the head is performed without contrast. FINDINGS: There is no acute intracranial hemorrhage or midline shift identified. There is diffuse v entricular and sulcal prominence consistent with diffuse age-related cerebral atrophy. There conflue nt areas of low-attenuation in the periventricular white matter consistent with chronic small vessel ischemic change. The globes are intact and the visualized sinuses are clear. Atherosclerosis is no christen in the intracranial vasculature. IMPRESSION: No acute intracranial hemorrhage or midline shift. There is diffuse age-related cerebra l atrophy and chronic small vessel ischemic change noted.
--- NOTE | 2017-02-18 21:24 | XR ---
EXAMINATION TYPE: XR chest 2V DATE OF EXAM: 02/18/2017 COMPARISON: NONE HISTORY: Seizure, hypertension, and history of stroke. Chest pain. TECHNIQUE: Frontal and lateral views of the chest are obtained. FINDINGS: Low lung volumes accentuating the pulmonary vasculature increased relative cardiomegaly. L ateral image is suboptimal. There is no focal air space opacity, pleural effusion, or pneumothorax se en. The cardiac silhouette size is within normal limits. The osseous structures are intact. IMPRESSION: Suboptimal lateral image and inspiratory effort, however there is no gross evidence for acute cardiopulmonary process.
[2017-02-18 21:28] LABS: Partial Thromboplastin Time 18.4 sec (22.0-30.0)
[2017-02-18 21:32] LABS: Creatine Kinase MB 0.9 ng/mL (0.0-2.4); Troponin I 0.021 ng/mL (0.000-0.034)
[2017-02-18 22:06] LABS: Amorphous Sediment,Urine Rare /hpf; Appearance,Urine Cloudy (Clear); Bilirubin,Urine Negative (Negative); Glucose,Urine (UA) Negative (Negative); Ketones,Urine 2+ (Negative); Leukocyte Esterase,Urine Negative (Negative); Mucus,Urine Rare /hpf; Nitrite,Urine Negative (Negative); PH, Urine 5.5 (5.0-8.0); Particle Count 13599; Protein,Urine 1+ (Negative); RBC,Urine <1 /hpf (0-5); Specific Gravity,Urine 1.019 (1.001-1.035); UA Billing (MACRO vs. MICRO) MICRO; Urobilinogen,Urine <2.0 mg/dL (<2.0); WBC,Urine 1 /hpf (0-5)
--- NOTE | 2017-02-18 23:18 | ED ---
Neuro HPI - General Chief Complaint: Neuro Symptoms/Deficit Stated Complaint: poss seizure Time Seen by Provider: 02/18/17 20:33 Source: EMS Mode of arrival: EMS Limitations: language barrier, altered mental status - History of Present Illness Is the patient presenting with stroke symptoms?: No Initial Comments: 21 years old female resident of [facility] WAS FEEDING AROUND 6:30 AND HE NOTICED THAT SHE HAD A SEIZURE-LIKE ACTIVITY OR BODY WAS SHAKING, SHE DOES HAVE A HISTORY OF P[facility]IN[facility]'S AND SHE DOES HAVE A TREMOR OF THE UPPER EXTREMITY WHICH HE SAID HE NEVER SEEN HER HOME SHAKING OR BODY. CONTINUED FOR WALL MADE HIM VERY NERVOUS AND IS ASSOCIATED (ER ON ARRIVAL SHE WAS QUITE CONFUSED SHE WAS NOT ABLE TO ANSWER ANY QUESTION SHE SEEMED LIKE SHE WAS POSTICTAL STATE. WHILE ABOUT 20 MINUTES LATER SHE HAD A CLEAR MENTATION SHE WAS ABLE TO ANSWER QUESTIONS APPROPRIATELY AT THAT POINT SHE HAS NO HEADACHE NO CHEST PAIN NO SHORTNESS OF BREATH NO ABDOMINAL PAIN NO FREQUENCY URGENCY DYSURIA - Related Data Home Medications: Home Medications Medication Instructions Recorded Confirmed Levothyroxine Sodium [Synthroid] 75 mcg PO QAM 12/07/16 02/18/17 Acetaminophen Tab [Tylenol Tab] 650 mg PO Q4H PRN 02/18/17 02/18/17 Aspirin 81 mg PO DAILY 02/18/17 02/18/17 Carbidopa-Levodopa 25-100 mg 2 tab PO TID 02/18/17 02/18/17 [Sinemet 25-100] Clopidogrel [Plavix] 75 mg PO DAILY 02/18/17 02/18/17 Cyanocobalamin [Vitamin B-12] 500 mcg PO DAILY 02/18/17 02/18/17 Diclofenac Sodium [Voltaren Gel] 4 gram TOPICAL TID PRN 02/18/17 02/18/17 Divalproex [Depakote] 250 mg PO BID 02/18/17 02/18/17 Gabapentin [Neurontin] 100 mg PO BID@1700,2100 02/18/17 02/18/17 Glimepiride [Amaryl] 4 mg PO BID@0900,1700 02/18/17 02/18/17 HYDROcodone/APAP 5-325MG [[place] 1 tab PO TID PRN 02/18/17 02/18/17 5-325] Hydrocortisone 5 mg PO DAILY@1700 02/18/17 02/18/17 Hydrocortisone [Cortef] 15 mg PO DAILY@0900 02/18/17 02/18/17 Liothyronine Sodium [Cytomel] 5 mcg PO DAILY 02/18/17 02/18/17 Melatonin 6 mg PO HS 02/18/17 02/18/17 Omeprazole [PriLOSEC] 20 mg PO DAILY 02/18/17 02/18/17 Sennosides-Docusate Sodium 1 tab PO DAILY 02/18/17 02/18/17 [Senokot-S] Valsartan 320 mg PO DAILY 02/18/17 02/18/17 hydrALAZINE HCL [Hydralazine HCl] 75 mg PO TID 02/18/17 02/18/17 metFORMIN HCL 1,000 mg PO BID 02/18/17 02/18/17 predniSONE 5 mg PO DAILY 02/18/17 02/18/17 Allergies/Adverse Reactions: Allergies Allergy/AdvReac Type Severity Reaction Status Date / Time codeine AdvReac Nausea & Verified 02/18/17 19:56 Vomiting morphine AdvReac Nausea & Verified 02/18/17 19:56 Vomiting Review of Systems ROS Statement: Those systems with pertinent positive or pertinent negative responses have been documented in the HPI. ROS Other: All systems not noted in ROS Statement are negative. General Exam - General Exam Comments Initial Comments: General: The patient is awake and alert, in no distress, and does not appear acutely ill. She is bit slow to answer the questions but GCS is 15 Skin: Skin is warm and dry and no rashes or lesions are noted. Eye: Pupils are equal, round and reactive to light, extra-ocular movements are intact; there is normal conjunctiva bilaterally. Ears, nose, mouth and throat: There are moist mucous membranes and no oral lesions. Neck: The neck is supple, there is no tenderness or JVD. Cardiovascular: There is a regular rate and rhythm. No murmur, rub or gallop is appreciated. Respiratory: To auscultation bilateral, decreased breath sounds bilaterally Gastrointestinal: Soft, non-distended, non-tender abdomen without masses or organomegaly noted. There is no rebound or guarding present. Bowel sounds are unremarkable. Back: There is no tenderness to palpation in the midline. There is no obvious deformity. Musculoskeletal: Normal ROM, no tenderness, There is no pedal edema. There is no calf tenderness or swelling. No cords were appreciated. Neurological: CN II-XII intact, Cranial nerves III through XII are intact. There are no obvious motor or sensory deficits. Coordination appears grossly intact. Speech is normal. Psychiatric: Cooperative, appropriate mood & affect, normal judgment. Limitations: language barrier, altered mental status Stroke MDM - Lab Data Result diagrams: 02/18/17 20:45 02/18/17 20:45 Lab Results 02/18/17 02/18/17 02/18/17 Range/Units 20:45 20:45 20:45 WBC 7.9 (3.8-10.6) k/uL RBC 4.63 (3.80-5.40) m/uL Hgb 13.3 (11.4-16.0) gm/dL Hct 40.2 (34.0-46.0) % MCV 86.8 (80.0-100.0) fL MCH 28.8 (25.0-35.0) pg MCHC 33.1 (31.0-37.0) g/dL RDW 14.2 (11.5-15.5) % Plt Count 195 (150-450) k/uL Neutrophils % 73 % Lymphocytes % 18 % Monocytes % 5 % Eosinophils % 1 % Basophils % 0 % Neutrophils # 5.8 (1.3-7.7) k/uL Lymphocytes # 1.4 (1.0-4.8) k/uL Monocytes # 0.4 (0-1.0) k/uL Eosinophils # 0.1 (0-0.7) k/uL Basophils # 0.0 (0-0.2) k/uL PT (9.0-12.0) sec INR (<1.2) APTT (22.0-30.0) sec Sodium 138 (137-145) mmol/L Potassium 3.8 (3.5-5.1) mmol/L Chloride 100 (98-107) mmol/L Carbon Dioxide 26 (22-30) mmol/L Anion Gap 12 mmol/L BUN 18 H (7-17) mg/dL Creatinine 1.05 H (0.52-1.04) mg/dL Est GFR (MDRD) Af Amer >60 (>60 ml/min/1.73 sqM) Est GFR (MDRD) Non-Af 52 (>60 ml/min/1.73 sqM) Glucose 175 H (74-99) mg/dL Calcium 9.4 (8.4-10.2) mg/dL Total Bilirubin 0.6 (0.2-1.3) mg/dL AST 15 (14-36) U/L ALT 16 (9-52) U/L Alkaline Phosphatase 81 (38-126) U/L Total Creatine Kinase 31 (30-135) U/L CK-MB (CK-2) 0.9 (0.0-2.4) ng/mL CK-MB (CK-2) Rel Index 2.9 Troponin I 0.021 (0.000-0.034) ng/mL Total Protein 7.5 (6.3-8.2) g/dL Albumin 4.0 (3.5-5.0) g/dL Urine Color Urine Appearance (Clear) Urine pH (5.0-8.0) Ur Specific [place] (1.001-1.035) Urine Protein (Negative) Urine Glucose (UA) (Negative) Urine Ketones (Negative) Urine Blood (Negative) Urine Nitrite (Negative) Urine Bilirubin (Negative) Urine Urobilinogen (<2.0) mg/dL Ur Leukocyte Esterase (Negative) Urine RBC (0-5) /hpf Urine WBC (0-5) /hpf Amorphous Sediment (None) /hpf Hyaline Casts (0-2) /lpf Urine Mucus (None) /hpf 02/18/17 02/18/17 Range/Units 20:45 21:45 WBC (3.8-10.6) k/uL RBC (3.80-5.40) m/uL Hgb (11.4-16.0) gm/dL Hct (34.0-46.0) % MCV (80.0-100.0) fL MCH (25.0-35.0) pg MCHC (31.0-37.0) g/dL RDW (11.5-15.5) % Plt Count (150-450) k/uL Neutrophils % % Lymphocytes % % Monocytes % % Eosinophils % % Basophils % % Neutrophils # (1.3-7.7) k/uL Lymphocytes # (1.0-4.8) k/uL Monocytes # (0-1.0) k/uL Eosinophils # (0-0.7) k/uL Basophils # (0-0.2) k/uL PT 10.3 (9.0-12.0) sec INR 1.0 (<1.2) APTT 18.4 L (22.0-30.0) sec Sodium (137-145) mmol/L Potassium (3.5-5.1) mmol/L Chloride (98-107) mmol/L Carbon Dioxide (22-30) mmol/L Anion Gap mmol/L BUN (7-17) mg/dL Creatinine (0.52-1.04) mg/dL Est GFR (MDRD) Af Amer (>60 ml/min/1.73 sqM) Est GFR (MDRD) Non-Af (>60 ml/min/1.73 sqM) Glucose (74-99) mg/dL Calcium (8.4-10.2) mg/dL Total Bilirubin (0.2-1.3) mg/dL AST (14-36) U/L ALT (9-52) U/L Alkaline Phosphatase (38-126) U/L Total Creatine Kinase (30-135) U/L CK-MB (CK-2) (0.0-2.4) ng/mL CK-MB (CK-2) Rel Index Troponin I (0.000-0.034) ng/mL Total Protein (6.3-8.2) g/dL Albumin (3.5-5.0) g/dL Urine Color Yellow Urine Appearance Cloudy H (Clear) Urine pH 5.5 (5.0-8.0) Ur Specific [place] 1.019 (1.001-1.035) Urine Protein 1+ H (Negative) Urine Glucose (UA) Negative (Negative) Urine Ketones 2+ H (Negative) Urine Blood Negative (Negative) Urine Nitrite Negative (Negative) Urine Bilirubin Negative (Negative) Urine Urobilinogen <2.0 (<2.0) mg/dL Ur Leukocyte Esterase Negative (Negative) Urine RBC <1 (0-5) /hpf Urine WBC 1 (0-5) /hpf Amorphous Sediment Rare H (None) /hpf Hyaline Casts 3 H (0-2) /lpf Urine Mucus Rare H (None) /hpf Past Medical History Past Medical History: Coronary Artery Disease (CAD), Dementia, Diabetes Mellitus , Hyperlipidemia, Hypertension, Osteoarthritis (OA), Thyroid Disorder History of Any Multi-Drug Resistant Organisms: None Reported Additional Past Surgical History / Comment(s): carotid gland surgery Past Psychological History: No Psychological Hx Reported Smoking Status: Never smoker Past Alcohol Use History: None Reported Past Drug Use History: None Reported Course Vital Signs 02/18/17 02/18/17 19:56 21:47 Temperature 97.7 F Pulse Rate 101 H 67 Respiratory 18 18 Rate Blood Pressure 168/93 177/82 O2 Sat by Pulse 98 100 Oximetry Him EKG is a sinus tachycardia with a heart rate of 1 or 2 AR interval is 164 QRS duration is 82 QT/QTc is 326/437 review of this EKG reveals T-wave flattening in lead 1 T-wave inversion in aVL no ST elevation or ST depression noticed the other leads Her labs were reviewed and [place] family member present was unable to discuss with the family, CBC, INR, compressive metabolic panel, troponin, urinalysis and CT chest x-ray are unremarkable, plan to keep patient for observation just for his seizure disorder or new onset seizure Disposition Clinical Impression: Seizure disorder Disposition: ADMITTED IP TO THIS HOSP Condition: Fair Referrals: Evelin Marcus MD [Primary Care Provider] - 1-2 days
[2017-02-18] MEDS ORDERED: HYDROcodone/APAP 5-325MG 1 EACH TAB PO PRN (23:23)
[2017-02-18] MEDS ORDERED: ACETAMINOPHEN TAB 325 MG TAB PO PRN (23:23)
[2017-02-18] MEDS ORDERED: LORazepam 2 MG/ML SYRINGE IV PRN (23:26)
[2017-02-19] MEDS ORDERED: LABETALOL 5 MG/ML VIAL MDV IVP STA (00:34)
[2017-02-19 02:34] VITALS: BMI 37.7
[2017-02-19] MEDS ORDERED: METOPROLOL TARTRATE 25 MG TAB PO STA (02:35)
[2017-02-19 03:28] LABS: Cholesterol 204 mg/dL (<200); HDL Cholesterol 48 mg/dL (40-60)
[2017-02-19] MEDS: LEVOTHYROXINE 75 MCG TAB PO SCH (06:20)
[2017-02-19 07:39] LABS: Glucose,Whole Blood 174 mg/dL (75-99)
[2017-02-19] MEDS ORDERED: hydrALAZINE HCL 25 MG TAB PO SCH (09:00)
[2017-02-19] MEDS: HYDROCORTISONE 10 MG TAB PO SCH ×2 (09:07→18:26)
[2017-02-19] MEDS: METOPROLOL TARTRATE 25 MG TAB PO SCH ×2 (09:08→21:07)
[2017-02-19] MEDS: LIOTHYRONINE SODIUM 5 MCG TAB PO SCH (09:08)
[2017-02-19] MEDS: GLIMEPIRIDE 4 MG TAB PO SCH ×2 (09:08→17:23)
[2017-02-19] MEDS: ASPIRIN 81 MG CHEW PO SCH (09:08)
[2017-02-19] MEDS: hydrALAZINE HCL 50 MG TAB PO SCH ×3 (09:08→21:09)
[2017-02-19] MEDS: CLOPIDOGREL 75 MG TAB PO SCH (09:08)
[2017-02-19] MEDS: DIVALPROEX 250 MG TABLET.DR PO SCH ×2 (09:08→21:07)
[2017-02-19] MEDS: SENNOSIDES-DOCUSATE SODIUM 1 EACH TAB PO SCH (09:08)
[2017-02-19] MEDS: predniSONE 5 MG TAB PO SCH (09:08)
[2017-02-19] MEDS: CYANOCOBALAMIN 500 MCG TAB PO SCH (09:08)
[2017-02-19] MEDS: PANTOPRAZOLE 40 MG TABLET PO SCH (09:08)
[2017-02-19] MEDS: HEPARIN SODIUM,PORCINE 5,000 UNIT/ML 1 ML VIAL SQ SCH ×2 (09:09→21:07)
[2017-02-19] MEDS: CARBIDOPA-LEVODOPA 25-100 MG 1 EACH TAB PO SCH ×3 (11:08→21:08)
[2017-02-19] MEDS: metFORMIN 500 MG TAB PO SCH ×2 (11:08→17:23)
[2017-02-19] MEDS: VALSARTAN 160 MG TAB PO SCH (11:32)
[2017-02-19 12:11] LABS: Glucose,Whole Blood 223 mg/dL (75-99)
[2017-02-19] MEDS: INSULIN LISPRO (humaLOG) 300 UNIT/3 ML VIAL SQ SCH ×3 (12:33→21:10)
[2017-02-19 13:56] LABS: Hemoglobin A1C 7.3 % (4.2-6.1)
--- NOTE | 2017-02-19 14:03 | P.HPIM ---
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 Also was seen by physiatry and orthopedic for mild to moderate spinal stenosis of the lumbar spine did not require any surgery. Patient has been seen Dr. Marcus's last few month she apparently has been having significant decreased mobility with multiple fall abnormal balance and gait and worsening encephalopathy. Patient presented to the emergency department by a family late on 12/07/2016 not been able to ambulate and walk and severe weakness of the lower extremity becomes sudden that day. Patient was seen and evaluated her testing in the emergency room did not show initially any major abnormality. CAT scan of the brain showed no acute intracranial abnormality. 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 Dr. Mcdaniels was called to see patient in the emergency department and order IVIG after LP was ordered to be done for spinal fluid analysis. Patient was admitted to the hospital after her LP done, patient subsequent was sent to [facility] for evaluation by neurology and then she was admitted to [facility], and she has been under the care of Dr. Marcus, patient was sent yesterday after she was experiencing what appeared to be a tonic-clonic seizure, patient became somewhat post ictal with mental status changes, her urinalysis was normal ended up going for a computed tomography scan of the brain that was negative for acute abnormalities it did show small vessel disease, patient was admitted to the hospital she will be seen in consultation by neurology and subsequently the patient will have EEG done, patient may need to be started on Keppra 500 mg orally twice every day further evaluation. Review of Systems Constitutional: Reports fatigue, Reports malaise, Reports weakness, Reports weight gain, Denies anorexia, Denies chronic headaches Eyes: bilateral blurred vision, denies bulging eye, denies decreased vision, denies diplopia, denies discharge Ears: deny: decreased hearing Ears, nose, mouth and throat: Denies dysphagia, Denies neck lump, Denies sore throat Cardiovascular: Reports shortness of breath, Denies chest pain, Denies dyspnea on exertion, Denies edema, Denies high blood pressure, Denies phlebitis, Denies rapid heart beat, Denies syncope Respiratory: Denies congestion, Denies cough, Denies cough with sputum, Denies home oxygen, Denies sleep apnea, Denies snoring, Denies wheezing Gastrointestinal: Denies abdominal pain, Denies bloating, Denies BRBPR, Denies heartburn, Denies melena, Denies nausea, Denies vomiting Genitourinary: Denies dysuria, Denies hematuria Musculoskeletal: Reports gait dysfunction, Reports muscle weakness Musculoskeletal: absent: ankle pain, ankle stiffness, ankle swelling, elbow pain , elbow stiffness, elbow swelling, foot pain, foot stiffness, foot swelling, hand pain, hand stiffness, hand swelling, hip pain, hip stiffness, hip swelling , knee pain, knee stiffness, knee swelling, shoulder pain, shoulder stiffness, shoulder swelling, wrist pain, wrist stiffness, wrist swelling Integumentary: Denies pruritus, Denies rash Neurological: Reports confusion, Reports convulsions, Reports gait dysfunction, Reports headaches, Reports sensory deficit, Reports spasticity, Reports tremors , Reports weakness Psychiatric: Reports anxiety, Reports confusion, Reports hypersomnia, Reports memory loss, Reports mood swings, Denies sadness/tearfulness, Denies sleep disturbances Past Medical History Past Medical History: Coronary Artery Disease (CAD), Dementia, Diabetes Mellitus , Hyperlipidemia, Hypertension, Osteoarthritis (OA), Thyroid Disorder History of Any Multi-Drug Resistant Organisms: None Reported Additional Past Surgical History / Comment(s): carotid gland surgery Past Psychological History: No Psychological Hx Reported Additional Psychological History / Comment(s): Dementia Smoking Status: Former smoker (patient smoked about 5-6 cigarettes on a daily basis for a few years and she quit when very young) Past Alcohol Use History: None Reported Past Drug Use History: None Reported - Past Family History Father Family Medical History: CVA/TIA, Diabetes Mellitus (father at age of 62 from CVA and diabetes mellitus complications) Mother Family Medical History: No Reported History (mother at age 93 from old age. ) Brother(s) Family Medical History: Coronary Artery Disease (CAD) (patient had 3 brothers one from CVA the other 2 from CAD.), CVA/TIA Sister(s) Family Medical History: Cancer (patient had 6 sisters one of her sisters from CAD and lung cancer the rest are alive no major medical problems.), Coronary Artery Disease (CAD) Son(s) Family Medical History: No Reported History (patient has one son no major medical problems.) Daughter(s) Family Medical History: No Reported History (patient has 2 daughters no major medical problems.) Medications and Allergies Home Medications Medication Instructions Recorded Confirmed Type Levothyroxine Sodium [Synthroid] 75 mcg PO QAM 12/07/16 02/18/17 History Acetaminophen Tab [Tylenol Tab] 650 mg PO Q4H PRN 02/18/17 02/18/17 History Aspirin 81 mg PO DAILY 02/18/17 02/18/17 History Carbidopa-Levodopa 25-100 mg 2 tab PO TID 02/18/17 02/18/17 History [Sinemet 25-100] Clopidogrel [Plavix] 75 mg PO DAILY 02/18/17 02/18/17 History Cyanocobalamin [Vitamin B-12] 500 mcg PO DAILY 02/18/17 02/18/17 History Diclofenac Sodium [Voltaren Gel] 4 gram TOPICAL TID PRN 02/18/17 02/18/17 History Divalproex [Depakote] 250 mg PO BID 02/18/17 02/18/17 History Gabapentin [Neurontin] 100 mg PO BID@1700,2100 02/18/17 02/18/17 History Glimepiride [Amaryl] 4 mg PO BID@0900,1700 02/18/17 02/18/17 History HYDROcodone/APAP 5-325MG [[place] 1 tab PO TID PRN 02/18/17 02/18/17 History 5-325] Hydrocortisone 5 mg PO DAILY@1700 02/18/17 02/18/17 History Hydrocortisone [Cortef] 15 mg PO DAILY@0900 02/18/17 02/18/17 History Liothyronine Sodium [Cytomel] 5 mcg PO DAILY 02/18/17 02/18/17 History Melatonin 6 mg PO HS 02/18/17 02/18/17 History Omeprazole [PriLOSEC] 20 mg PO DAILY 02/18/17 02/18/17 History Sennosides-Docusate Sodium 1 tab PO DAILY 02/18/17 02/18/17 History [Senokot-S] Valsartan 320 mg PO DAILY 02/18/17 02/18/17 History hydrALAZINE HCL [Hydralazine HCl] 75 mg PO TID 02/18/17 02/18/17 History metFORMIN HCL 1,000 mg PO BID 02/18/17 02/18/17 History predniSONE 5 mg PO DAILY 02/18/17 02/18/17 History Allergies Allergy/AdvReac Type Severity Reaction Status Date / Time codeine AdvReac Nausea & Verified 02/18/17 19:56 Vomiting morphine AdvReac Nausea & Verified 02/18/17 19:56 Vomiting Physical Exam Vitals: Vital Signs Temp Pulse Pulse Resp BP BP Pulse Ox 02/19/17 07:00 98.0 F 92 20 175/92 97 02/19/17 01:16 179/97 02/19/17 00:29 99.0 F 93 20 190/98 02/19/17 00:00 98.3 F 107 H 18 186/104 100 02/18/17 22:00 107 H 20 177/94 98 02/18/17 21:47 67 18 177/82 100 02/18/17 19:56 97.7 F 101 H 18 168/93 98 Intake and Output 02/18/17 02/19/17 02/19/17 22:59 06:59 14:59 Other: # Voids 1 # Bowel Movements 1 Weight 103.192 kg 106 kg - Constitutional General appearance: no acute distress, obese - EENT Eyes: anicteric sclerae, EOMI, PERRLA, no ptosis, no scleral icterus, normal appearance ENT: hearing grossly normal, NA/AT, normal oropharynx, no thrush Ears: bilateral: normal - Neck Neck: no lymphadenopathy, normal ROM, no rigidity, no stridor, no thyromegaly Carotids: bilateral: upstroke normal Thyroid: bilateral: normal size - Respiratory Respiratory: bilateral: diminished, negative: dullness, rales, rhonchi, wheezing , prolonged expiration, prolonged inspiration - Cardiovascular Rhythm: regular Heart sounds: normal: S1, S2 Abnormal Heart Sounds: systolic murmur, no diastolic murmur, no S3 Gallop, no S4 Gallop, no click - Gastrointestinal General gastrointestinal: normal bowel sounds, soft, no splenomegaly, no tenderness, no umbilical hernia, no ventral hernia - Integumentary Integumentary: normal, normal turgor - Neurologic Neurologic: focal deficits - Musculoskeletal Musculoskeletal: no gait normal, generalized weakness - Psychiatric Psychiatric: no A&O x's 3, no appropriate affect, no intact judgment & insight Results CBC & Chem 7: 02/18/17 20:45 02/18/17 20:45 Labs: Abnormal Lab Results - Last 24 Hours (Table) 02/18/17 02/18/17 02/18/17 Range/Units 20:45 20:45 20:45 APTT 18.4 L (22.0-30.0) sec BUN 18 H (7-17) mg/dL Creatinine 1.05 H (0.52-1.04) mg/dL Glucose 175 H (74-99) mg/dL POC Glucose (mg/dL) (75-99) mg/dL Triglycerides 195 H (<150) mg/dL Cholesterol 204 H (<200) mg/dL LDL Cholesterol, Calc 117 H (0-99) mg/dL Urine Appearance (Clear) Urine Protein (Negative) Urine Ketones (Negative) Amorphous Sediment (None) /hpf Hyaline Casts (0-2) /lpf Urine Mucus (None) /hpf 02/18/17 02/19/17 Range/Units 21:45 07:26 APTT (22.0-30.0) sec BUN (7-17) mg/dL Creatinine (0.52-1.04) mg/dL Glucose (74-99) mg/dL POC Glucose (mg/dL) 174 H (75-99) mg/dL Triglycerides (<150) mg/dL Cholesterol (<200) mg/dL LDL Cholesterol, Calc (0-99) mg/dL Urine Appearance Cloudy H (Clear) Urine Protein 1+ H (Negative) Urine Ketones 2+ H (Negative) Amorphous Sediment Rare H (None) /hpf Hyaline Casts 3 H (0-2) /lpf Urine Mucus Rare H (None) /hpf Thrombosis Risk Factor Assmnt - DVT/VTE Prophylaxis DVT/VTE Prophylaxis: Pharmacologic Prophylaxis ordered, Mechanical Prophylaxis ordered - Choose All That Apply Any of the Below Risk Factors Present?: Yes Each Factor Represents 1 point: Medical pt on bed rest, Obesity (BMI >25) Other Risk Factors: Yes Each Risk Factor Represents 2 Points: Age 61-74 years Thrombosis Risk Factor Assessment Total Risk Factor Score: 4 Thrombosis Risk Factor Assessment Level: Moderate Risk Assessment and Plan Plan: Assessment and plan: 1. Encephalopathy thought to be due to hypertensive encephalopathy versus possible seizure. Place the patient on seizure precaution, neuro check every 2 hours for the next 24 hours, neurology evaluation, patient did have an ultrasound of the carotid few months ago that was negative, patient will be seen and evaluated by neurology and further recommendations to follow. Adjust her blood pressure medicine with increasing hydralazine to 100 mg orally 3 times every day and adding metoprolol 25 mg orally twice every day. 2. Severe weakness in both lower extremities with spasticity patient was seen and evaluated at [facility] was thought that the patient is having giant cell arteritis and Dr. Marcus is in the process of weaning her off the prednisone she is currently on 5 mg orally once every day. 3. History of giant cell arteritis. Was seen by the [facility] she has been maintained on prednisone 5 mg orally once every day. 4. Hypertension and hypertensive cardiovascular disease. We will continue the patient on Diovan 320 mg orally once every day. As well as Norvasc 5 mg orally once every day, I have increase her hydralazine 100 mg orally 3 times every day and added metoprolol 25 mg orally twice every day. 5. Hypothyroidism. Continue Synthroid 75 g orally once every day. 6. Diabetes mellitus type 2. Continue patient on metformin 1000 g orally twice every day along with a sliding scale insulin, continue glyburide 4 mg orally twice every day, continue BJM before each meal and at bedtime. 7. Parkinsonism. Continue patient on Sinemet 2 tablets orally 3 times every day, she is under the care of Dr. Persaud at this time. 8. Steroid-induced psychosis. Continue the patient on the Depakote 50 mg orally twice every day. 9. Bilateral lower extremity neuropathy continue the patient on gabapentin 100 mg orally twice every day. 10. DVT prophylaxis. Continue heparin 5000 units of convinced every 12 hours. 11. Adrenal insufficiency. Continue patient on Cortef 15 mg in the morning and 5 mg in evening. 12. GI prophylaxis. Continue Protonix 40 mg orally once every day. 13. Patient is full code. 14. Admitted to the hospital as an observation.
[2017-02-19] MEDS: GABAPENTIN 100 MG CAP PO SCH ×2 (17:23→21:07)
[2017-02-19 17:34] LABS: Glucose,Whole Blood 203 mg/dL (75-99)
[2017-02-19 21:07] LABS: Glucose,Whole Blood 162 mg/dL (75-99)
[2017-02-19] MEDS: MELATONIN 3 MG TABLET PO SCH (21:07)
--- NOTE | 2017-02-20 05:19 | EEG ---
DATE OF SERVICE: 02/19/2017 REASON FOR TESTING: Seizure. CURRENT ANTIEPILEPTIC MEDICATIONS: Neurontin and Depakote. DESCRIPTION OF THE PROCEDURE: This EEG was performed using a 21-channel digital electroencephalograph, following international 10-20 system. DESCRIPTION OF THE RECORDING: From the beginning of the tracing, and with the patient's eyes closed, the background rhythm was mostly consisting of 8 Hz alpha frequency in the posterior occipital leads. No obvious asymmetry is seen. Frequent muscle artifacts and occasional movement artifacts are seen. Photic stimulation was performed with no driving response seen. No pathological waves were elicited. Hypertension was not performed. The patient remains awake throughout the tracing. No epileptiform discharges were seen. Her EKG lead showed a regular rate and rhythm. INTERPRETATION: This awake EEG can be considered within normal limits. There was no asymmetry seen. No epileptiform discharges were noted. The absence of epileptiform discharges does not rule out the diagnosis of epilepsy, therefore clinical correlation is recommended. MTDD
[2017-02-20] MEDS: LEVOTHYROXINE 75 MCG TAB PO SCH (05:27)
[2017-02-20 07:11] LABS: Glucose,Whole Blood 163 mg/dL (75-99)
[2017-02-20] MEDS: metFORMIN 500 MG TAB PO SCH ×2 (07:50→17:15)
[2017-02-20] MEDS: VALSARTAN 160 MG TAB PO SCH (07:50)
[2017-02-20] MEDS: CARBIDOPA-LEVODOPA 25-100 MG 1 EACH TAB PO SCH ×3 (07:50→22:07)
[2017-02-20] MEDS: DIVALPROEX 250 MG TABLET.DR PO SCH ×2 (07:51→20:16)
[2017-02-20] MEDS: hydrALAZINE HCL 50 MG TAB PO SCH ×3 (07:51→22:07)
[2017-02-20] MEDS: CLOPIDOGREL 75 MG TAB PO SCH (07:51)
[2017-02-20] MEDS: ASPIRIN 81 MG CHEW PO SCH (07:52)
[2017-02-20] MEDS: LIOTHYRONINE SODIUM 5 MCG TAB PO SCH (07:52)
[2017-02-20] MEDS: HYDROCORTISONE 10 MG TAB PO SCH ×2 (07:52→17:14)
[2017-02-20] MEDS: GLIMEPIRIDE 4 MG TAB PO SCH ×2 (07:52→17:15)
[2017-02-20] MEDS: HEPARIN SODIUM,PORCINE 5,000 UNIT/ML 1 ML VIAL SQ SCH ×2 (07:52→20:17)
[2017-02-20] MEDS: SENNOSIDES-DOCUSATE SODIUM 1 EACH TAB PO SCH (07:52)
[2017-02-20] MEDS: predniSONE 5 MG TAB PO SCH (07:53)
[2017-02-20] MEDS: METOPROLOL TARTRATE 25 MG TAB PO SCH ×2 (07:54→20:18)
[2017-02-20] MEDS: CYANOCOBALAMIN 500 MCG TAB PO SCH (07:54)
[2017-02-20] MEDS: INSULIN LISPRO (humaLOG) 300 UNIT/3 ML VIAL SQ SCH ×4 (07:54→22:10)
[2017-02-20] MEDS: PANTOPRAZOLE 40 MG TABLET PO SCH (07:54)
--- NOTE | 2017-02-20 10:22 | CONS ---
DATE OF CONSULTATION: 02/19/2017 CHIEF COMPLAINT: Questionable seizure. HISTORY OF PRESENT ILLNESS: Mrs. Jeffery is a pleasant 71-year-old - [place] female who is being evaluated today on 02/19/2017 by the Neurology Service per the request of Dr. Sparrow for questionable episode of seizure. The patient was diagnosed with transverse myelitis was few months ago. The patient is a very poor historian and the history was all obtained from the nursing staff and medical notes. According to the notes, the patient was evaluated at the emergency room this past November and had signs and symptoms consistent with transverse myelitis. She was treated with IV Ig and later transferred to [facility]. It is unclear what the official diagnosis was and what other treatments were given. Since then, she has been having lower extremity weakness and was transferred to [facility] on the [place] for inpatient rehab. At [facility], she had an episode where her arms and legs started twitching, but she did not lose consciousness. There was increased confusion. She was brought into [facility] Emergency Room for further workup and management. At the time of my evaluation, no family members are available. Again, the patient is a very poor historian and her orientation is abnormal. Her exact baseline is unknown. A CT scan of the brain was done which showed no acute findings. There was evidence of small vessel ischemic changes and generalized atrophy. I did review her EEG which was normal. Her CBC showed no abnormalities. Her comprehensive metabolic profile was normal except for borderline renal insufficiency with BUN of 18 and creatinine of 1.05. Her fasting lipid panel showed minimal dyslipidemia with an LDL of 117. Her urinalysis was normal. PAST MEDICAL HISTORY: Recent transverse myelitis with lower extremity weakness, coronary artery disease, dementia, diabetes, dyslipidemia, hypertension, arthritis, hypothyroidism, history of carotid gland surgery. SOCIAL HISTORY: There is no history of any tobacco, alcohol or drug use. FAMILY HISTORY: Unknown. HOME MEDICATIONS: Reviewed in the chart. ALLERGIES: CODEINE AND MORPHINE. REVIEW OF SYSTEMS: Unable to obtain due to patients confusion. PHYSICAL EXAM: Vital signs show a temperature of 98.0, pulse 92, respirations 20, blood pressure 175/92. GENERAL APPEARANCE: The patient is an obese -Swiss female who appears to be in no acute distress. HEENT: Normocephalic, atraumatic. No facial asymmetry is seen. NECK: Supple with no masses felt. CARDIOVASCULAR: Regular rate and rhythm. ABDOMEN: Nontender, nondistended. EXTREMITIES: Edema with no clubbing seen. NEUROLOGICAL: The patient is awake and oriented to person only. She thought she was at [facility] and she could not recall the year. She does follow commands appropriately. Strength appears to be 2/5 in bilateral lower extremities and 4/ 5 in bilateral upper extremities. Sensory exam appears to be normal to light touch in all four extremities, but the distal lower extremity sensation appears to be reduced. No tremors or seizure like activity is seen. No obvious facial asymmetry is noticed on cranial nerve testing. IMPRESSION: 1. Atypical spell. 2. Altered mental status. 3. Generalized weakness, more severe in the lower extremities. 4. Recent transverse myelitis. 5. History of Parkinsons disease. 6. History of dementia. RECOMMENDATIONS: The patient did have a transient episode with tremors in all four extremities. She did not lose consciousness and did not have any sphincter incontinence. There is no previous history of seizures. I doubt that this episode was a seizure. I did review her EEG which was normal and her CT scan of the brain showed no significant abnormalities. The patient may have had cardiovascular etiology to cause her symptoms. As for her weakness I do recommend obtaining the records from [facility] to check etiological evidence of transverse myelitis. As for her mental status changes, she does have a reported history of dementia and her exact baseline is unknown. Continue Sinemet for her Parkinsons disease. Continue neuro checks. I will consult physical therapy to evaluate and treat daily. I will continue to follow with you. Further recommendations to follow. Thank you for allowing me to participate in the care of your patient. If you have any questions, please feel free to contact me. LISSA
[2017-02-20 11:39] LABS: Glucose,Whole Blood 148 mg/dL (75-99)
[2017-02-20] MEDS: GABAPENTIN 100 MG CAP PO SCH ×2 (17:15→20:18)
[2017-02-20 17:16] LABS: Glucose,Whole Blood 136 mg/dL (75-99)
[2017-02-20] MEDS: MELATONIN 3 MG TABLET PO SCH (20:17)
[2017-02-20 21:22] LABS: Glucose,Whole Blood 152 mg/dL (75-99)
[2017-02-21] MEDS: LEVOTHYROXINE 75 MCG TAB PO SCH (06:36)
[2017-02-21 07:16] LABS: Glucose,Whole Blood 98 mg/dL (75-99)
[2017-02-21] MEDS: INSULIN LISPRO (humaLOG) 300 UNIT/3 ML VIAL SQ SCH ×4 (09:32→21:15)
[2017-02-21] MEDS: SENNOSIDES-DOCUSATE SODIUM 1 EACH TAB PO SCH (09:35)
[2017-02-21] MEDS: metFORMIN 500 MG TAB PO SCH ×2 (09:37→18:06)
[2017-02-21] MEDS: hydrALAZINE HCL 50 MG TAB PO SCH ×3 (09:37→21:16)
[2017-02-21] MEDS: HYDROCORTISONE 10 MG TAB PO SCH ×2 (09:37→18:06)
[2017-02-21] MEDS: PANTOPRAZOLE 40 MG TABLET PO SCH (09:38)
[2017-02-21] MEDS: GLIMEPIRIDE 4 MG TAB PO SCH ×2 (09:38→18:06)
[2017-02-21] MEDS: predniSONE 5 MG TAB PO SCH (09:38)
[2017-02-21] MEDS: CARBIDOPA-LEVODOPA 25-100 MG 1 EACH TAB PO SCH ×3 (09:38→21:16)
[2017-02-21] MEDS: CLOPIDOGREL 75 MG TAB PO SCH (09:38)
[2017-02-21] MEDS: VALSARTAN 160 MG TAB PO SCH (09:38)
[2017-02-21] MEDS: METOPROLOL TARTRATE 25 MG TAB PO SCH ×2 (09:38→21:16)
[2017-02-21] MEDS: ASPIRIN 81 MG CHEW PO SCH (09:38)
[2017-02-21] MEDS: DIVALPROEX 250 MG TABLET.DR PO SCH ×2 (09:39→21:15)
[2017-02-21] MEDS: CYANOCOBALAMIN 500 MCG TAB PO SCH (09:39)
[2017-02-21] MEDS: LIOTHYRONINE SODIUM 5 MCG TAB PO SCH (09:40)
[2017-02-21] MEDS: HEPARIN SODIUM,PORCINE 5,000 UNIT/ML 1 ML VIAL SQ SCH ×2 (09:40→21:15)
[2017-02-21 12:35] LABS: Glucose,Whole Blood 132 mg/dL (75-99)
[2017-02-21] MEDS: amLODIPine 5 MG TAB PO SCH (13:01)
--- NOTE | 2017-02-21 14:07 | P.PN ---
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 Also was seen by physiatry and orthopedic for mild to moderate spinal stenosis of the lumbar spine did not require any surgery. Patient has been seen Dr. Marcus's last few month she apparently has been having significant decreased mobility with multiple fall abnormal balance and gait and worsening encephalopathy. Patient presented to the emergency department by a family late on 12/07/2016 not been able to ambulate and walk and severe weakness of the lower extremity becomes sudden that day. Patient was seen and evaluated her testing in the emergency room did not show initially any major abnormality. CAT scan of the brain showed no acute intracranial abnormality. 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 Dr. Mcdaniels was called to see patient in the emergency department and order IVIG after LP was ordered to be done for spinal fluid analysis. Patient was admitted to the hospital after her LP done, patient subsequent was sent to [facility] for evaluation by neurology and then she was admitted to [facility] on [facility], and she has been under the care of Dr. Marcus, patient was sent yesterday after she was experiencing what appeared to be a tonic-clonic seizure, patient became somewhat post ictal with mental status changes, her urinalysis was normal ended up going for a computed tomography scan of the brain that was negative for acute abnormalities it did show small vessel disease, patient was admitted to the hospital she will be seen in consultation by neurology and subsequently the patient will have EEG done, patient may need to be started on Keppra 500 mg orally twice every day further evaluation. 02/20: Patient has been seen by Dr. Powers and he doubts this is seizure activity. EEG is considered within normal limits. Patient's mental status is at her baseline. She has had no seizure activity/tremors since admission. Blood pressures improved with multiple changes addressed. We will plan to monitor the patient overnight and anticipate discharge by tomorrow. Objective - Vital Signs Vital signs: Vital Signs Temp 97.7 F 02/20/17 07:00 Pulse 68 02/20/17 07:00 Resp 16 02/20/17 07:00 BP 165/84 02/20/17 10:49 Pulse Ox 99 02/20/17 07:00 Intake & Output 02/19/17 02/20/17 02/20/17 18:59 06:59 18:59 Other: Voiding Method Diaper # Voids 2 1 1 # Bowel Movements 2 1 1 - Exam General appearance: no acute distress, obese - EENT Eyes: anicteric sclerae, EOMI, PERRLA, no ptosis, no scleral icterus, normal appearance ENT: hearing grossly normal, NA/AT, normal oropharynx, no thrush Ears: bilateral: normal - Neck Neck: no lymphadenopathy, normal ROM, no rigidity, no stridor, no thyromegaly Carotids: bilateral: upstroke normal Thyroid: bilateral: normal size - Respiratory Respiratory: bilateral: diminished, negative: dullness, rales, rhonchi, wheezing , prolonged expiration, prolonged inspiration - Cardiovascular Rhythm: regular Heart sounds: normal: S1, S2 Abnormal Heart Sounds: systolic murmur, no diastolic murmur, no S3 Gallop, no S4 Gallop, no click - Gastrointestinal General gastrointestinal: normal bowel sounds, soft, no splenomegaly, no tenderness, no umbilical hernia, no ventral hernia - Integumentary Integumentary: normal, normal turgor - Neurologic Neurologic: focal deficits - Musculoskeletal Musculoskeletal: no gait normal, generalized weakness - Psychiatric Psychiatric: no A&O x's 3, no appropriate affect, no intact judgment & insight - Labs CBC & Chem 7: 02/18/17 20:45 02/18/17 20:45 Labs: Abnormal Lab Results - Last 24 Hours (Table) 02/18/17 02/19/17 02/19/17 Range/Units 20:45 17:22 21:00 POC Glucose (mg/dL) 203 H 162 H (75-99) mg/dL Hemoglobin A1c 7.3 H (4.2-6.1) % 02/20/17 02/20/17 Range/Units 07:09 11:37 POC Glucose (mg/dL) 163 H 148 H (75-99) mg/dL Hemoglobin A1c (4.2-6.1) % Assessment and Plan Plan: 1. Encephalopathy thought to be due to hypertensive encephalopathy versus possible seizure. Place the patient on seizure precaution, neuro check every 2 hours for the next 24 hours, neurology evaluation, patient did have an ultrasound of the carotid few months ago that was negative, patient will be seen and evaluated by neurology and further recommendations to follow. Adjust her blood pressure medicine with increasing hydralazine to 100 mg orally 3 times every day and adding metoprolol 25 mg orally twice every day. 2. Severe weakness in both lower extremities with spasticity patient was seen and evaluated at [facility] was thought that the patient is having giant cell arteritis and Dr. Marcus is in the process of weaning her off the prednisone she is currently on 5 mg orally once every day. 3. History of giant cell arteritis. Was seen by the [facility] she has been maintained on prednisone 5 mg orally once every day. 4. Hypertension and hypertensive cardiovascular disease. We will continue the patient on Diovan 320 mg orally once every day. As well as Norvasc 5 mg orally once every day, I have increase her hydralazine 100 mg orally 3 times every day and added metoprolol 25 mg orally twice every day. 5. Hypothyroidism. Continue Synthroid 75 g orally once every day. 6. Diabetes mellitus type 2. Continue patient on metformin 1000 g orally twice every day along with a sliding scale insulin, continue glyburide 4 mg orally twice every day, continue BJM before each meal and at bedtime. 7. Parkinsonism. Continue patient on Sinemet 2 tablets orally 3 times every day, she is under the care of Dr. Persaud at this time. 8. Steroid-induced psychosis. Continue the patient on the Depakote 50 mg orally twice every day. 9. Bilateral lower extremity neuropathy continue the patient on gabapentin 100 mg orally twice every day. 10. DVT prophylaxis. Continue heparin 5000 units of convinced every 12 hours. 11. Adrenal insufficiency. Continue patient on Cortef 15 mg in the morning and 5 mg in evening. 12. GI prophylaxis. Continue Protonix 40 mg orally once every day. 13. Patient is full code. 14. Admitted to the hospital as an inpatient with plan for 2 night stay. Discharge plan: Return to [facility] tomorrow Impression and plan of care have been directed as dictated by the signing physician. Iona Prajapati nurse practitioner acting as scribe for signing physician..
[2017-02-21] MEDS ORDERED: ONDANSETRON 4 MG/2 ML VIAL IVP PRN (14:10)
--- NOTE | 2017-02-21 14:14 | P.PN ---
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 Also was seen by physiatry and orthopedic for mild to moderate spinal stenosis of the lumbar spine did not require any surgery. Patient has been seen Dr. Marcus's last few month she apparently has been having significant decreased mobility with multiple fall abnormal balance and gait and worsening encephalopathy. Patient presented to the emergency department by a family late on 12/07/2016 not been able to ambulate and walk and severe weakness of the lower extremity becomes sudden that day. Patient was seen and evaluated her testing in the emergency room did not show initially any major abnormality. CAT scan of the brain showed no acute intracranial abnormality. 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 Dr. Mcdaniels was called to see patient in the emergency department and order IVIG after LP was ordered to be done for spinal fluid analysis. Patient was admitted to the hospital after her LP done, patient subsequent was sent to [facility] for evaluation by neurology and then she was admitted to [facility] on the [place], and she has been under the care of Dr. Marcus, patient was sent yesterday after she was experiencing what appeared to be a tonic-clonic seizure, patient became somewhat post ictal with mental status changes, her urinalysis was normal ended up going for a computed tomography scan of the brain that was negative for acute abnormalities it did show small vessel disease, patient was admitted to the hospital she will be seen in consultation by neurology and subsequently the patient will have EEG done, patient may need to be started on Keppra 500 mg orally twice every day further evaluation. 02/20: Patient has been seen by Dr. Powers and he doubts this is seizure activity. EEG is considered within normal limits. Patient's mental status is at her baseline. She has had no seizure activity/tremors since admission. Blood pressures improved with multiple changes addressed. We will plan to monitor the patient overnight and anticipate discharge by tomorrow. 02/21: Patient's blood pressure remains elevated for which we have added in amlodipine 5 mg daily. At this time the changes have been to increase hydralazine to 100 mg 3 times daily, metoprolol 25 mg twice daily added along with the Norvasc. This afternoon, prior to being prepared for discharge back to [facility], patient vomited so discharge was held. Patient denies any headache , chest pain, shortness of breath. C. difficile toxin was negative. Objective - Vital Signs Vital signs: Vital Signs Temp 97.6 F 02/21/17 07:00 Pulse 78 02/21/17 07:00 Resp 18 02/21/17 07:00 BP 162/86 02/21/17 07:00 Pulse Ox 95 02/21/17 07:00 Intake & Output 02/20/17 02/21/17 02/21/17 18:59 06:59 18:59 Intake Total 600 Output Total 1 Balance 600 -1 Intake: Oral 600 Output: Emesis 1 Other: Voiding Method Diaper Incontinent # Voids 1 1 # Bowel Movements 1 1 - Exam General appearance: no acute distress, obese - EENT Eyes: anicteric sclerae, EOMI, PERRLA, no ptosis, no scleral icterus, normal appearance ENT: hearing grossly normal, NA/AT, normal oropharynx, no thrush Ears: bilateral: normal - Neck Neck: no lymphadenopathy, normal ROM, no rigidity, no stridor, no thyromegaly Carotids: bilateral: upstroke normal Thyroid: bilateral: normal size - Respiratory Respiratory: bilateral: diminished, negative: dullness, rales, rhonchi, wheezing , prolonged expiration, prolonged inspiration - Cardiovascular Rhythm: regular Heart sounds: normal: S1, S2 Abnormal Heart Sounds: systolic murmur, no diastolic murmur, no S3 Gallop, no S4 Gallop, no click - Gastrointestinal General gastrointestinal: normal bowel sounds, soft, no splenomegaly, no tenderness, no umbilical hernia, no ventral hernia - Integumentary Integumentary: normal, normal turgor - Neurologic Neurologic: focal deficits - Musculoskeletal Musculoskeletal: no gait normal, generalized weakness - Psychiatric Psychiatric: no A&O x's 3, no appropriate affect, no intact judgment & insight - Labs CBC & Chem 7: 02/18/17 20:45 02/18/17 20:45 Labs: Abnormal Lab Results - Last 24 Hours (Table) 02/20/17 02/20/17 02/21/17 Range/Units 17:14 21:10 12:33 POC Glucose (mg/dL) 136 H 152 H 132 H (75-99) mg/dL Assessment and Plan Plan: 1. Encephalopathy thought to be due to hypertensive encephalopathy versus possible seizure. Place the patient on seizure precaution, neuro check every 2 hours for the next 24 hours, neurology evaluation, patient did have an ultrasound of the carotid few months ago that was negative, patient will be seen and evaluated by neurology and further recommendations to follow. Adjust her blood pressure medicine with increasing hydralazine to 100 mg orally 3 times every day and adding metoprolol 25 mg orally twice every day. 2. Severe weakness in both lower extremities with spasticity patient was seen and evaluated at [facility] was thought that the patient is having giant cell arteritis and Dr. Marcus is in the process of weaning her off the prednisone she is currently on 5 mg orally once every day. 3. History of giant cell arteritis. Was seen by the [facility] she has been maintained on prednisone 5 mg orally once every day. 4. Hypertension and hypertensive cardiovascular disease. We will continue the patient on Diovan 320 mg orally once every day. As well as Norvasc 5 mg orally once every day, I have increase her hydralazine 100 mg orally 3 times every day and added metoprolol 25 mg orally twice every day. 5. Hypothyroidism. Continue Synthroid 75 g orally once every day. 6. Diabetes mellitus type 2. Continue patient on metformin 1000 g orally twice every day along with a sliding scale insulin, continue glyburide 4 mg orally twice every day, continue BJM before each meal and at bedtime. 7. Parkinsonism. Continue patient on Sinemet 2 tablets orally 3 times every day, she is under the care of Dr. Persaud at this time. 8. Steroid-induced psychosis. Continue the patient on the Depakote 50 mg orally twice every day. 9. Bilateral lower extremity neuropathy continue the patient on gabapentin 100 mg orally twice every day. 10. DVT prophylaxis. Continue heparin 5000 units of convinced every 12 hours. 11. Adrenal insufficiency. Continue patient on Cortef 15 mg in the morning and 5 mg in evening. 12. GI prophylaxis. Continue Protonix 40 mg orally once every day. 13. Patient is full code. 14. Emesis without abdominal pain. Poornimafrtom added. Discharge plan: Return to [facility] tomorrow Impression and plan of care have been directed as dictated by the signing physician. Iona Prajapati nurse practitioner acting as scribe for signing physician..
--- NOTE | 2017-02-21 14:15 | P.DS ---
Providers Date of admission: 02/18/17 23:20 Expected date of discharge: 02/25/17 Attending physician: Manohar Sparrow Consults: 02/18/17 23:21 Consult Physician Urgent Consulting Provider: Francisca Powers Consult Reason/Comments: Seizure disorder? Do you want consulting provider notified?: Yes Primary care physician: Evelin [facility] Course: 71-year-old female with known for long time known to have history of diabetes, hypertension, hyperlipidemia, neuropathy, atherosclerotic heart disease and 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 Also was seen by physiatry and orthopedic for mild to moderate spinal stenosis of the lumbar spine did not require any surgery. Patient has been seen Dr. Marcus's last few month she apparently has been having significant decreased mobility with multiple fall abnormal balance and gait and worsening encephalopathy. Patient presented to the emergency department by a family late on 12/07/2016 not been able to ambulate and walk and severe weakness of the lower extremity becomes sudden that day. Patient was seen and evaluated her testing in the emergency room did not show initially any major abnormality. CAT scan of the brain showed no acute intracranial abnormality. 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 Dr. Mcdaniels was called to see patient in the emergency department and order IVIG after LP was ordered to be done for spinal fluid analysis. Patient was admitted to the hospital after her LP done, patient subsequent was sent to [facility] for evaluation by neurology and then she was admitted to [facility] on the [place], and she has been under the care of Dr. Marcus, patient was sent yesterday after she was experiencing what appeared to be a tonic-clonic seizure, patient became somewhat post ictal with mental status changes, her urinalysis was normal ended up going for a computed tomography scan of the brain that was negative for acute abnormalities it did show small vessel disease, patient was admitted to the hospital she will be seen in consultation by neurology and subsequently the patient will have EEG done, patient may need to be started on Keppra 500 mg orally twice every day further evaluation. 02/20:Patient has been seen by Dr. Powers and he doubts this is seizure activity. EEG is considered within normal limits. Patient's mental status is at her baseline. She has had no seizure activity/tremors since admission. Blood pressures improved with multiple changes addressed. We will plan to monitor the patient overnight and anticipate discharge by tomorrow. 02/21: Patient's blood pressure remains elevated for which we have added in amlodipine 5 mg daily. At this time the changes have been to increase hydralazine to 100 mg 3 times daily, metoprolol 25 mg twice daily added along with the Norvasc. This afternoon, prior to being prepared for discharge back to [facility], patient vomited so discharge was held. Patient denies any headache , chest pain, shortness of breath. C. difficile toxin was negative. 02/22: Patient's discharge was held secondary to episodes of vomiting, patient has recurrent nausea for several weeks now, we have decided to keep the patient to investigate this further, abdominal ultrasound obtained including a HIDA scan with CCK, underlying gastroparesis cannot be ruled out secondary to long- standing diabetes mellitus, blood pressure remains to be elevated, pain control was discussed with family members this time, Tylenol will be added scheduled with when necessary hydrocodone, patient is going to also start on Lidoderm patches for the right back area patient had MRI imaging in November 2016 with no spinal stenosis noted 02/23: Patient continues to be without any symptoms, no nausea no vomiting, back pain has improved with scheduled Tylenol, along with Lidoderm them patches, ultrasound results are currently pending, we'll going to obtain HIDA scan with CCK in the morning if the bladder ultrasound are without stones. Anticipate discharge to [facility] in the morning 02/24: Abdominal ultrasound shows an enlarged spleen and prominent right renal collecting system due to mild right-sided hydronephrosis for which consult has been added for Dr. Elliott. Liver function tests remain elevated for which HIDA scan is showing elevated gallbladder ejection fraction reflect hypercontractile state. EF is 89%. Patient refused all of her medications this morning and told the nurse she was just tired of doing everyone tells her to do. Anticipate she'll be ready for discharge back to [facility] tomorrow. 02/25: Patient has been seen by Dr. florez with recommendations for repeat renal ultrasound in 6 months and check post void residual which was negative. Patient will be discharged back to [facility] today in stable condition. Discharge diagnoses: 1. Encephalopathy thought to be due to hypertensive encephalopathy versus possible seizure. 2. Severe weakness in both lower extremities with spasticity patient was seen and evaluated at [facility] was thought that the patient is having giant cell arteritis and Dr. Marcus is in the process of weaning her off the prednisone she is currently on 5 mg orally once every day. 3. History of giant cell arteritis. Was seen by the [facility] she has been maintained on prednisone 5 mg orally once every day. 4. Hypertension and hypertensive cardiovascular disease. We will continue the patient on Diovan 320 mg orally once every day. As well as Norvasc 5 mg orally once every day, I have increase her hydralazine 100 mg orally 3 times every day and added metoprolol 25 mg orally twice every day. 5. Hypothyroidism. Continue Synthroid 75 g orally once every day. 6. Diabetes mellitus type 2. Continue patient on metformin 1000 g orally twice every day along with a sliding scale insulin, continue glyburide 4 mg orally twice every day, continue BJM before each meal and at bedtime. 7. Parkinsonism. Continue patient on Sinemet 2 tablets orally 3 times every day, she is under the care of Dr. Persaud at this time. 8. Steroid-induced psychosis. Continue the patient on the Depakote 50 mg orally twice every day. 9. Bilateral lower extremity neuropathy continue the patient on gabapentin 100 mg orally twice every day. 10. Adrenal insufficiency. Continue patient on Cortef 15 mg in the morning and 5 mg in evening. 11. Emesis without abdominal pain. Discharge plan: Return to [facility] under the care of Dr. Marcus Impression and plan of care have been directed as dictated by the signing physician. Iona Prajapati nurse practitioner acting as scribe for signing physician. Patient Condition at Discharge: Good Plan - Discharge Summary New Discharge Prescriptions: New hydrALAZINE HCL [Apresoline] 100 mg PO TID tab Metoprolol Tartrate [Lopressor] 25 mg PO BID tab amLODIPine [Norvasc] 5 mg PO BID tab Chlorthalidone [Hygroton] 25 mg PO DAILY tab Lidocaine 5% Patch [Lidoderm 5% Patch] 1 patch TOPICAL DAILY patch Continue Levothyroxine Sodium [Synthroid] 75 mcg PO QAM Acetaminophen Tab [Tylenol] 650 mg PO Q4H PRN PRN Reason: Fever And/ Or Pain Carbidopa-Levodopa 25-100 mg [Sinemet 25-100 mg] 2 tab PO TID metFORMIN HCL 1,000 mg PO BID Gabapentin [Neurontin] 100 mg PO BID@1700,2100 Divalproex [Depakote] 250 mg PO BID Valsartan 320 mg PO DAILY Glimepiride [Amaryl] 4 mg PO BID@0900,1700 Cyanocobalamin [Vitamin B-12] 500 mcg PO DAILY predniSONE 5 mg PO DAILY Sennosides-Docusate Sodium [Senokot-S] 1 tab PO DAILY Omeprazole [PriLOSEC] 20 mg PO DAILY Clopidogrel [Plavix] 75 mg PO DAILY Melatonin 6 mg PO HS Hydrocortisone [Cortef] 15 mg PO DAILY@0900 Hydrocortisone 5 mg PO DAILY@1700 Liothyronine Sodium [Cytomel] 5 mcg PO DAILY Aspirin 81 mg PO DAILY Diclofenac Sodium [Voltaren Gel] 4 gram TOPICAL TID PRN PRN Reason: BACK PAIN HYDROcodone/APAP 5-325MG [[place] 5-325] 1 tab PO TID PRN #90 PRN Reason: Pain Discontinued hydrALAZINE HCL [Hydralazine HCl] 75 mg PO TID Discharge Medication List Levothyroxine Sodium [Synthroid] 75 mcg PO QAM 12/07/16 [History] Acetaminophen Tab [Tylenol] 650 mg PO Q4H PRN 02/18/17 [History] Aspirin 81 mg PO DAILY 02/18/17 [History] Carbidopa-Levodopa 25-100 mg [Sinemet 25-100 mg] 2 tab PO TID 02/18/17 [History] Clopidogrel [Plavix] 75 mg PO DAILY 02/18/17 [History] Cyanocobalamin [Vitamin B-12] 500 mcg PO DAILY 02/18/17 [History] Diclofenac Sodium [Voltaren Gel] 4 gram TOPICAL TID PRN 02/18/17 [History] Divalproex [Depakote] 250 mg PO BID 02/18/17 [History] Gabapentin [Neurontin] 100 mg PO BID@1700,2100 02/18/17 [History] Glimepiride [Amaryl] 4 mg PO BID@0900,1700 02/18/17 [History] Hydrocortisone 5 mg PO DAILY@1700 02/18/17 [History] Hydrocortisone [Cortef] 15 mg PO DAILY@0900 02/18/17 [History] Liothyronine Sodium [Cytomel] 5 mcg PO DAILY 02/18/17 [History] Melatonin 6 mg PO HS 02/18/17 [History] Omeprazole [PriLOSEC] 20 mg PO DAILY 02/18/17 [History] Sennosides-Docusate Sodium [Senokot-S] 1 tab PO DAILY 02/18/17 [History] Valsartan 320 mg PO DAILY 02/18/17 [History] metFORMIN HCL 1,000 mg PO BID 02/18/17 [History] predniSONE 5 mg PO DAILY 02/18/17 [History] HYDROcodone/APAP 5-325MG [[place] 5-325] 1 tab PO TID PRN #90 02/21/17 [Rx] Metoprolol Tartrate [Lopressor] 25 mg PO BID tab 02/21/17 [Rx] hydrALAZINE HCL [Apresoline] 100 mg PO TID tab 02/21/17 [Rx] Chlorthalidone [Hygroton] 25 mg PO DAILY tab 02/25/17 [Rx] Lidocaine 5% Patch [Lidoderm 5% Patch] 1 patch TOPICAL DAILY patch 02/25/17 [Rx ] amLODIPine [Norvasc] 5 mg PO BID tab 02/25/17 [Rx] Follow up Appointment(s)/Referral(s): Evelin Marcus MD [Primary Care Provider] - 1 Week (at [facility] ) [facility], [NON-STAFF] - Patient Instructions/Handouts: Type 2 Diabetes in Adults (DC), New-Onset Seizure in Adults (DC), Fall Prevention (DC) Activity/Diet/Wound Care/Special Instructions: Cardiac,diabetic diet. Mechanical dysphagia, one to one feed, aspiration precautions. Fall precautions. Up with assist, change positions every 2 hours while awake. Discharge Disposition: TRANSFER TO SNF/ECF
[2017-02-21 17:25] LABS: Glucose,Whole Blood 152 mg/dL (75-99)
--- NOTE | 2017-02-21 17:59 | P.PN ---
Subjective Principal diagnosis: Patient is a pleasant 71-year-old -Maldivian female who is being followed by the neurology service for questionable episode of seizure. Patient was brought to [facility] emergency room with increased weakness reportedly secondary to transverse myelitis. Patient was at [facility] in the [place] for inpatient rehab and had an episode of arm and leg twitching. No loss of consciousness reported. There was increased confusion. Computed tomography scan of the brain was done which showed no acute findings. There was evidence of small vessel ischemic changes and generalized atrophy. EEG was normal. At the time of my evaluation, patient's resting comfortably in bed and appears to be in no acute distress. Objective - Vital Signs Vital signs: Vital Signs Temp 98.5 F 02/21/17 15:00 Pulse 86 02/21/17 15:00 Resp 18 02/21/17 15:00 BP 161/93 02/21/17 15:00 Pulse Ox 96 02/21/17 15:00 Intake & Output 02/20/17 02/21/17 02/21/17 18:59 06:59 18:59 Intake Total 600 Output Total 1 Balance 600 -1 Intake: Oral 600 Output: Emesis 1 Other: Voiding Method Diaper Incontinent # Voids 1 1 3 # Bowel Movements 1 1 1 # Emeses 1 - Exam PHYSICAL EXAM: GENERAL APPEARANCE: Patient is a well-developed, -Mal[place]ian female who appears to be in no acute distress. HEENT: Normocephalic, atraumatic, no facial asymmetry is seen. Neck is supple with no masses felt. CARDIOVASCULAR: Regular rate and rhythm. ABDOMEN: Nontender, nondistended. EXTREMITIES: Show no edema or clubbing. NEUROLOGICAL EXAM: Patient is awake, alert, and oriented 2. Patient states she is at [facility]. Patient quickly corrected herself. Patient does follow commands appropriately. She has left-sided hemiparesis which is not new for her. Strength is 2/5 in bilateral lower extremities and 4/5 in right upper extremity and 2/5 in left upper extremity. Sensory exam is normal to light touch in all 4 extremities. No tremors or seizure-like activity is seen. No facial asymmetry is noted on cranial nerve testing. - Labs CBC & Chem 7: 02/18/17 20:45 02/18/17 20:45 Labs: Abnormal Lab Results - Last 24 Hours (Table) 0802/21/17 02/21/17 Range/Units 21:10 12:33 17:22 POC Glucose (mg/dL) 152 H 132 H 152 H (75-99) mg/dL Assessment and Plan Plan: Impression: 1. Atypical spell 2. Altered mental status 3. Generalized weakness line 4. Recent transverse myelitis 4. History of Parkinson's disease 5. History of dementia Recommendations: Patient did have transient episode with tremors in all 4 extremities. She did not lose consciousness. Patient denies having any sphincter incontinence. Patient does not have a history of seizures. EEG was normal and computed tomography scan of the brain showed no significant abnormalities. Patient does have history of Parkinson's disease for which she takes Sinemet. It is doubtful this was a seizure. It is not warranted for patient to be placed on antiepileptic medication at this time. Any further seizures or seizure activity we will revisit antiepileptic medication. Patient is stable from neurology standpoint for discharge. I agree patient will need inpatient rehab. I will continue to follow with you on an as-needed basis. Feel free to call with any questions or concerns. I performed an examination of the patient and discussed the management with the SPREAD CUTTER. I have reviewed the SPREAD CUTTER notes and agree with the findings and plan of care.
[2017-02-21] MEDS: GABAPENTIN 100 MG CAP PO SCH ×2 (18:06→21:15)
[2017-02-21 20:41] LABS: Glucose,Whole Blood 147 mg/dL (75-99)
[2017-02-21] MEDS: MELATONIN 3 MG TABLET PO SCH (21:16)
[2017-02-22] MEDS: LEVOTHYROXINE 75 MCG TAB PO SCH (07:16)
[2017-02-22 07:51] LABS: Glucose,Whole Blood 79 mg/dL (75-99)
[2017-02-22] MEDS: INSULIN LISPRO (humaLOG) 300 UNIT/3 ML VIAL SQ SCH ×4 (07:59→21:45)
[2017-02-22] MEDS: CARBIDOPA-LEVODOPA 25-100 MG 1 EACH TAB PO SCH ×3 (08:01→22:05)
[2017-02-22] MEDS: metFORMIN 500 MG TAB PO SCH ×2 (08:01→17:06)
[2017-02-22] MEDS: CLOPIDOGREL 75 MG TAB PO SCH (08:02)
[2017-02-22] MEDS: amLODIPine 5 MG TAB PO SCH (08:02)
[2017-02-22] MEDS: LIOTHYRONINE SODIUM 5 MCG TAB PO SCH (08:02)
[2017-02-22] MEDS: CYANOCOBALAMIN 500 MCG TAB PO SCH (08:02)
[2017-02-22] MEDS: predniSONE 5 MG TAB PO SCH (08:02)
[2017-02-22] MEDS: ASPIRIN 81 MG CHEW PO SCH (08:02)
[2017-02-22] MEDS: hydrALAZINE HCL 50 MG TAB PO SCH ×3 (08:02→22:05)
[2017-02-22] MEDS: GLIMEPIRIDE 4 MG TAB PO SCH ×2 (08:02→17:06)
[2017-02-22] MEDS: DIVALPROEX 250 MG TABLET.DR PO SCH ×2 (08:02→20:17)
[2017-02-22] MEDS: VALSARTAN 160 MG TAB PO SCH (08:03)
[2017-02-22] MEDS: HYDROCORTISONE 10 MG TAB PO SCH ×2 (08:03→17:06)
[2017-02-22] MEDS: METOPROLOL TARTRATE 25 MG TAB PO SCH ×2 (08:04→20:18)
[2017-02-22] MEDS: HEPARIN SODIUM,PORCINE 5,000 UNIT/ML 1 ML VIAL SQ SCH ×2 (08:04→20:17)
[2017-02-22] MEDS: SENNOSIDES-DOCUSATE SODIUM 1 EACH TAB PO SCH (08:04)
[2017-02-22] MEDS: PANTOPRAZOLE 40 MG TABLET PO SCH (08:05)
[2017-02-22 12:43] LABS: Glucose,Whole Blood 96 mg/dL (75-99)
--- NOTE | 2017-02-22 16:10 | P.PN ---
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 Also was seen by physiatry and orthopedic for mild to moderate spinal stenosis of the lumbar spine did not require any surgery. Patient has been seen Dr. Marcus's last few month she apparently has been having significant decreased mobility with multiple fall abnormal balance and gait and worsening encephalopathy. Patient presented to the emergency department by a family late on 12/07/2016 not been able to ambulate and walk and severe weakness of the lower extremity becomes sudden that day. Patient was seen and evaluated her testing in the emergency room did not show initially any major abnormality. CAT scan of the brain showed no acute intracranial abnormality. 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 Dr. Mcdaniels was called to see patient in the emergency department and order IVIG after LP was ordered to be done for spinal fluid analysis. Patient was admitted to the hospital after her LP done, patient subsequent was sent to [facility] for evaluation by neurology and then she was admitted to [facility] on the [place], and she has been under the care of Dr. Marcus, patient was sent yesterday after she was experiencing what appeared to be a tonic-clonic seizure, patient became somewhat post ictal with mental status changes, her urinalysis was normal ended up going for a computed tomography scan of the brain that was negative for acute abnormalities it did show small vessel disease, patient was admitted to the hospital she will be seen in consultation by neurology and subsequently the patient will have EEG done, patient may need to be started on Keppra 500 mg orally twice every day further evaluation. 02/20: Patient has been seen by Dr. Powers and he doubts this is seizure activity. EEG is considered within normal limits. Patient's mental status is at her baseline. She has had no seizure activity/tremors since admission. Blood pressures improved with multiple changes addressed. We will plan to monitor the patient overnight and anticipate discharge by tomorrow. 02/21: Patient's blood pressure remains elevated for which we have added in amlodipine 5 mg daily. At this time the changes have been to increase hydralazine to 100 mg 3 times daily, metoprolol 25 mg twice daily added along with the Norvasc. This afternoon, prior to being prepared for discharge back to [facility], patient vomited so discharge was held. Patient denies any headache , chest pain, shortness of breath. C. difficile toxin was negative. 02/22: Patient's discharge was held secondary to episodes of vomiting, patient has recurrent nausea for several weeks now, we have decided to keep the patient to investigate this further, abdominal ultrasound obtained including a HIDA scan with CCK, underlying gastroparesis cannot be ruled out secondary to long- standing diabetes mellitus, blood pressure remains to be elevated, pain control was discussed with family members this time, Tylenol will be added scheduled with when necessary hydrocodone, patient is going to also start on Lidoderm patches for the right back area patient had MRI imaging in November 2016 with no spinal stenosis noted Objective - Vital Signs Vital signs: Vital Signs Temp 97.8 F 02/22/17 15:00 Pulse 82 02/22/17 15:00 Resp 16 02/22/17 15:00 BP 140/83 02/22/17 15:00 Pulse Ox 98 02/22/17 15:00 Intake & Output 02/21/17 02/22/17 02/22/17 18:59 06:59 18:59 Intake Total 550 Balance 550 Intake: Oral 550 Other: Voiding Method Incontinent # Voids 3 1 1 # Bowel Movements 1 1 # Emeses 1 - Constitutional General appearance: Present: cooperative, no acute distress, obese - EENT Eyes: Present: anicteric sclerae, EOMI, PERRLA, dentition normal, normal appearance ENT: Present: NA/AT, normal oropharynx - Neck Neck: Present: normal ROM. Absent: lymphadenopathy, other, rigidity, stridor, thyromegaly - Respiratory Respiratory: bilateral: CTA, negative: diminished, dullness, rales - Cardiovascular Rhythm: regular Heart sounds: normal: S1, S2 Abnormal Heart Sounds: Absent: systolic murmur, diastolic murmur, rub, S3 Gallop , S4 Gallop, click, other - Gastrointestinal General gastrointestinal: Present: normal bowel sounds, soft - Integumentary Integumentary: Present: decreased turgor, normal - Musculoskeletal Musculoskeletal: Present: generalized weakness, strength equal bilaterally - Psychiatric Psychiatric: Present: A&O x's 3, appropriate affect, intact judgment & insight - Labs CBC & Chem 7: 02/18/17 20:45 02/18/17 20:45 Labs: Abnormal Lab Results - Last 24 Hours (Table) 02/21/17 02/21/17 Range/Units 17:22 20:24 POC Glucose (mg/dL) 152 H 147 H (75-99) mg/dL Assessment and Plan Plan: 1. Encephalopathy thought to be due to hypertensive encephalopathy versus possible seizure. Place the patient on seizure precaution, neuro check every 2 hours for the next 24 hours, neurology evaluation, patient did have an ultrasound of the carotid few months ago that was negative, patient will be seen and evaluated by neurology and further recommendations to follow. Adjust her blood pressure medicine with increasing hydralazine to 100 mg orally 3 times every day and adding metoprolol 25 mg orally twice every day. 2. Severe weakness in both lower extremities with spasticity patient was seen and evaluated at [facility] was thought that the patient is having giant cell arteritis and Dr. Marcus is in the process of weaning her off the prednisone she is currently on 5 mg orally once every day. 3. History of giant cell arteritis. Was seen by the [facility] she has been maintained on prednisone 5 mg orally once every day. 4. 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 We will continue the patient on Diovan 320 mg orally once every day. As well as Norvasc 5 mg orally once every day, I have increase her hydralazine 100 mg orally 3 times every day and added metoprolol 25 mg orally twice every day. Pain control discussed with family members, patient is to receive Tylenol, scheduled with Lidoderm patches scheduled, when necessary [place]. She was at the scheduled [place] dose for a few weeks until this was changed to a when necessary dosing 5. Hypothyroidism. Continue Synthroid 75 g orally once every day. 6. Diabetes mellitus type 2. Continue patient on metformin 1000 g orally twice every day along with a sliding scale insulin, continue glyburide 4 mg orally twice every day, continue BJM before each meal and at bedtime. 7. Parkinsonism. Continue patient on Sinemet 2 tablets orally 3 times every day, she is under the care of Dr. Persaud at this time. 8. Steroid-induced psychosis. Continue the patient on the Depakote 50 mg orally twice every day. 9. Bilateral lower extremity neuropathy continue the patient on gabapentin 100 mg orally twice every day. 10. DVT prophylaxis. Continue heparin 5000 units of convinced every 12 hours. 11. Adrenal insufficiency. Continue patient on Cortef 15 mg in the morning and 5 mg in evening. 12. GI prophylaxis. Continue Protonix 40 mg orally once every day. 13. Patient is full code. 14. Emesis without abdominal pain. Zofran added gastroparesis is entertained, however biliary dyskinesia cannot be ruled out at this time, patient would undergo ultrasound of the abdomen along with HIDA scan should there be no gallbladder stones noted, anticipate discharge to [facility] on Friday. Discharge plan: Return to [facility] on day
[2017-02-22] MEDS: LIDOCAINE 5% PATCH TOPICAL SCH (17:05)
[2017-02-22] MEDS: GABAPENTIN 100 MG CAP PO SCH ×2 (17:06→20:17)
[2017-02-22 17:26] LABS: Glucose,Whole Blood 155 mg/dL (75-99)
[2017-02-22] MEDS: MELATONIN 3 MG TABLET PO SCH (20:18)
[2017-02-22] MEDS: ACETAMINOPHEN TAB 325 MG TAB PO SCH (20:18)
[2017-02-22 20:53] LABS: Glucose,Whole Blood 145 mg/dL (75-99)
[2017-02-23] MEDS: LEVOTHYROXINE 75 MCG TAB PO SCH (05:57)
[2017-02-23 07:41] LABS: Glucose,Whole Blood 67 mg/dL (75-99)
[2017-02-23 07:49] LABS: Glucose,Whole Blood 78 mg/dL (75-99)
[2017-02-23] MEDS: INSULIN LISPRO (humaLOG) 300 UNIT/3 ML VIAL SQ SCH ×4 (07:56→21:42)
[2017-02-23 08:45] LABS: Basophils % (A) 0 %; CH 27.9; CHCM 32.1; Eosinophils # (A) 0.1 k/uL (0-0.7); Eosinophils % (A) 2 %; HCT 36.8 % (34.0-46.0); HDW 2.65; HGB 11.9 gm/dL (11.4-16.0); Luc # (Auto) 0.17; Luc % (Auto) 2; Lymphocytes # (A) 2.5 k/uL (1.0-4.8); Lymphocytes % (A) 35 %; MCH 28.3 pg (25.0-35.0); MCHC 32.4 g/dL (31.0-37.0); MCV 87.2 fL (80.0-100.0); Mean Platelet Volume 9.1; Monocytes # (A) 0.4 k/uL (0-1.0); Monocytes % (A) 6 %; Neutrophils % (A) 56 %; RBC 4.22 m/uL (3.80-5.40); RDW 14.1 % (11.5-15.5); WBC 7.2 k/uL (3.8-10.6); WBC (Perox) 7.85
[2017-02-23 09:07] LABS: ALT 12 U/L (9-52); AST 15 U/L (14-36); Alkaline Phosphatase 61 U/L (38-126); Anion Gap 11 mmol/L; Blood Urea Nitrogen 12 mg/dL (7-17); Calcium 9.3 mg/dL (8.4-10.2); Carbon Dioxide 24 mmol/L (22-30); Chloride 107 mmol/L (98-107); Glucose 58 mg/dL (74-99); Non-African American GFR(MDRD) >60 (>60 ml/min/1.73 sqM); Potassium 3.9 mmol/L (3.5-5.1); Sodium 142 mmol/L (137-145); Total Bilirubin 0.3 mg/dL (0.2-1.3); Total Protein 6.5 g/dL (6.3-8.2)
[2017-02-23] MEDS ORDERED: DEXTROSE 10 % IN WATER 250 ML IV STA (10:25)
[2017-02-23 10:33] LABS: Glucose,Whole Blood 63 mg/dL (75-99)
[2017-02-23 11:24] LABS: Glucose,Whole Blood 183 mg/dL (75-99)
[2017-02-23 12:05] LABS: Glucose,Whole Blood 133 mg/dL (75-99)
[2017-02-23] MEDS: CARBIDOPA-LEVODOPA 25-100 MG 1 EACH TAB PO SCH ×3 (12:21→21:40)
[2017-02-23] MEDS: GLIMEPIRIDE 4 MG TAB PO SCH ×2 (12:21→18:16)
[2017-02-23] MEDS: metFORMIN 500 MG TAB PO SCH ×2 (12:21→18:17)
[2017-02-23] MEDS: hydrALAZINE HCL 50 MG TAB PO SCH ×3 (12:22→23:11)
[2017-02-23] MEDS: DIVALPROEX 250 MG TABLET.DR PO SCH ×2 (12:22→21:40)
[2017-02-23] MEDS: SENNOSIDES-DOCUSATE SODIUM 1 EACH TAB PO SCH (12:22)
[2017-02-23] MEDS: LIDOCAINE 5% PATCH TOPICAL SCH (12:32)
[2017-02-23] MEDS: HEPARIN SODIUM,PORCINE 5,000 UNIT/ML 1 ML VIAL SQ SCH ×2 (12:32→21:39)
[2017-02-23] MEDS: ACETAMINOPHEN TAB 325 MG TAB PO SCH ×2 (15:13→21:39)
[2017-02-23] MEDS: HYDROCORTISONE 10 MG TAB PO SCH ×2 (15:38→15:39)
[2017-02-23] MEDS: CLOPIDOGREL 75 MG TAB PO SCH (15:38)
[2017-02-23] MEDS: LIOTHYRONINE SODIUM 5 MCG TAB PO SCH (15:38)
[2017-02-23] MEDS: predniSONE 5 MG TAB PO SCH (15:39)
[2017-02-23] MEDS: ASPIRIN 81 MG CHEW PO SCH (15:39)
[2017-02-23] MEDS: METOPROLOL TARTRATE 25 MG TAB PO SCH ×2 (15:39→21:41)
[2017-02-23] MEDS: CYANOCOBALAMIN 500 MCG TAB PO SCH (15:39)
[2017-02-23] MEDS: PANTOPRAZOLE 40 MG TABLET PO SCH (15:40)
[2017-02-23] MEDS: VALSARTAN 160 MG TAB PO SCH (15:40)
[2017-02-23] MEDS: GABAPENTIN 100 MG CAP PO SCH ×2 (15:41→21:41)
[2017-02-23] MEDS: CHLORTHALIDONE 25 MG TAB PO SCH (15:49)
[2017-02-23] MEDS: amLODIPine 5 MG TAB PO SCH ×2 (15:55→21:41)
[2017-02-23 17:23] LABS: Glucose,Whole Blood 136 mg/dL (75-99)
--- NOTE | 2017-02-23 17:31 | P.PN ---
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 Also was seen by physiatry and orthopedic for mild to moderate spinal stenosis of the lumbar spine did not require any surgery. Patient has been seen Dr. Marcus's last few month she apparently has been having significant decreased mobility with multiple fall abnormal balance and gait and worsening encephalopathy. Patient presented to the emergency department by a family late on 12/07/2016 not been able to ambulate and walk and severe weakness of the lower extremity becomes sudden that day. Patient was seen and evaluated her testing in the emergency room did not show initially any major abnormality. CAT scan of the brain showed no acute intracranial abnormality. 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 Dr. Mcdaniels was called to see patient in the emergency department and order IVIG after LP was ordered to be done for spinal fluid analysis. Patient was admitted to the hospital after her LP done, patient subsequent was sent to [facility] for evaluation by neurology and then she was admitted to [facility] on the [place], and she has been under the care of Dr. Marcus, patient was sent yesterday after she was experiencing what appeared to be a tonic-clonic seizure, patient became somewhat post ictal with mental status changes, her urinalysis was normal ended up going for a computed tomography scan of the brain that was negative for acute abnormalities it did show small vessel disease, patient was admitted to the hospital she will be seen in consultation by neurology and subsequently the patient will have EEG done, patient may need to be started on Keppra 500 mg orally twice every day further evaluation. 02/20: Patient has been seen by Dr. Powers and he doubts this is seizure activity. EEG is considered within normal limits. Patient's mental status is at her baseline. She has had no seizure activity/tremors since admission. Blood pressures improved with multiple changes addressed. We will plan to monitor the patient overnight and anticipate discharge by tomorrow. 02/21: Patient's blood pressure remains elevated for which we have added in amlodipine 5 mg daily. At this time the changes have been to increase hydralazine to 100 mg 3 times daily, metoprolol 25 mg twice daily added along with the Norvasc. This afternoon, prior to being prepared for discharge back to [facility], patient vomited so discharge was held. Patient denies any headache , chest pain, shortness of breath. C. difficile toxin was negative. 02/22: Patient's discharge was held secondary to episodes of vomiting, patient has recurrent nausea for several weeks now, we have decided to keep the patient to investigate this further, abdominal ultrasound obtained including a HIDA scan with CCK, underlying gastroparesis cannot be ruled out secondary to long- standing diabetes mellitus, blood pressure remains to be elevated, pain control was discussed with family members this time, Tylenol will be added scheduled with when necessary hydrocodone, patient is going to also start on Lidoderm patches for the right back area patient had MRI imaging in November 2016 with no spinal stenosis noted 02/23: Patient continues to be without any symptoms, no nausea no vomiting, back pain has improved with scheduled Tylenol, along with Lidoderm them patches, ultrasound results are currently pending, we'll going to obtain HIDA scan with CCK in the morning if the bladder ultrasound are without stones. Anticipate discharge to [facility] in the morning Objective - Vital Signs Vital signs: Vital Signs Temp 99.1 F 02/23/17 15:00 Pulse 73 02/23/17 15:00 Resp 16 02/23/17 15:00 BP 185/93 02/23/17 15:00 Pulse Ox 97 02/23/17 15:00 Intake & Output 02/22/17 02/23/17 02/23/17 18:59 06:59 18:59 Intake Total 0 Balance 0 Intake: Oral 0 Other: Voiding Method Incontinent # Voids 1 4 1 # Bowel Movements 1 1 - Constitutional General appearance: Present: cooperative, no acute distress - EENT Eyes: Present: anicteric sclerae, EOMI, dentition normal, normal appearance ENT: Present: NA/AT, normal oropharynx - Neck Neck: Present: normal ROM. Absent: lymphadenopathy, other, rigidity, stridor, thyromegaly - Respiratory Respiratory: bilateral: CTA, negative: diminished, dullness, rales - Cardiovascular Rhythm: regular Heart sounds: normal: S1, S2 Abnormal Heart Sounds: Absent: systolic murmur, diastolic murmur, rub, S3 Gallop , S4 Gallop, click, other - Gastrointestinal General gastrointestinal: Present: normal bowel sounds, soft - Integumentary Integumentary: Present: normal, normal turgor - Neurologic Neurologic: Present: CNII-XII intact - Musculoskeletal Musculoskeletal: Present: gait normal, strength equal bilaterally - Psychiatric Psychiatric: Present: A&O x's 3, appropriate affect, intact judgment & insight - Labs CBC & Chem 7: 02/23/17 07:43 02/23/17 07:43 Labs: Abnormal Lab Results - Last 24 Hours (Table) 02/22/17 02/23/17 02/23/17 Range/Units 20:31 07:23 07:43 Glucose 58 L (74-99) mg/dL POC Glucose (mg/dL) 145 H 67 L (75-99) mg/dL 02/23/17 02/23/17 02/23/17 Range/Units 10:13 11:03 11:53 Glucose (74-99) mg/dL POC Glucose (mg/dL) 63 L 183 H 133 H (75-99) mg/dL 02/23/17 Range/Units 17:18 Glucose (74-99) mg/dL POC Glucose (mg/dL) 136 H (75-99) mg/dL Assessment and Plan Plan: 1. Encephalopathy thought to be due to hypertensive encephalopathy versus possible seizure. Place the patient on seizure precaution, neuro check every 2 hours for the next 24 hours, neurology evaluation, patient did have an ultrasound of the carotid few months ago that was negative, patient will be seen and evaluated by neurology and further recommendations to follow. Adjust her blood pressure medicine with increasing hydralazine to 100 mg orally 3 times every day and adding metoprolol 25 mg orally twice every day. 2. Severe weakness in both lower extremities with spasticity patient was seen and evaluated at [facility] was thought that the patient is having giant cell arteritis and Dr. Marcus is in the process of weaning her off the prednisone she is currently on 5 mg orally once every day. 3. History of giant cell arteritis. Was seen by the [facility] she has been maintained on prednisone 5 mg orally once every day. 4. 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 We will continue the patient on Diovan 320 mg orally once every day. As well as Norvasc 5 mg orally once every day, I have increase her hydralazine 100 mg orally 3 times every day and added metoprolol 25 mg orally twice every day. Pain control discussed with family members, patient is to receive Tylenol, scheduled with Lidoderm patches scheduled, when necessary [place]. She was at the scheduled [place] dose for a few weeks until this was changed to a when necessary dosing 5. Hypothyroidism. Continue Synthroid 75 g orally once every day. 6. Diabetes mellitus type 2. Continue patient on metformin 1000 g orally twice every day along with a sliding scale insulin, continue glyburide 4 mg orally twice every day, continue BJM before each meal and at bedtime. 7. Parkinsonism. Continue patient on Sinemet 2 tablets orally 3 times every day, she is under the care of Dr. Persaud at this time. 8. Steroid-induced psychosis. Continue the patient on the Depakote 50 mg orally twice every day. 9. Bilateral lower extremity neuropathy continue the patient on gabapentin 100 mg orally twice every day. 10. DVT prophylaxis. Continue heparin 5000 units of convinced every 12 hours. 11. Adrenal insufficiency. Continue patient on Cortef 15 mg in the morning and 5 mg in evening. 12. GI prophylaxis. Continue Protonix 40 mg orally once every day. 13. Patient is full code. 14. Emesis without abdominal pain. Zofran added gastroparesis is entertained, however biliary dyskinesia cannot be ruled out at this time, patient would undergo ultrasound of the abdomen along with HIDA scan should there be no gallbladder stones noted, anticipate discharge to [facility] on Friday. Discharge plan: Return to [facility] on day
--- NOTE | 2017-02-23 19:50 | US ---
EXAMINATION TYPE: US abdomen complete DATE OF EXAM: 02/23/2017 COMPARISON: NONE CLINICAL HISTORY: recurrent nausea , abdominal pain . EXAM MEASUREMENTS: Liver Length: 19 cm Gallbladder Wall: 0.3 cm CBD: 0.5 cm Spleen: 14.1 cm Right Kidney: 10.6 x 3.9 x 4.7 cm Left Kidney: 10.2 x 5.0 x 4.7 cm Limited examination due to pt had to drink orange juice in the morning because of low blood sugar. Al so pt unable to roll onto sides or hold breath. Pancreas: obscured by bowel gas parts visualized appears wnl Liver: measures large Gallbladder: wnl Evidence for sonographic Calvert's sign: no CBD: wnl Spleen: measures large Right Kidney: prominent rt renal pelvis questionable hydronephrosis Left Kidney: wnl Upper IVC: wnl Abd Aorta: wnl The liver is homogenous. The intrahepatic portion of the IVC and proximal abdominal aorta are within normal limits. There is no evidence of cholelithiasis. Common bile duct is unremarkable. The visu alized portions of the pancreas are homogenous. The spleen measures large. Right renal pelvis appear s prominent possible hydronephrosis. No renal lesions are seen. IMPRESSION: 1. The spleen appears large. 2. Prominent right renal collecting system could be due to mild right side hydronephrosis.
[2017-02-23 20:59] LABS: Glucose,Whole Blood 169 mg/dL (75-99)
[2017-02-23] MEDS: MELATONIN 3 MG TABLET PO SCH (21:40)
[2017-02-24] MEDS: LEVOTHYROXINE 75 MCG TAB PO SCH (05:30)
[2017-02-24] MEDS: metFORMIN 500 MG TAB PO SCH ×2 (08:04→16:34)
[2017-02-24] MEDS: INSULIN LISPRO (humaLOG) 300 UNIT/3 ML VIAL SQ SCH ×4 (08:04→21:35)
--- NOTE | 2017-02-24 09:25 | NM ---
EXAMINATION TYPE: NM hepatobiliary w EF DATE OF EXAM: 02/24/2017 COMPARISON: NONE HISTORY: Recurrent nausea and abdominal pain TECHNIQUE: After the intravenous administration of 5.5 mCi Tc 99m Mebrofenin hepatobiliary scintigrap hy is performed. Immediate images post injection. FINDINGS: There is satisfactory initial accumulation of tracer by the liver. The gallbladder is visualized wit hin 30 minutes. The small bowel activity is noted within 40 minutes. At one hour 8 ounces of oral e nsure plus is given to mimic CCK and gallbladder ejection fraction is calculated at 89 %. IMPRESSION: Elevated gallbladder ejection fraction may reflect hypercontractile state.
[2017-02-24 09:32] LABS: Glucose,Whole Blood 103 mg/dL (75-99)
[2017-02-24] MEDS: PANTOPRAZOLE 40 MG TABLET PO SCH (10:23)
[2017-02-24] MEDS: ACETAMINOPHEN TAB 325 MG TAB PO SCH ×2 (10:23→21:01)
[2017-02-24] MEDS: ASPIRIN 81 MG CHEW PO SCH (10:24)
[2017-02-24] MEDS: amLODIPine 5 MG TAB PO SCH ×2 (10:24→20:56)
[2017-02-24] MEDS: CARBIDOPA-LEVODOPA 25-100 MG 1 EACH TAB PO SCH ×3 (10:25→20:58)
[2017-02-24] MEDS: CHLORTHALIDONE 25 MG TAB PO SCH (10:25)
[2017-02-24] MEDS: CYANOCOBALAMIN 500 MCG TAB PO SCH (10:26)
[2017-02-24] MEDS: CLOPIDOGREL 75 MG TAB PO SCH (10:26)
[2017-02-24] MEDS: DIVALPROEX 250 MG TABLET.DR PO SCH ×2 (10:26→21:01)
[2017-02-24] MEDS: GLIMEPIRIDE 4 MG TAB PO SCH ×2 (10:27→16:34)
[2017-02-24] MEDS: HEPARIN SODIUM,PORCINE 5,000 UNIT/ML 1 ML VIAL SQ SCH ×3 (10:27→21:02)
[2017-02-24] MEDS: HYDROCORTISONE 10 MG TAB PO SCH ×2 (10:28→16:34)
[2017-02-24] MEDS: hydrALAZINE HCL 50 MG TAB PO SCH ×3 (10:28→20:58)
[2017-02-24] MEDS: LIDOCAINE 5% PATCH TOPICAL SCH (10:29)
[2017-02-24] MEDS: METOPROLOL TARTRATE 25 MG TAB PO SCH ×2 (10:30→20:57)
[2017-02-24] MEDS: LIOTHYRONINE SODIUM 5 MCG TAB PO SCH (10:30)
[2017-02-24] MEDS: VALSARTAN 160 MG TAB PO SCH (10:31)
[2017-02-24] MEDS: predniSONE 5 MG TAB PO SCH (10:31)
[2017-02-24] MEDS: SENNOSIDES-DOCUSATE SODIUM 1 EACH TAB PO SCH (10:31)
[2017-02-24 12:02] LABS: Basophils % (A) 0 %; CH 27.7; CHCM 32.5; Eosinophils # (A) 0.1 k/uL (0-0.7); Eosinophils % (A) 2 %; HCT 38.9 % (34.0-46.0); HDW 2.69; HGB 12.8 gm/dL (11.4-16.0); Luc # (Auto) 0.16; Luc % (Auto) 2; Lymphocytes # (A) 1.9 k/uL (1.0-4.8); Lymphocytes % (A) 26 %; MCH 28.3 pg (25.0-35.0); MCV 85.8 fL (80.0-100.0); Mean Platelet Volume 8.4; Monocytes # (A) 0.4 k/uL (0-1.0); Monocytes % (A) 6 %; Neutrophils # (A) 4.8 k/uL (1.3-7.7); Neutrophils % (A) 65 %; RBC 4.54 m/uL (3.80-5.40); WBC 7.4 k/uL (3.8-10.6); WBC (Perox) 7.83
[2017-02-24 12:33] LABS: Glucose,Whole Blood 205 mg/dL (75-99)
[2017-02-24 12:35] LABS: ALT 14 U/L (9-52); AST 25 U/L (14-36); Alkaline Phosphatase 59 U/L (38-126); Anion Gap 11 mmol/L; Blood Urea Nitrogen 10 mg/dL (7-17); Calcium 9.3 mg/dL (8.4-10.2); Carbon Dioxide 22 mmol/L (22-30); Chloride 105 mmol/L (98-107); Glucose 154 mg/dL (74-99); Non-African American GFR(MDRD) >60 (>60 ml/min/1.73 sqM); Potassium 4.4 mmol/L (3.5-5.1); Sodium 138 mmol/L (137-145); Total Bilirubin 0.4 mg/dL (0.2-1.3); Total Protein 6.7 g/dL (6.3-8.2)
--- NOTE | 2017-02-24 15:09 | P.PN ---
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 Also was seen by physiatry and orthopedic for mild to moderate spinal stenosis of the lumbar spine did not require any surgery. Patient has been seen Dr. Marcus's last few month she apparently has been having significant decreased mobility with multiple fall abnormal balance and gait and worsening encephalopathy. Patient presented to the emergency department by a family late on 12/07/2016 not been able to ambulate and walk and severe weakness of the lower extremity becomes sudden that day. Patient was seen and evaluated her testing in the emergency room did not show initially any major abnormality. CAT scan of the brain showed no acute intracranial abnormality. 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 Dr. Mcdaniels was called to see patient in the emergency department and order IVIG after LP was ordered to be done for spinal fluid analysis. Patient was admitted to the hospital after her LP done, patient subsequent was sent to [facility] for evaluation by neurology and then she was admitted to [facility] on the [place], and she has been under the care of Dr. Marcus, patient was sent yesterday after she was experiencing what appeared to be a tonic-clonic seizure, patient became somewhat post ictal with mental status changes, her urinalysis was normal ended up going for a computed tomography scan of the brain that was negative for acute abnormalities it did show small vessel disease, patient was admitted to the hospital she will be seen in consultation by neurology and subsequently the patient will have EEG done, patient may need to be started on Keppra 500 mg orally twice every day further evaluation. 02/20: Patient has been seen by Dr. Powers and he doubts this is seizure activity. EEG is considered within normal limits. Patient's mental status is at her baseline. She has had no seizure activity/tremors since admission. Blood pressures improved with multiple changes addressed. We will plan to monitor the patient overnight and anticipate discharge by tomorrow. 02/21: Patient's blood pressure remains elevated for which we have added in amlodipine 5 mg daily. At this time the changes have been to increase hydralazine to 100 mg 3 times daily, metoprolol 25 mg twice daily added along with the Norvasc. This afternoon, prior to being prepared for discharge back to [facility], patient vomited so discharge was held. Patient denies any headache , chest pain, shortness of breath. C. difficile toxin was negative. 02/22: Patient's discharge was held secondary to episodes of vomiting, patient has recurrent nausea for several weeks now, we have decided to keep the patient to investigate this further, abdominal ultrasound obtained including a HIDA scan with CCK, underlying gastroparesis cannot be ruled out secondary to long- standing diabetes mellitus, blood pressure remains to be elevated, pain control was discussed with family members this time, Tylenol will be added scheduled with when necessary hydrocodone, patient is going to also start on Lidoderm patches for the right back area patient had MRI imaging in November 2016 with no spinal stenosis noted 02/23: Patient continues to be without any symptoms, no nausea no vomiting, back pain has improved with scheduled Tylenol, along with Lidoderm them patches, ultrasound results are currently pending, we'll going to obtain HIDA scan with CCK in the morning if the bladder ultrasound are without stones. Anticipate discharge to [facility] in the morning 02/24: Abdominal ultrasound shows an enlarged spleen and prominent right renal collecting system due to mild right-sided hydronephrosis for which consult has been added for Dr. Elliott. Liver function tests remain elevated for which HIDA scan is showing elevated gallbladder ejection fraction reflect hypercontractile state. EF is 89%. Patient refused all of her medications this morning and told the nurse she was just tired of doing everyone tells her to do. Anticipate she'll be ready for discharge back to [facility] tomorrow. Objective - Vital Signs Vital signs: Vital Signs Temp 97.8 F 02/24/17 07:00 Pulse 67 02/24/17 07:00 Resp 16 02/24/17 07:00 BP 123/74 02/24/17 07:00 Pulse Ox 97 02/24/17 07:00 Intake & Output 02/23/17 02/24/17 02/24/17 18:59 06:59 18:59 Intake Total 500 Balance 500 Intake: Oral 500 Other: Voiding Method Incontinent # Voids 1 4 - Exam General appearance: Present: cooperative, no acute distress - EENT Eyes: Present: anicteric sclerae, EOMI, dentition normal, normal appearance ENT: Present: NA/AT, normal oropharynx - Neck Neck: Present: normal ROM. Absent: lymphadenopathy, other, rigidity, stridor, thyromegaly - Respiratory Respiratory: bilateral: CTA, negative: diminished, dullness, rales - Cardiovascular Rhythm: regular Heart sounds: normal: S1, S2 Abnormal Heart Sounds: Absent: systolic murmur, diastolic murmur, rub, S3 Gallop , S4 Gallop, click, other - Gastrointestinal General gastrointestinal: Present: normal bowel sounds, soft - Integumentary Integumentary: Present: normal, normal turgor - Neurologic Neurologic: Present: CNII-XII intact - Musculoskeletal Musculoskeletal: Present: gait normal, strength equal bilaterally - Psychiatric Psychiatric: Present: A&O x's 3, appropriate affect, intact judgment & insight - Labs CBC & Chem 7: 02/24/17 11:12 02/24/17 11:12 Labs: Abnormal Lab Results - Last 24 Hours (Table) 02/23/17 02/23/17 02/24/17 Range/Units 17:18 20:38 09:26 Glucose (74-99) mg/dL POC Glucose (mg/dL) 136 H 169 H 103 H (75-99) mg/dL 02/24/17 02/24/17 Range/Units 11:12 12:31 Glucose 154 H (74-99) mg/dL POC Glucose (mg/dL) 205 H (75-99) mg/dL Assessment and Plan Plan: 1. Encephalopathy thought to be due to hypertensive encephalopathy versus possible seizure. Place the patient on seizure precaution, neuro check every 2 hours for the next 24 hours, neurology evaluation, patient did have an ultrasound of the carotid few months ago that was negative, patient will be seen and evaluated by neurology and further recommendations to follow. Adjust her blood pressure medicine with increasing hydralazine to 100 mg orally 3 times every day and adding metoprolol 25 mg orally twice every day. 2. Severe weakness in both lower extremities with spasticity patient was seen and evaluated at [facility] was thought that the patient is having giant cell arteritis and Dr. Marcus is in the process of weaning her off the prednisone she is currently on 5 mg orally once every day. 3. History of giant cell arteritis. Was seen by the [facility] she has been maintained on prednisone 5 mg orally once every day. 4. Hypertension and hypertensive cardiovascular disease. We will continue the patient on Diovan 320 mg orally once every day. As well as Norvasc 5 mg orally once every day, I have increase her hydralazine 100 mg orally 3 times every day and added metoprolol 25 mg orally twice every day. Pain control discussed with family members, patient is to receive Tylenol, scheduled with Lidoderm patches scheduled, when necessary [place]. She was at the scheduled [place] dose for a few weeks until this was changed to a when necessary dosing 5. Hypothyroidism. Continue Synthroid 75 g orally once every day. 6. Diabetes mellitus type 2. Continue patient on metformin 1000 g orally twice every day along with a sliding scale insulin, continue glyburide 4 mg orally twice every day, continue BJM before each meal and at bedtime. 7. Parkinsonism. Continue patient on Sinemet 2 tablets orally 3 times every day, she is under the care of Dr. Persaud at this time. 8. Steroid-induced psychosis. Continue the patient on the Depakote 50 mg orally twice every day. 9. Bilateral lower extremity neuropathy continue the patient on gabapentin 100 mg orally twice every day. 10. DVT prophylaxis. Continue heparin 5000 units of convinced every 12 hours. 11. Adrenal insufficiency. Continue patient on Cortef 15 mg in the morning and 5 mg in evening. 12. GI prophylaxis. Continue Protonix 40 mg orally once every day. 13. Patient is full code. 14. Emesis without abdominal pain. Zofran added. Patient underwent HIDA scan showing biliary hyperkinesia. Low-fat diet. 15. Hydronephrosis on ultrasound. Dr. Elliott consult requested. Discharge plan: Return to [facility] tomorrow Impression and plan of care have been directed as dictated by the signing physician. Iona Prajapati nurse practitioner acting as scribe for signing physician..
[2017-02-24 15:29] VITALS: RESP 18
[2017-02-24] MEDS: GABAPENTIN 100 MG CAP PO SCH ×2 (16:34→20:57)
--- NOTE | 2017-02-24 16:35 | P.GSCN ---
History of Present Illness Consult date: 02/24/17 Reason for Consult: Right hydronephrosis History of present illness: The patient is a 71-year-old female who resides at [facility] on [facility] who was admitted on 02/20/2017 for evaluation of a possible seizure. Neurologic evaluation including a computed tomography scan of the brain showed no abnormalities and it was felt that it is unlikely the patient actually did suffer a seizure. The patient was noted to have an episode of nausea and vomiting yesterday and further evaluation with an abdominal ultrasound was obtained. This suggested fullness of the right renal pelvis. No previous imaging of the abdomen was available for comparison. The patient says she's had no further nausea or vomiting and currently denies any abdominal pain. She denies any history of gross hematuria or urolithiasis. She denies frequency or incontinence but is currently wearing diapers. According to her nurse she usually voids frequently and in relatively large amounts. Review of Systems The patient appears to be an unreliable historian and so the review of systems would not be pertinent. - Gastrointestinal Reports as per HPI Past Medical History Past Medical History: Coronary Artery Disease (CAD), Dementia, Diabetes Mellitus , Hyperlipidemia, Hypertension, Osteoarthritis (OA), Thyroid Disorder Additional Past Medical History / Comment(s): Parkinson's disease History of Any Multi-Drug Resistant Organisms: None Reported Additional Past Surgical History / Comment(s): carotid gland surgery. The patient has a lower abdominal midline incision but denies a previous hysterectomy or section. Past Anesthesia/Blood Transfusion Reactions: Unable to Obtain Past Psychological History: No Psychological Hx Reported Additional Psychological History / Comment(s): Dementia Smoking Status: Former smoker (patient smoked about 5-6 cigarettes on a daily basis for a few years and she quit when very young) Past Alcohol Use History: None Reported Past Drug Use History: None Reported - Past Family History Father History Unknown: Yes Family Medical History: CVA/TIA, Diabetes Mellitus (father at age of 62 from CVA and diabetes mellitus complications) Mother Family Medical History: No Reported History (mother at age 93 from old age. ) Brother(s) Family Medical History: Coronary Artery Disease (CAD) (patient had 3 brothers one from CVA the other 2 from CAD.), CVA/TIA Sister(s) Family Medical History: Cancer (patient had 6 sisters one of her sisters from CAD and lung cancer the rest are alive no major medical problems.), Coronary Artery Disease (CAD) Son(s) Family Medical History: No Reported History (patient has one son no major medical problems.) Daughter(s) Family Medical History: No Reported History (patient has 2 daughters no major medical problems.) Medications and Allergies Home Medications Medication Instructions Recorded Confirmed Type Levothyroxine Sodium [Synthroid] 75 mcg PO QAM 12/07/16 02/18/17 History Acetaminophen Tab [Tylenol] 650 mg PO Q4H PRN 02/18/17 02/18/17 History Aspirin 81 mg PO DAILY 02/18/17 02/18/17 History Carbidopa-Levodopa 25-100 mg 2 tab PO TID 02/18/17 02/18/17 History [Sinemet 25-100 mg] Clopidogrel [Plavix] 75 mg PO DAILY 02/18/17 02/18/17 History Cyanocobalamin [Vitamin B-12] 500 mcg PO DAILY 02/18/17 02/18/17 History Diclofenac Sodium [Voltaren Gel] 4 gram TOPICAL TID PRN 02/18/17 02/18/17 History Divalproex [Depakote] 250 mg PO BID 02/18/17 02/18/17 History Gabapentin [Neurontin] 100 mg PO BID@1700,2100 02/18/17 02/18/17 History Glimepiride [Amaryl] 4 mg PO BID@0900,1700 02/18/17 02/18/17 History Hydrocortisone 5 mg PO DAILY@1700 02/18/17 02/18/17 History Hydrocortisone [Cortef] 15 mg PO DAILY@0900 02/18/17 02/18/17 History Liothyronine Sodium [Cytomel] 5 mcg PO DAILY 02/18/17 02/18/17 History Melatonin 6 mg PO HS 02/18/17 02/18/17 History Omeprazole [PriLOSEC] 20 mg PO DAILY 02/18/17 02/18/17 History Sennosides-Docusate Sodium 1 tab PO DAILY 02/18/17 02/18/17 History [Senokot-S] Valsartan 320 mg PO DAILY 02/18/17 02/18/17 History metFORMIN HCL 1,000 mg PO BID 02/18/17 02/18/17 History predniSONE 5 mg PO DAILY 02/18/17 02/18/17 History Allergies Allergy/AdvReac Type Severity Reaction Status Date / Time codeine AdvReac Nausea & Verified 02/18/17 19:56 Vomiting morphine AdvReac Nausea & Verified 02/18/17 19:56 Vomiting Surgical - Exam Vital Signs Temp Pulse Resp BP Pulse Ox 97.7 F 101 H 18 168/93 98 02/18/17 19:56 02/18/17 19:56 02/18/17 19:56 02/18/17 19:56 02/18/17 19:56 - General no distress, obese - Respiratory normal respiratory effort - Abdomen Abdomen: soft, non tender, surgical scars (Midline incision suprapubic area) Results - Labs 02/24/17 11:12 02/24/17 11:12 Abnormal Lab Results - Last 24 Hours (Table) 02/23/17 02/23/17 02/24/17 Range/Units 17:18 20:38 09:26 Glucose (74-99) mg/dL POC Glucose (mg/dL) 136 H 169 H 103 H (75-99) mg/dL 02/24/17 02/24/17 Range/Units 11:12 12:31 Glucose 154 H (74-99) mg/dL POC Glucose (mg/dL) 205 H (75-99) mg/dL Diabetes panel 02/24/17 Range/Units 11:12 Sodium 138 (137-145) mmol/L Potassium 4.4 (3.5-5.1) mmol/L Chloride 105 (98-107) mmol/L Carbon Dioxide 22 (22-30) mmol/L BUN 10 (7-17) mg/dL Creatinine 0.89 (0.52-1.04) mg/dL Glucose 154 H (74-99) mg/dL Calcium 9.3 (8.4-10.2) mg/dL AST 25 (14-36) U/L ALT 14 (9-52) U/L Alkaline Phosphatase 59 (38-126) U/L Total Protein 6.7 (6.3-8.2) g/dL Albumin 3.7 (3.5-5.0) g/dL Calcium panel 02/24/17 Range/Units 11:12 Calcium 9.3 (8.4-10.2) mg/dL Albumin 3.7 (3.5-5.0) g/dL Pituitary panel 02/24/17 Range/Units 11:12 Sodium 138 (137-145) mmol/L Potassium 4.4 (3.5-5.1) mmol/L Chloride 105 (98-107) mmol/L Carbon Dioxide 22 (22-30) mmol/L BUN 10 (7-17) mg/dL Creatinine 0.89 (0.52-1.04) mg/dL Glucose 154 H (74-99) mg/dL Calcium 9.3 (8.4-10.2) mg/dL Adrenal panel 02/24/17 Range/Units 11:12 Sodium 138 (137-145) mmol/L Potassium 4.4 (3.5-5.1) mmol/L Chloride 105 (98-107) mmol/L Carbon Dioxide 22 (22-30) mmol/L BUN 10 (7-17) mg/dL Creatinine 0.89 (0.52-1.04) mg/dL Glucose 154 H (74-99) mg/dL Calcium 9.3 (8.4-10.2) mg/dL Total Bilirubin 0.4 (0.2-1.3) mg/dL AST 25 (14-36) U/L ALT 14 (9-52) U/L Alkaline Phosphatase 59 (38-126) U/L Total Protein 6.7 (6.3-8.2) g/dL Albumin 3.7 (3.5-5.0) g/dL Assessment and Plan (1) Hydronephrosis Narrative/Plan: I reviewed the patient's abdominal ultrasound and she does appear to have mild dilation of the right intrarenal collecting system. She has normal renal function and it's unclear if this is a new finding or chronic. The patient does not appear to have any pain related to this. Bladder scan will be done to check a postvoid residual to ensure the patient is voiding completely as she has intermittent incontinence. If this is normal then I would suggest a follow- up renal ultrasound in 6 months. Status: Acute
[2017-02-24 17:18] LABS: Glucose,Whole Blood 136 mg/dL (75-99)
[2017-02-24 20:48] LABS: Glucose,Whole Blood 158 mg/dL (75-99)
[2017-02-24] MEDS: MELATONIN 3 MG TABLET PO SCH (20:57)
[2017-02-25] MEDS: LEVOTHYROXINE 75 MCG TAB PO SCH (05:45)
[2017-02-25 07:21] LABS: Glucose,Whole Blood 92 mg/dL (75-99)
[2017-02-25 07:24] VITALS: BP 181/92; PULSE 77; TEMP 97.3
[2017-02-25] MEDS: amLODIPine 5 MG TAB PO SCH (08:41)
[2017-02-25] MEDS: hydrALAZINE HCL 50 MG TAB PO SCH ×2 (08:41→15:19)
[2017-02-25] MEDS: GLIMEPIRIDE 4 MG TAB PO SCH (08:41)
[2017-02-25] MEDS: LIOTHYRONINE SODIUM 5 MCG TAB PO SCH (08:42)
[2017-02-25] MEDS: CARBIDOPA-LEVODOPA 25-100 MG 1 EACH TAB PO SCH ×2 (08:42→15:19)
[2017-02-25] MEDS: predniSONE 5 MG TAB PO SCH (08:42)
[2017-02-25] MEDS: CLOPIDOGREL 75 MG TAB PO SCH (08:42)
[2017-02-25] MEDS: metFORMIN 500 MG TAB PO SCH (08:42)
[2017-02-25] MEDS: VALSARTAN 160 MG TAB PO SCH (08:42)
[2017-02-25] MEDS: DIVALPROEX 250 MG TABLET.DR PO SCH (08:43)
[2017-02-25] MEDS: HYDROCORTISONE 10 MG TAB PO SCH (08:43)
[2017-02-25] MEDS: METOPROLOL TARTRATE 25 MG TAB PO SCH (08:43)
[2017-02-25] MEDS: HEPARIN SODIUM,PORCINE 5,000 UNIT/ML 1 ML VIAL SQ SCH (08:43)
[2017-02-25] MEDS: PANTOPRAZOLE 40 MG TABLET PO SCH (08:44)
[2017-02-25] MEDS: CHLORTHALIDONE 25 MG TAB PO SCH (08:44)
[2017-02-25] MEDS: INSULIN LISPRO (humaLOG) 300 UNIT/3 ML VIAL SQ SCH ×2 (08:44→12:40)
[2017-02-25] MEDS: ASPIRIN 81 MG CHEW PO SCH (08:44)
[2017-02-25] MEDS: SENNOSIDES-DOCUSATE SODIUM 1 EACH TAB PO SCH (08:44)
[2017-02-25] MEDS: ACETAMINOPHEN TAB 325 MG TAB PO SCH (08:45)
[2017-02-25] MEDS: CYANOCOBALAMIN 500 MCG TAB PO SCH (08:45)
[2017-02-25] MEDS: LIDOCAINE 5% PATCH TOPICAL SCH (08:46)
[2017-02-25 10:02] LABS: Basophils # (A) 0.1 k/uL (0-0.2); Basophils % (A) 1 %; CHCM 32.7; Eosinophils # (A) 0.1 k/uL (0-0.7); Eosinophils % (A) 1 %; HCT 39.4 % (34.0-46.0); HDW 2.67; HGB 13.3 gm/dL (11.4-16.0); Luc # (Auto) 0.18; Luc % (Auto) 2; Lymphocytes # (A) 2.4 k/uL (1.0-4.8); Lymphocytes % (A) 30 %; MCHC 33.7 g/dL (31.0-37.0); Mean Platelet Volume 9.2; Monocytes # (A) 0.4 k/uL (0-1.0); Monocytes % (A) 6 %; Neutrophils # (A) 4.9 k/uL (1.3-7.7); Neutrophils % (A) 61 %; RBC 4.59 m/uL (3.80-5.40); RDW 14.1 % (11.5-15.5); WBC 8.1 k/uL (3.8-10.6)
[2017-02-25 12:25] LABS: Glucose,Whole Blood 124 mg/dL (75-99)
== END 2017-02-25 17:06 | DRG 101 ==
LOC: EC 19:41 → EEVIPCON 19:41 → 4MS4W 23:20 → OBSVTOIN 02-20 11:00
PROVIDERS: ADMIT Internal Medicine; ATTEND Internal Medicine
DX: G40.409 Other generalized epilepsy and epileptic syndromes, not intractable, without status epilepticus (principal); G37.3 Acute transverse myelitis in demyelinating disease of central nervous system; I67.4 Hypertensive encephalopathy; E27.40 Unspecified adrenocortical insufficiency; N13.30 Unspecified hydronephrosis; K31.84 Gastroparesis; M31.6 Other giant cell arteritis; G20 Parkinson's disease; E11.40 Type 2 diabetes mellitus with diabetic neuropathy, unspecified; E11.43 Type 2 diabetes mellitus with diabetic autonomic (poly)neuropathy; R16.1 Splenomegaly, not elsewhere classified; I11.9 Hypertensive heart disease without heart failure; F03.90 Unspecified dementia, unspecified severity, without behavioral disturbance, psychotic disturbance, mood disturbance, and anxiety; M48.06 Spinal stenosis, lumbar region; E03.9 Hypothyroidism, unspecified; F29 Unspecified psychosis not due to a substance or known physiological condition; T38.0X5A Adverse effect of glucocorticoids and synthetic analogues, initial encounter; R32 Unspecified urinary incontinence; E78.5 Hyperlipidemia, unspecified; I25.10 Atherosclerotic heart disease of native coronary artery without angina pectoris; M19.91 Primary osteoarthritis, unspecified site; Z87.891 Personal history of nicotine dependence; Z79.82 Long term (current) use of aspirin; Z79.02 Long term (current) use of antithrombotics/antiplatelets; Z79.84 Long term (current) use of oral hypoglycemic drugs; Z79.52 Long term (current) use of systemic steroids; Z79.899 Other long term (current) drug therapy; Z88.5 Allergy status to narcotic agent
CPT/HCPCS: 36415; 70450; 71020; 76700; 78226; 80053; 80061; 81001; 82550; 82553; 83036; 83690; 84484; 85025; 85610; 85730; 87324; 93005; 94760; 95819; 96360; 96361; 99285

== ENCOUNTER → 2017-08-04 | Outpatient (CLI) | payer MEDICARE, OTHER ==
--- NOTE | 2017-08-04 15:59 | CT ---
EXAMINATION TYPE: CT pelvis w con DATE OF EXAM: 08/04/2017 COMPARISON: NONE HISTORY: 71 year-old female anal spasm, complains of incontinence. TECHNIQUE: Contiguous axial scanning of the pelvis following administration of 80 ml Visipaque 320 IV contrast. Delayed images through the bladder and coronal/sagittal reconstructions performed. CT DLP: 1208 mGycm Automated exposure control for dose reduction was used. FINDINGS: Visualized lower abdomen shows moderate stool burden without pericolonic prematurity. Prominent bile duct measuring 1 cm on coronal series may be chronic in this patient. Correlate with alkaline phospha tase and bilirubin levels. No mesenteric or retroperitoneal lymphadenopathy. No dilated small bowel, free fluid, or free air. There is focal annular narrowing at the distal sigmoid, axial image 36, coronal image 56, and sagitta l image 56. There may be mild associated wall thickening on the sagittal series. Prominent stool within the rectum distending it to 7.3 cm wide. Trace presacral edema is present. The uterus is pushed towards the left as is the patient's pessary ring. Normal size ovaries. No abnormal fluid collection in the pelvis. Mild circumferential bladder wall thickening. Bones: No osseous destructive process seen. IMPRESSION: 1. LARGE AMOUNT OF STOOL IN THE RECTUM DISTENDING IT IS 7.3 CM WIDE. CORRELATE TO EXCLUDE FECAL IMPAC TION. 2. THE RECTAL DISTENTION PUSHES THE PATIENT'S UTERUS AND PESSARY RING TO THE LEFT. 3. FOCAL ANNULAR NARROWING AT THE DISTAL SIGMOID MAY BE SECONDARY TO PROMINENT PERISTALTIC CONTRACTIO N OR SPASM BUT PERSISTS ON THE 4 MINUTE DELAYED IMAGES. RECOMMEND DIRECT VISUALIZATION TO EXCLUDE AN UNDERLYING ANNULAR LESION. 4. MILD CIRCUMFERENTIAL BLADDER WALL THICKENING. CORRELATE TO EXCLUDE CYSTITIS.
== END | disposition home or self-care (01) ==
LOC: RADCTMAIN 13:36
PROVIDERS: ATTEND Family Medicine
DX: K56.699 Other intestinal obstruction unspecified as to partial versus complete obstruction (principal); N32.89 Other specified disorders of bladder
CPT/HCPCS: 82565; 84520; 72193; 36415; Q9967

== ENCOUNTER → 2017-09-03 | Day surgery (SDC) | payer MEDICARE, OTHER ==
[2017-09-01 13:44] VITALS: BMI 35.2
[~2017-09-03] MED LIST: LACTATED RINGERS 1,000 ML IV ONE; LACTATED RINGERS 1,000 ML IV SCH; LIDOCAINE 1% 20 ML VIAL (10MG/ML) FOR IV START INTRADERMA PRN; LIDOCAINE 1% INJ 10MG/ML (20 ML MDV) ONE; PROPOFOL 10 MG/ML 20 ML VIAL IV ONE
[2017-09-03 08:21] VITALS: TEMP 98.4
--- NOTE | 2017-09-03 09:04 | P.PCN ---
Date of Procedure: 09/03/17 Procedure(s) Performed: PREOPERATIVE DIAGNOSIS: Change in bowel habits POSTOPERATIVE DIAGNOSIS: Small sigmoid colon polyp PROCEDURE: Colonoscopy with biopsy ANESTHESIA: MAC SURGEON: Lincoln Walsh M.D. SPECIMENS: Sigmoid colon polyp ENDOSCOPIC PROCEDURE: The patient was placed on the endoscopy table in the left decubitus position. The Olympus colonoscope was inserted into the anus and passed under direct visualization to the base of the cecum. The appendiceal orifice was visualized. From that point the scope was slowly withdrawn inspecting all surfaces carefully. There were no neoplastic inflammatory or polypoid lesions throughout the cecum, ascending, transverse, and descending colon. In the sigmoid a small polyp was identified and removed using the cold biopsy forceps. The remainder of the sigmoid and rectum appeared normal. There was no visible diverticulosis. Digital rectal examination and vaginal examination were otherwise normal. I was unable to palpate a pessary. The patient was taken to the recovery room in stable condition per anesthesia guidelines. RECOMMENDATIONS: Await biopsy results. Consider gynecologic evaluation.
[2017-09-03 09:08] VITALS: RESP 16
[2017-09-03 09:19] VITALS: BP 102/58; PULSE 78
== END ==
LOC: ORWHC2ENDO 07:44
PROVIDERS: ATTEND Surgery
DX: K56.41 Fecal impaction (principal); K63.5 Polyp of colon; Z80.0 Family history of malignant neoplasm of digestive organs; G93.41 Metabolic encephalopathy; F03.90 Unspecified dementia, unspecified severity, without behavioral disturbance, psychotic disturbance, mood disturbance, and anxiety; F39 Unspecified mood [affective] disorder; I25.10 Atherosclerotic heart disease of native coronary artery without angina pectoris; I10 Essential (primary) hypertension; M19.90 Unspecified osteoarthritis, unspecified site; E03.9 Hypothyroidism, unspecified; G91.2 (Idiopathic) normal pressure hydrocephalus; E11.42 Type 2 diabetes mellitus with diabetic polyneuropathy; Z79.84 Long term (current) use of oral hypoglycemic drugs; E78.5 Hyperlipidemia, unspecified; M31.6 Other giant cell arteritis; R56.9 Unspecified convulsions; G20 Parkinson's disease; Z79.02 Long term (current) use of antithrombotics/antiplatelets; Z79.82 Long term (current) use of aspirin; Z79.891 Long term (current) use of opiate analgesic; Z79.52 Long term (current) use of systemic steroids; Z79.899 Other long term (current) drug therapy; Z88.5 Allergy status to narcotic agent
CPT/HCPCS: 88305; 45380; J2001; J2704

== ENCOUNTER → 2018-01-06 | Outpatient (CLI) | payer MEDICARE ==
--- NOTE | 2018-01-06 16:34 | US ---
EXAMINATION TYPE: US kidneys/renal and bladder DATE OF EXAM: 01/06/2018 COMPARISON: Complete abdominal ultrasound February 23, 2017 CLINICAL HISTORY: N17.9 Acute kidney failure unspecified. abnormal labs, patient is very confused and seemed unaware of bladder prep EXAM MEASUREMENTS: Right Kidney: 11.0 x 4.4 x 4.0 cm Left Kidney: 9.2 x 4.7 x 3.6 cm Right Kidney: No hydronephrosis or masses seen Left Kidney: No hydronephrosis or masses seen Bladder: patient did not prep for exam and seemed confused regarding prep There is no evidence for hydronephrosis at this point in time. No nephrolithiasis is seen. No faye s are identified on images saved. The urinary bladder is poorly distended and thus suboptimally eval uated. IMPRESSION: Suboptimal study without hydronephrosis identified bilaterally.
== END | disposition home or self-care (01) ==
LOC: RADUSWWP 15:58
PROVIDERS: ATTEND Family Medicine
DX: N17.9 Acute kidney failure, unspecified (principal)
CPT/HCPCS: 76770

== ENCOUNTER 2018-01-25 21:46 | Observation (INO) | payer MEDICARE ==
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
[2018-01-25 22:29] LABS: Basophils % (A) 0 %; Eosinophils % (A) 0 %; HGB 9.5 gm/dL (11.4-16.0); Hypochromasia Slight; Lymphocytes # (A) 1.5 k/uL (1.0-4.8); Lymphocytes % (A) 16 %; MCHC 31.8 g/dL (31.0-37.0); MCV 88.2 fL (80.0-100.0); Mean Platelet Volume 7.2; Monocytes # (A) 0.4 k/uL (0-1.0); Monocytes % (A) 4 %; Neutrophils # (A) 7.4 k/uL (1.3-7.7); Neutrophils % (A) 77 %; Platelet Count 278 k/uL (150-450); RDW 14.9 % (11.5-15.5); WBC 9.6 k/uL (3.8-10.6)
[2018-01-25 22:36] LABS: Appearance,Urine Clear (Clear); Bilirubin,Urine Negative (Negative); Blood,Urine Negative (Negative); Color,Urine Dark Yellow; Glucose,Urine (UA) Negative (Negative); Ketones,Urine Trace (Negative); Leukocyte Esterase,Urine Negative (Negative); Nitrite,Urine Negative (Negative); PH, Urine 5.5 (5.0-8.0); Protein,Urine Trace (Negative); Urobilinogen,Urine <2.0 mg/dL (<2.0)
[2018-01-25 22:40] LABS: Albumin 4.1 g/dL (3.5-5.0); Amphetamine Screen,Urine Not Detected (NotDetected); Barbiturate Screen,Urine Not Detected (NotDetected); Benzodiazepines Screen,Urine Detected (NotDetected); Calcium 9.2 mg/dL (8.4-10.2); Cocaine Screen,Urine Not Detected (NotDetected); Methadone Screen, Urine Not Detected (NotDetected); Opiate Screen,Urine Detected (NotDetected); Oxycodone Screen, Urine Not Detected (NotDetected); Phencyclidine Screen,Urine Not Detected (NotDetected); Potassium 4.3 mmol/L (3.5-5.1); Total Bilirubin 0.4 mg/dL (0.2-1.3); Total Protein 7.3 g/dL (6.3-8.2); Tricyclic Antidepressant,Urine Not Detected (NotDetected); Urn Cannabinoid Scrn Not Detected (NotDetected)
[2018-01-25 22:42] LABS: Partial Thromboplastin Time 23.2 sec (22.0-30.0); Prothrombin Time 9.6 sec (9.0-12.0)
[2018-01-25 22:57] LABS: Creatine Kinase 115 U/L (30-135)
[2018-01-25 23:10] LABS: Creatine Kinase MB 0.8 ng/mL (0.0-2.4); Troponin I <0.012 ng/mL (0.000-0.034)
--- NOTE | 2018-01-25 23:39 | XR ---
EXAMINATION TYPE: XR chest 1V portable DATE OF EXAM: 01/25/2018 COMPARISON: 02/18/2017 HISTORY: Altered mental status. Dementia. TECHNIQUE: Single frontal view of the chest is obtained. FINDINGS: There is no heart failure. Costophrenic angles are clear. Lungs are clear of consolidation . There is small linear density in the left midlung. Thoracic aorta is atheromatous. IMPRESSION: There is minimal subsegmental atelectasis in the left midlung. No significant change com pared to old exam. Normal heart.
[2018-01-26] MEDS ORDERED: SODIUM CHLORIDE 0.9% 500 ML IV STA (00:29)
[2018-01-26] MEDS ORDERED: NALOXONE 0.4 MG/ML 1 ML VIAL IV PRN (02:31)
[2018-01-26] MEDS ORDERED: hydrALAZINE HCL 50 MG TAB PO STA (06:18)
[2018-01-26] MEDS ORDERED: LABETALOL 200 MG TAB PO STA (06:18)
[2018-01-26] MEDS ORDERED: MELATONIN 3 MG TABLET PO PRN (10:41)
[2018-01-26] MEDS ORDERED: cloNIDine 0.3 MG/24HR PATCH 1 PATCH PATCH TRANSDERM SCH (10:45)
[2018-01-26] MEDS ORDERED: POTASSIUM CHLORIDE ER 20 MEQ TAB.ER PO SCH (10:45)
[2018-01-26] MEDS ORDERED: cloNIDine 0.1 MG/24HR PATCH 1 PATCH PATCH TRANSDERM SCH (11:00)
[2018-01-26 11:25] LABS: Glucose,Whole Blood 111 mg/dL (75-99)
[2018-01-26] MEDS: CARBIDOPA-LEVODOPA 25-100 MG 1 EACH TAB PO SCH (11:45)
[2018-01-26] MEDS ORDERED: ACETAMINOPHEN TAB 325 MG TAB PO PRN (11:57)
--- NOTE | 2018-01-26 11:57 | P.HPIM ---
History of Present Illness 72-year-old female is admitted for worsening confusion paranoia a. Patient if he is to have dementia which is progressive in nature at least moderate from the history I got from the patient and family members patient is alert and oriented 2 which apparently is her baseline patient is calm. Patient has other significant chronic medical problems and disability he's which include Parkinson's, Marly still arthritis for which patient is on prednisone presently at 10 mg., Type 2 diabetes mellitus hypertension. Patient blood pressure medications has are being titrated as an outpatient. Patient was recently started on hydralazine in process to wean off clonidine patient is presently on 0.2 mg of clonidine which will be switched to 0.1 mg here. Patient apparently was on Depakote which was discontinued by Her neurologist. Patient doesn't have any seizure disorder. Patient will be started on Seroquel for agitation Xanax will be discontinued. Had extensive discussion with the patient and the family member whose on bedside. PT and OT consultation possibility of discharge to subacute rehab. She denied any fever chills dysuria nausea vomiting fever cough. 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 Past Anesthesia/Blood Transfusion Reactions: No Reported Reaction Smoking Status: Former smoker - Past Family History Father History Unknown: Yes Family Medical History: CVA/TIA, Diabetes Mellitus Mother Family Medical History: No Reported History Brother(s) Family Medical History: Coronary Artery Disease (CAD), CVA/TIA Sister(s) Family Medical History: Cancer, Deep Vein Thrombosis (DVT) Additional Family Medical History / Comment(s): Lung cancer Son(s) Family Medical History: No Reported History Daughter(s) Family Medical History: No Reported History Medications and Allergies Home Medications Medication Instructions Recorded Confirmed Type Levothyroxine Sodium [Synthroid] 75 mcg PO DAILY@0600 12/07/16 01/26/18 History Aspirin 81 mg PO DAILY@0902/18/17 01/26/18 History Carbidopa-Levodopa 25-100 mg 3 tab PO BID@0600,1200 02/18/17 01/26/18 History [Sinemet 25-100 mg] Clopidogrel [Plavix] 75 mg PO DAILY 02/18/17 01/26/18 History predniSONE 10 mg PO DAILY@0902/18/17 01/26/18 History Pantoprazole Sodium [Protonix] 20 mg PO DAILY 09/01/17 01/26/18 History cloNIDine 0.3 MG/24HR PATCH 1 patch TOPICAL MO 09/01/17 01/26/18 History [Catapres-Tts 0.3MG Patch] ALPRAZolam [Xanax] 0.25 mg PO DAILY@0901/26/18 01/26/18 History Carbidopa-Levodopa 25-100 mg 2 tab PO DAILY@169901/26/18 01/26/18 History [Sinemet 25-100] Entacapone [Comtan] 200 mg PO TID@0600,1200,1700 01/26/18 01/26/18 History Furosemide [Lasix] 40 mg PO MOTH@59901/26/18 01/26/18 History HYDROcodone/APAP 7.5-325MG [[place] 1 tab PO Q6HR PRN 01/26/18 01/26/18 History 7.5-325] Insulin NPL/Insulin Lispro 20 units SQ DAILY@17001/26/18 01/26/18 History [humaLOG MIX 75-25 VIAL] Insulin NPL/Insulin Lispro 35 units SQ DAILY@0901/26/18 01/26/18 History [humaLOG MIX 75-25 VIAL] Labetalol HCl 200 mg PO BID@0900,2100 01/26/18 01/26/18 History Multivitamin [Multivitamins Adult 2 tab PO DAILY@1200 01/26/18 01/26/18 History Gummies] Oxybutynin Chloride [Ditropan] 5 mg PO BID@0900,2100 01/26/18 01/26/18 History Potassium Chloride [Klor-Con 10] 20 meq PO MOTH 01/26/18 01/26/18 History Sennosides/Docusate Sodium [Phyllis 1 tab PO DAILY@0600 01/26/18 01/26/18 History Colace] hydrALAZINE HCL [Apresoline] 100 mg PO TID@0600,1200,1700 01/26/18 01/26/18 History Allergies Allergy/AdvReac Type Severity Reaction Status Date / Time codeine AdvReac Nausea & Verified 01/26/18 06:32 Vomiting morphine AdvReac Nausea & Verified 01/26/18 06:32 Vomiting Physical Exam Vitals: Vital Signs Temp Pulse Pulse Resp BP BP Pulse Ox 01/26/18 09:54 80 18 173/67 01/26/18 08:01 98.0 F 70 18 197/89 98 01/26/18 08:00 80 18 01/26/18 07:35 67 18 185/90 99 01/26/18 07:05 97.9 F 75 15 192/94 98 01/26/18 06:25 67 17 192/88 99 01/26/18 06:17 69 18 196/104 100 01/26/18 03:55 71 18 170/83 99 01/26/18 01:46 68 17 164/89 99 01/25/18 23:59 77 15 150/71 98 01/25/18 22:53 77 18 138/71 98 01/25/18 21:54 97.9 F 83 20 172/73 94 L Intake and Output 01/25/18 01/26/18 01/26/18 22:59 06:59 14:59 Other: Weight 100.244 kg PHYSICAL EXAMINATION: GENERAL: The patient is alert and oriented x2, not in any acute distress. Obese , flat affect. HEENT: Pupils are round and equally reacting to light. EOMI. No scleral icterus. No conjunctival pallor. Normocephalic, atraumatic. No pharyngeal erythema. No thyromegaly. CARDIOVASCULAR: S1 and S2 present. No murmurs, rubs, or gallops. PULMONARY: Chest is clear to auscultation, no wheezing or crackles. ABDOMEN: Soft, nontender, nondistended, normoactive bowel sounds. No palpable organomegaly. MUSCULOSKELETAL: No joint swelling or deformity. EXTREMITIES: No cyanosis, clubbing, or pedal edema. NEUROLOGICAL: Gross neurological examination did not reveal any focal deficits. SKIN: No rashes. Results CBC & Chem 7: 01/25/18 22:00 01/25/18 22:00 Labs: Abnormal Lab Results - Last 24 Hours (Table) 01/25/18 01/25/18 01/25/18 Range/Units 22:00 22:00 22:00 RBC 3.40 L (3.80-5.40) m/uL Hgb 9.5 L (11.4-16.0) gm/dL Hct 30.0 L (34.0-46.0) % Chloride 111 H (98-107) mmol/L Carbon Dioxide 21 L (22-30) mmol/L BUN 30 H (7-17) mg/dL Creatinine 1.70 H (0.52-1.04) mg/dL Glucose 162 H (74-99) mg/dL POC Glucose (mg/dL) (75-99) mg/dL Urine Protein Trace H (Negative) Urine Ketones Trace H (Negative) Urine Opiates Screen Detected H (NotDetected) U Benzodiazepines Scrn Detected H (NotDetected) 01/26/18 Range/Units 11:21 RBC (3.80-5.40) m/uL Hgb (11.4-16.0) gm/dL Hct (34.0-46.0) % Chloride (98-107) mmol/L Carbon Dioxide (22-30) mmol/L BUN (7-17) mg/dL Creatinine (0.52-1.04) mg/dL Glucose (74-99) mg/dL POC Glucose (mg/dL) 111 H (75-99) mg/dL Urine Protein (Negative) Urine Ketones (Negative) Urine Opiates Screen (NotDetected) U Benzodiazepines Scrn (NotDetected) Thrombosis Risk Factor Assmnt - Choose All That Apply Any of the Below Risk Factors Present?: Yes Each Factor Represents 1 point: Obesity (BMI >25) Other Risk Factors: Yes Each Risk Factor Represents 2 Points: Age 61-74 years Other congenital or acquired thrombophilia - If yes, enter type in comment: No Thrombosis Risk Factor Assessment Total Risk Factor Score: 3 Thrombosis Risk Factor Assessment Level: Moderate Risk Assessment and Plan Plan: -Delirium: Secondary to worsening dementia. Patient was started on Seroquel at nighttime as needed. Possibly of discharge to subacute rehab or long-term nursing facility. -Dementia possibly Lewy body dementia, avoid benzodiazepines barbiturates opiates and anticholinergic medications. -Hypertension: As mentioned above will wean off clonidine rest of her home medications will be resumed. -Hypothyroidism -Type 2 diabetes mellitus: Metformin will be discontinued because of her poor renal function -Acute renal failure on chronic kidney disease stage II: Possibly prerenal azotemia Will repeat basic metabolic profile tomorrow hold off metformin and other nephrotoxic agents and diuretics. Patient is basically using diuretics for peripheral edema. -Parkinson's: Resume her home medications monitor clinically -Diabetic peripheral neuropathy -Changed a lot arthritis: On prednisone which will be continued -Deconditioning secondary to worsening dementia subacute rehabilitation placement.
[2018-01-26] MEDS: INSULIN ASPART 100 UNIT/ML 1 ML 10 ML VIAL SQ SCH ×3 (12:06→21:01)
[2018-01-26] MEDS ORDERED: ALPRAZolam 0.25 MG TAB PO PRN (14:00)
[2018-01-26] MEDS: hydrALAZINE HCL 50 MG TAB PO SCH ×2 (15:09→21:02)
[2018-01-26] MEDS: ENTACAPONE 200 MG TAB PO SCH ×2 (15:09→21:02)
[2018-01-26] MEDS ORDERED: INSULN ASP PRT/INSULIN ASPART 100 UNIT/ML 10 ML VIAL SQ SCH ×2 (18:00→21:00)
[2018-01-26 18:04] LABS: Glucose,Whole Blood 140 mg/dL (75-99)
[2018-01-26 20:17] LABS: Glucose,Whole Blood 175 mg/dL (75-99)
[2018-01-26] MEDS ORDERED: QUEtiapine 25 MG TAB PO SCH (21:00)
[2018-01-26] MEDS: OXYBUTYNIN CHLORIDE 5 MG TAB PO SCH (21:02)
[2018-01-26] MEDS: LABETALOL 200 MG TAB PO SCH (21:02)
[2018-01-27] MEDS: CARBIDOPA-LEVODOPA 25-100 MG 1 EACH TAB PO SCH ×2 (05:07→13:06)
[2018-01-27] MEDS ORDERED: LEVOTHYROXINE 75 MCG TAB PO SCH (06:30)
[2018-01-27 07:00] LABS: Glucose,Whole Blood 112 mg/dL (75-99)
[2018-01-27 07:20] VITALS: RESP 18
[2018-01-27] MEDS ORDERED: PANTOPRAZOLE 40 MG TABLET PO SCH (07:30)
[2018-01-27] MEDS: INSULIN ASPART 100 UNIT/ML 1 ML 10 ML VIAL SQ SCH ×2 (07:58→13:07)
[2018-01-27] MEDS: hydrALAZINE HCL 50 MG TAB PO SCH (08:05)
[2018-01-27] MEDS: ENTACAPONE 200 MG TAB PO SCH (08:05)
[2018-01-27] MEDS: OXYBUTYNIN CHLORIDE 5 MG TAB PO SCH (08:05)
[2018-01-27] MEDS: LABETALOL 200 MG TAB PO SCH (08:05)
[2018-01-27] MEDS ORDERED: ASPIRIN 81 MG PO SCH (09:00)
[2018-01-27] MEDS ORDERED: INSULN ASP PRT/INSULIN ASPART 100 UNIT/ML 10 ML VIAL SQ SCH (09:00)
[2018-01-27] MEDS ORDERED: CLOPIDOGREL 75 MG TAB PO SCH (09:00)
[2018-01-27] MEDS ORDERED: predniSONE 10 MG TAB PO SCH (09:00)
--- NOTE | 2018-01-27 10:49 | P.DS ---
Providers Date of admission: 01/26/18 02:33 Attending physician: Chandrakant Espinosa Primary care physician: Evelin Marcus [facility] Course: 72-year-old female came in with the complaints of paranoia a patient does have mild to moderate clue body dementia. Patient does have history of gaint cell arteritis. Patient has significant symptomatically improvement the regarding paranoid and delirium with the Seroquel. Patient opiates and benzodiazepines were discontinued patient will use Tylenol instead for pain. Patient's clonidine is being tapered down patient blood pressure is still elevated. Patient diuretic therapy which was in the form of Lasix is being held because of poor renal function. Patient will be started on amlodipine for blood pressure. Her blood pressure is not controlled patient will need diuretic therapy in the form off high dose of chlorthalidone or low-dose of Lasix. Tapering clonidine is definitely appropriate patient is more talkative today. More alert and much less confusion. PHYSICAL EXAMINATION: GENERAL: The patient is alert and oriented x3, not in any acute distress. Well developed, well nourished. HEENT: Pupils are round and equally reacting to light. EOMI. No scleral icterus. No conjunctival pallor. Normocephalic, atraumatic. No pharyngeal erythema. No thyromegaly. CARDIOVASCULAR: S1 and S2 present. No murmurs, rubs, or gallops. PULMONARY: Chest is clear to auscultation, no wheezing or crackles. ABDOMEN: Soft, nontender, nondistended, normoactive bowel sounds. No palpable organomegaly. MUSCULOSKELETAL: No joint swelling or deformity. EXTREMITIES: No cyanosis, clubbing, or pedal edema. NEUROLOGICAL: Gross neurological examination did not reveal any focal deficits. SKIN: No rashes. Assessment and Plan Plan: -Delirium: Secondary to worsening dementia. Patient was started on Seroquel at nighttime dose of which can be increased patient did not sleep well because of the withdrawal from benzodiazepines a bili which were discontinued and patient will be discharged to subacute rehabilitation today and patient will follow-up Dr. Marcus -Dementia possibly Lewy body dementia, avoid benzodiazepines barbiturates opiates and anticholinergic medications. -Hypertension: As mentioned above will wean off clonidine rest of her home medications will be resumed. Patient was started on amlodipine if her blood pressure is not controlled patient need to be resumed on diuretic therapy. I still have basic metabolic profile pending from today. -Hypothyroidism -Type 2 diabetes mellitus: Metformin will be discontinued because of her poor renal function -Acute renal failure on chronic kidney disease stage II: Possibly prerenal azotemia pending basic metabolic profile -Parkinson's: Resume her home medications -Diabetic peripheral neuropathy -Gaint cell arteritis: On prednisone which will be continued -Deconditioning secondary to worsening dementia subacute rehabilitation placement. Patient Condition at Discharge: Poor Plan - Discharge Summary Discharge Rx Participant: No New Discharge Prescriptions: New amLODIPine [Norvasc] 10 mg PO DAILY #7 tablet cloNIDine 0.1 MG/24HR PATCH [Catapres-TTS] 1 patch TRANSDERM Q7D patch QUEtiapine [SEROquel] 25 mg PO HS tab Continue Levothyroxine Sodium [Synthroid] 75 mcg PO DAILY@0600 Carbidopa-Levodopa 25-100 mg [Sinemet 25-100 mg] 3 tab PO BID@0600,1200 predniSONE 10 mg PO DAILY@0900 Clopidogrel [Plavix] 75 mg PO DAILY Aspirin 81 mg PO DAILY@0900 Pantoprazole Sodium [Protonix] 20 mg PO DAILY Entacapone [Comtan] 200 mg PO TID@0600,1200,1700 hydrALAZINE HCL [Apresoline] 100 mg PO TID@0600,1200,1700 Labetalol HCl 200 mg PO BID@0900,2100 Insulin NPL/Insulin Lispro [humaLOG MIX 75-25 VIAL] 20 units SQ DAILY@1700 Insulin NPL/Insulin Lispro [humaLOG MIX 75-25 VIAL] 35 units SQ DAILY@0900 Oxybutynin Chloride [Ditropan] 5 mg PO BID@0900,2100 Carbidopa-Levodopa 25-100 mg [Sinemet 25-100 mg] 2 tab PO DAILY@1700 Multivitamin [Multivitamins Adult Gummies] 2 tab PO DAILY@1200 Sennosides/Docusate Sodium [Phyllis Colace] 1 tab PO DAILY@0600 Discontinued cloNIDine 0.3 MG/24HR PATCH [Catapres-Tts 0.3MG Patch] 1 patch TOPICAL MO HYDROcodone/APAP 7.5-325MG [[place] 7.5-325] 1 tab PO Q6HR PRN PRN Reason: Pain Potassium Chloride [Klor-Con 10] 20 meq PO MOTH Furosemide [Lasix] 40 mg PO MOTH@0600 ALPRAZolam [Xanax] 0.25 mg PO DAILY@0900 Discharge Medication List Levothyroxine Sodium [Synthroid] 75 mcg PO DAILY@0600 12/07/16 [History] Aspirin 81 mg PO DAILY@0900 02/18/17 [History] Carbidopa-Levodopa 25-100 mg [Sinemet 25-100 mg] 3 tab PO BID@0600,1200 [History] Clopidogrel [Plavix] 75 mg PO DAILY 02/18/17 [History] predniSONE 10 mg PO DAILY@0900 02/18/17 [History] Pantoprazole Sodium [Protonix] 20 mg PO DAILY 09/01/17 [History] Carbidopa-Levodopa 25-100 mg [Sinemet 25-100 mg] 2 tab PO DAILY@1700 01/26/18 [ History] Entacapone [Comtan] 200 mg PO TID@0600,1200,1700 01/26/18 [History] Insulin NPL/Insulin Lispro [humaLOG MIX 75-25 VIAL] 20 units SQ DAILY@17001/26 [History] Insulin NPL/Insulin Lispro [humaLOG MIX 75-25 VIAL] 35 units SQ DAILY@0900 01/26 [History] Labetalol HCl 200 mg PO BID@0900,209901/26/18 [History] Multivitamin [Multivitamins Adult Gummies] 2 tab PO DAILY@1200 01/26/18 [History ] Oxybutynin Chloride [Ditropan] 5 mg PO BID@0900,209901/26/18 [History] Sennosides/Docusate Sodium [Phyllis Colace] 1 tab PO DAILY@0600 01/26/18 [History] hydrALAZINE HCL [Apresoline] 100 mg PO TID@0600,1200,1700 01/26/18 [History] QUEtiapine [SEROquel] 25 mg PO HS tab 01/27/18 [Rx] amLODIPine [Norvasc] 10 mg PO DAILY #7 tablet 01/27/18 [Rx] cloNIDine 0.1 MG/24HR PATCH [Catapres-TTS] 1 patch TRANSDERM Q7D patch [Rx] Follow up Appointment(s)/Referral(s): Evelin Marcus MD [Primary Care Provider] - 3 Days Discharge Disposition: TRANSFER TO SNF/ECF
[2018-01-27 11:08] LABS: Glucose,Whole Blood 110 mg/dL (75-99)
[2018-01-27 11:24] LABS: Potassium 4.1 mmol/L (3.5-5.1)
[2018-01-27 11:43] VITALS: BP 150/87; PULSE 79; TEMP 98.7
== END 2018-01-27 13:31 ==
LOC: EC 21:46 → 5MS5E 01-26 02:33
PROVIDERS: ADMIT Internal Medicine; ATTEND Internal Medicine
DX: F03.90 Unspecified dementia, unspecified severity, without behavioral disturbance, psychotic disturbance, mood disturbance, and anxiety (principal); M19.90 Unspecified osteoarthritis, unspecified site; I12.9 Hypertensive chronic kidney disease with stage 1 through stage 4 chronic kidney disease, or unspecified chronic kidney disease; N18.2 Chronic kidney disease, stage 2 (mild); E11.22 Type 2 diabetes mellitus with diabetic chronic kidney disease; G20 Parkinson's disease; E78.5 Hyperlipidemia, unspecified; E11.42 Type 2 diabetes mellitus with diabetic polyneuropathy; E03.9 Hypothyroidism, unspecified; N17.9 Acute kidney failure, unspecified; M31.6 Other giant cell arteritis; F13.239 Sedative, hypnotic or anxiolytic dependence with withdrawal, unspecified; R45.1 Restlessness and agitation; E66.9 Obesity, unspecified; Z68.39 Body mass index [BMI] 39.0-39.9, adult; Z98.51 Tubal ligation status; F41.9 Anxiety disorder, unspecified; F32.9 Major depressive disorder, single episode, unspecified; Z87.891 Personal history of nicotine dependence; Z79.82 Long term (current) use of aspirin; Z79.02 Long term (current) use of antithrombotics/antiplatelets; Z79.4 Long term (current) use of insulin; Z79.890 Hormone replacement therapy; Z79.52 Long term (current) use of systemic steroids; Z88.5 Allergy status to narcotic agent; Z86.73 Personal history of transient ischemic attack (TIA), and cerebral infarction without residual deficits; Z82.49 Family history of ischemic heart disease and other diseases of the circulatory system; Z82.3 Family history of stroke; Z83.2 Family history of diseases of the blood and blood-forming organs and certain disorders involving the immune mechanism; Z83.3 Family history of diabetes mellitus; Z80.8 Family history of malignant neoplasm of other organs or systems; Z80.1 Family history of malignant neoplasm of trachea, bronchus and lung
CPT/HCPCS: 99285 ×2; 36415; 93005; 97162; 97166; 80053; 80048; 84443; 82550; 82553; 84484; 85025; 85610; 85730; 81003; 80306; 83036; 71045; G0378 ×2; J7512

== ENCOUNTER → 2019-02-08 | Outpatient (CLI) | payer MEDICARE ==
--- NOTE | 2019-02-09 17:46 | ECHOF ---
Referral Reason:R01.1 cardiac murmur MEASUREMENTS -------- HEIGHT: 165.1 cm WEIGHT: 111.1 kg BP: RVIDd: 3.0 cm (< 3.3) IVSd: 1.6 cm (0.6 - 1.1) LVIDd: 4.2 cm (3.9 - 5.3) LVPWd: 1.4 cm (0.6 - 1.1) IVSs: 2.3 cm LVIDs: 3.2 cm LVPWs: 2.0 cm LAESV Index (A-L): 14.69 ml/m Ao Diam: 3.5 cm (2.0 - 3.7) AV Cusp: 0.7 cm (1.5 - 2.6) LA Diam: 3.7 cm (2.7 - 3.8) EPSS: 0.6 cm MV E Costa: 0.94 m/s MV DecT: 198 ms MV A Costa: 1.16 m/s MV E/A Ratio: 0.81 AV maxP.51 mmHg AV maxP.51 mmHg AV meanP.99 mmHg RAP: 5.00 mmHg RVSP: 25.37 mmHg MV EF SLOPE: 94.68 mm/s (70 - 150) MV EXCURSION: 1.56 cm (> 18.000) FINDINGS -------- Sinus rhythm. This was a technically adequate study. There is moderate concentric left ventricular hypertrophy. Overall left ventricular systolic functi on is low-normal with, an EF between 50 - 55 %. Mitral Doppler inflow pattern suggests diastolic fi lling abnormality. The right ventricle is normal in size. Left atrium is normal size by volume. The right atrium was not well visualized. Interatrial and interventricular septum intact. Aortic valve is trileaflet and is moderately thickened. There is no evidence of aortic regurgitatio n. There is [id number] aortic stenosis present. Peak/mean gradient across the valve is 39 .51mmHg / 21.99mmHg. Mild mitral annular calcification present. Moderate mitral regurgitation is present. No regurgitation noted There is no evidence of pulmonary hypertension. The right ventricular syst olic pressure, as measured by Doppler, is 25.37mmHg. There is no pulmonic regurgitation present. The aortic root size is normal. IVC not well visualized There is no pericardial effusion. CONCLUSIONS -------- 1. Sinus rhythm. 2. This was a technically adequate study. 3. There is moderate concentric left ventricular hypertrophy. 4. Overall left ventricular systolic function is low-normal with, an EF between 50 - 55 %. 5. The right ventricle is normal in size. 6. Left atrium is normal size by volume. 7. The right atrium was not well visualized. 8. Interatrial and interventricular septum intact. 9. Aortic valve is trileaflet and is moderately thickened. 10. There is no evidence of aortic regurgitation. 11. There is [id number] aortic stenosis present. 12. Peak/mean gradient across the valve is 39.51mmHg / 21.99mmHg. 13. Mild mitral annular calcification present. 14. Moderate mitral regurgitation is present. 15. No regurgitation noted 16. There is no evidence of pulmonary hypertension. 17. The right ventricular systolic pressure, as measured by Doppler, is 25.37mmHg. 18. There is no pulmonic regurgitation present. 19. The aortic root size is normal. 20. IVC not well visualized 21. There is no pericardial effusion. GATE PERSON: Kenzie Clark RDCS
== END | disposition home or self-care (01) ==
LOC: RADECHMAIN 11:15
PROVIDERS: ATTEND Family Medicine
DX: I35.0 Nonrheumatic aortic (valve) stenosis (principal); I34.0 Nonrheumatic mitral (valve) insufficiency
CPT/HCPCS: 93306